=== PATIENT | female | born 1955 | race Caucasian/White ===

== ENCOUNTER → 2017-03-08 | Outpatient (CLI) | payer BC ==
[2017-03-08 12:06] LABS: CHOLESTEROL/HDL RATIO 5.3
== END | disposition home or self-care (01) ==
LOC: C.LAB1850 10:19
PROVIDERS: ATTEND Family Medicine
DX: Z00.00 Encounter for general adult medical examination without abnormal findings (principal)

== ENCOUNTER → 2017-06-28 | Outpatient (CLI) | payer BC, OTHER ==
[~2017-06-28] MED LIST: CIPR-255 PO; EFF75 PO; METR-163 PO; [UNRECOGNIZED DRUG - OTHER] PO
--- NOTE | 2017-06-28 14:58 | MAMMOGRAPHY REPORT ---
BILATERAL DIGITAL SCREENING MAMMOGRAM TOMOSYNTHESIS WITH CAD: 06/28/2017 CLINICAL HISTORY: Routine screening. TECHNIQUE: Breast tomosynthesis in addition to standard 2D mammography was performed. Current study was also evaluated with a Computer Aided Detection (CAD) system. COMPARISON: Comparison is made to exams dated: 05/11/2016 mammogram, 04/17/2015 mammogram, 02/21/2014 mammogram, 04/21/2009 mammogram - [facility], 06/05/2007, and 03/23/2004 mammogram - [facility]. BREAST COMPOSITION: The tissue of both breasts is almost entirely fatty. FINDINGS: There are benign-appearing calcifications in both breasts. No suspicious mass, architectur al distortion or cluster of suspicious microcalcifications is seen. IMPRESSION: ACR BI-RADS CATEGORY 1: NEGATIVE There is no mammographic evidence of malignancy. A 1 year screening mammogram is recommended. The pa tient will receive written notification of the results. Approximately 10% of breast cancers are not detected with mammography. A negative mammographic report should not delay biopsy if a clinically suggestive mass is present. Doreen Rivera M.D. ay/:06/28/2017 12:40:52 Rail Filler: David LOMAS([place])(M), [facility] letter sent: Normal 1/2 BI-RADS Code: ACR BI-RADS Category 1: Negative
== END | disposition home or self-care (01) ==
LOC: C.MAMM 10:23
PROVIDERS: ATTEND Nurse Practitioner Adult Health
DX: Z12.31 Encounter for screening mammogram for malignant neoplasm of breast (principal)

== ENCOUNTER 2017-11-08 18:23 | Emergency (ER) | payer OTHER ==
[~2017-11-08] VITALS: Ht 167.6 cm; Wt 90.7 kg
[2017-11-08 18:28] VITALS: TEMP 37.1; Ht 167.6 cm; Wt 90.7 kg
--- NOTE | 2017-11-08 19:18 | EMERGENCY ROOM VISIT NOTE ---
History First contact with patient: 18:31 Chief Complaint: ABDOMINAL PAIN Stated Complaint: ABD PAIN Nursing Triage Summary: Ambulates to room. Pt reports constipation x 2 weeks with bilateral lower abd pain. Small hard, pellet like bm yesterday. Pt has been taking stool softener, probiotics. Pt states, " My lower belly feels like it could explode." History of Present Illness The patient is a 62 year old female who presents to the Emergency Room via private with complaints of "abdominal pain" the patient states that for the past 2 weeks she has had difficulty with moving her bowels. She states that this started shortly thereafter taking antibiotics and steroids for an ear infection. No diarrhea. She states that she has small bowel movements but nothing like she should be experiencing. She also notes abdominal bloating, and eructation. Pain is a 4/10. With walking it is a 9/10.. She describes a sensation as if her stomach is going to "fall off". She has tried stool softeners, probiotics and acidophilus without relief. She notes numerous abdominal surgeries in the past with her appendix being removed, gallbladder being removed and her uterus. No fevers, chills, chest pain, shortness of breath, vaginal discharge, urinary symptoms. Review of Systems A complete 10-point Review of Systems was discussed with the patient, with pertinent positives and negatives listed in the History of Present Illness. All remaining Review of Systems questions can be considered negative unless otherwise specified. Past Medical/Surgical History Surgeries as noted in HPI Family History Non contributory Social History Smoking Status: Former Smoker Social History: Pt. lives locally Current/Historical Medications Scheduled Ciprofloxacin Hcl (Cipro), 500 MG PO BID Metronidazole (Flagyl), 500 MG PO TID Venlafaxine Hcl (Effexor), 75 MG PO DAILY [Revatol], 1 DOSE PO DAILY Allergies Coded Allergies: Codeine (Verified Adverse Reaction, Severe, HALLUCINATIONS, 11/08/17) Morphine (Verified Adverse Reaction, Severe, HALLUCINATIONS, 11/08/17) Physical Exam Vital Signs Date Time Temp Pulse Resp B/P (MAP) Pulse Ox O2 Delivery O2 Flow Rate FiO2 11/08/17 23:11 99 18 125/86 96 11/08/17 22:13 91 18 109/75 95 Room Air 11/08/17 20:43 98 124/77 97 11/08/17 18:28 37.1 112 20 122/85 98 Room Air Physical Exam VITAL SIGNS - Vital signs and nursing notes were reviewed. Stable. Tachycardic GENERAL -62-year-old female appearing her stated age who is in no acute distress. Communicates well with provider and answers questions appropriately. SKIN - Without rashes. No meningeal or petechial rash. HEAD - NC/AT. EYES - PERRL with EOMI bilaterally. Sclera anicteric. EARS - No deformities of external structures noted on gross examination bilaterally. NOSE - Midline and without cyanosis. No epistaxis or purulent drainage noted. MOUTH/OROPHARYNX - Without perioral cyanosis LUNGS - Chest wall symmetric without accessory muscle use, intercostals retractions, or central cyanosis. Normal vesicular breath sounds CTA B/L. No wheezes, rales, or rhonchi appreciated. CARDIAC - RRR with S1/S2. No murmur, rubs, or gallops appreciated. ABDOMEN - Abdominal contour normal without pulsations or visible masses. BS normoactive all four quadrants. Generalized abdominal tenderness with evidence of bloating noted in the inferior quadrants But no palpable masses, hepatosplenomegaly, or ascites noted. EXTREMITIES - No clubbing or peripheral cyanosis. No pretibial edema present. +5 /5 strength noted in UE/LE bilaterally. NEUROLOGIC - Cranial nerves II through XII grossly intact. Sensory intact to light touch throughout. PSYCH - A&O, and cooperates fully with examiner. Pt is very pleasant and interacts well with examiner. Medical Decision & Procedures ER Provider Diagnostic Interpretation: KUB HISTORY: Acute generalized abdominal pain Abd pain, no bm COMPARISON: None. FINDINGS: The bowel gas pattern is non-obstructive. Mild gaseous distention of colon within the abdominal right lower quadrant. Cholecystectomy clips are noted. There is no organomegaly. Calcifications of the pelvis suggest phleboliths. No renal calculi. No ureteral calculi. No pneumoperitoneum or pneumatosis. No fracture. 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 IMPRESSION: Nonobstructive bowel gas pattern. Electronically signed by: Garrett Vargas M.D. 11/08/2017 7:35 PM Dictated Date/Time: 11/08/2017 7:34 PM ABDOMEN AND PELVIS CT WITH IV AND ORAL CONTRAST CT DOSE: 1161.78 mGy.cm HISTORY: Generalized abdominal pain. No bowel movements. TECHNIQUE: Multiaxial CT images of the abdomen and pelvis were performed following the use of intravenous and oral contrast. A dose lowering technique was utilized adhering to the principles of ALARA. COMPARISON STUDY: KUB 11/08/2017. FINDINGS: The lung bases are clear. No pneumoperitoneum. No pneumatosis. No fractures within the visualized osseous structures. Hepatic steatosis. Cholecystectomy. A 4 mm hypodense lesion within the left hepatic lobe. This is too small to characterize. The pancreas, spleen, and right adrenal gland are unremarkable. There is a 7 mm indeterminate nodule within the left adrenal gland. 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 A few scattered bilateral renal hypodense lesions within the largest in the left kidney measuring 9 mm. These are technically too small to characterize but statistically represent cysts. No hydronephrosis. Hysterectomy. The bladder is unremarkable. There is an inflamed diverticulum within the distal sigmoid colon with surrounding fat stranding. This is consistent with acute diverticulitis. No perforation or abscess at this time. No evidence for bowel obstruction. IMPRESSION: 1. Acute sigmoid diverticulitis. No perforation or abscess at this time. Follow-up nonemergent colonoscopy can be performed once the patient's diverticulitis has resolved to exclude the less likely possibility of an underlying lesion. 2. Additional findings as described above. Electronically signed by: Darell [place] M.D. 11/08/2017 9:48 PM Dictated Date/Time: 11/08/2017 9:41 PM Laboratory Results 11/08/17 19:00 Red Blood Count 5.09, Mean Corpuscular Volume 88.4, Mean Corpuscular Hemoglobin 30.1, Mean Corpuscular Hemoglobin Concent 34.0, Mean Platelet Volume 9.1, Neutrophils (%) (Auto) 66.7, Lymphocytes (%) (Auto) 23.6, Monocytes (%) (Auto) 7.1, Eosinophils (%) (Auto) 0.9, Basophils (%) (Auto) 0.2, Neutrophils # (Auto) 8.60, Lymphocytes # (Auto) 3.05, Monocytes # (Auto) 0.92, Eosinophils # (Auto) 0.12, Basophils # (Auto) 0.03 11/08/17 19:00 Test 11/08/17 18:45 11/08/17 19:00 Urine Color YELLOW Urine Appearance CLEAR (CLEAR) Urine pH 7.5 (4.5-7.5) Urine Specific [place] 1.011 (1.000-1.030) Urine Protein NEG (NEG) Urine Glucose (UA) NEG (NEG) Urine Ketones NEG (NEG) Urine Occult Blood NEG (NEG) Urine Nitrite NEG (NEG) Urine Bilirubin NEG (NEG) Urine Urobilinogen NEG (NEG) Urine Leukocyte Esterase SMALL (NEG) Urine WBC (Auto) 1-5 /hpf (0-5) Urine RBC (Auto) 0-4 /hpf (0-4) Urine Hyaline Casts (Auto) 0 /lpf (0-5) Urine Epithelial Cells (Auto) 20-30 /lpf (0-5) Urine Bacteria (Auto) NEG (NEG) White Blood Count 12.91 K/uL (4.8-10.8) Red Blood Count 5.09 M/uL (4.2-5.4) Hemoglobin 15.3 g/dL (12.0-16.0) Hematocrit 45.0 % (37-47) Mean Corpuscular Volume 88.4 fL (80-100) Mean Corpuscular Hemoglobin 30.1 pg (25-34) Mean Corpuscular Hemoglobin Concent 34.0 g/dl (32-36) Platelet Count 231 K/uL (130-400) Mean Platelet Volume 9.1 fL (7.4-10.4) Neutrophils (%) (Auto) 66.7 % Lymphocytes (%) (Auto) 23.6 % Monocytes (%) (Auto) 7.1 % Eosinophils (%) (Auto) 0.9 % Basophils (%) (Auto) 0.2 % Neutrophils # (Auto) 8.60 K/uL (1.4-6.5) Lymphocytes # (Auto) 3.05 K/uL (1.2-3.4) Monocytes # (Auto) 0.92 K/uL (0.11-0.59) Eosinophils # (Auto) 0.12 K/uL (0-0.5) Basophils # (Auto) 0.03 K/uL (0-0.2) RDW Standard Deviation 42.0 fL (36.4-46.3) RDW Coefficient of Variation 13.0 % (11.5-14.5) Immature Granulocyte % (Auto) 1.5 % Immature Granulocyte # (Auto) 0.19 K/uL (0.00-0.02) Anion Gap 6.0 mmol/L (3-11) Est Creatinine Clear Calc Drug Dose 76.2 ml/min Estimated GFR () 81.6 Estimated GFR (Non- 70.4 BUN/Creatinine Ratio 12.5 (10-20) Calcium Level 8.5 mg/dl (8.5-10.1) Magnesium Level 2.5 mg/dl (1.8-2.4) Total Bilirubin 0.4 mg/dl (0.2-1) Aspartate Amino Transf (AST/SGOT) 19 U/L (15-37) Alanine Aminotransferase (ALT/SGPT) 38 U/L (12-78) Alkaline Phosphatase 145 U/L (45-117) Total Protein 7.4 gm/dl (6.4-8.2) Albumin 3.8 gm/dl (3.4-5.0) Globulin 3.6 gm/dl (2.5-4.0) Albumin/Globulin Ratio 1.1 (0.9-2) Lipase 217 U/L (73-393) Thyroid Stimulating Hormone (TSH) 0.875 uIu/ml (0.300-4.500) Medications Administered Medications (Trade) Dose Ordered Sig/Nader Route Start Time Stop Time Status Last Admin Dose Admin Ciprofloxacin (Cipro 500MG Home Pack) 1 homepack UD STAT PO 11/08/17 22:49 11/08/17 22:50 DC 11/08/17 23:03 1 HOMEPACK Metronidazole (Flagyl Tab) 500 mg NOW STAT PO 11/08/17 22:49 11/08/17 22:50 DC 11/08/17 23:04 500 MG Metronidazole (Flagyl Tab) 500 mg NOW STAT PO 11/08/17 22:49 11/08/17 22:50 DC 11/08/17 23:04 500 MG Medical Decision Patient was seen and evaluated as above in room before. Review was performed of nursing notes and vital signs. After obtaining a thorough history and physical examination the above work up was performed. She presents to us today with 2 weeks of constipation/abdominal pain. KUB was obtained. Nonobstructive bowel gas pattern. Baseline labs were obtained. There is leukocytosis but no concerning anemia. Metabolic panel does reveal hypomagnesemia slightly as well as some alk phos elevation. CT scan was obtained with the use of IV and oral contrast of the abdomen and pelvis. Results as above. Acute diverticulitis noted. She appears stable for outpatient management. She is hemodynamically stable and is afebrile. Minimal white count. No perforation. Benefit versus risk of Augmentin versus Cipro/Flagyl discussed. Decision was made to pursue outpatient Cipro Flagyl. She is to follow with the family doctor or return with worsening. She was educated upon incidentals today. The patient was educated upon management, had questions answered prior to discharge, and was discharged home in good condition. Because her pharmacy was closed she was given a home pack of Cipro here, with 1 tablet being for now as well as 1 tablet of Flagyl with one being for home. Case was discussed with the attending physician. In the evaluation and treatment of this patient the following differential diagnoses were entertained: Diverticulitis, appendicitis, pelvic etiology, constipation, among others. Impression Primary Impression: Diverticulitis Departure Information Dispostion Home / Self-Care Condition GOOD Prescriptions Metronidazole (Flagyl) 500 Mg Tab 500 MG PO TID, #28 TAB Prov: Keshawn Cavazos PA-C 11/08/17 Ciprofloxacin Hcl (CIPRO) 500 Mg Tab 500 MG PO BID for 9 Days, #18 TAB Prov: Keshawn Cavazos PA-C 11/08/17 Referrals Magui Raygoza D.O. (PCP) Patient Instructions Diverticulitis Dc, ED Diet Chambers, ED Diet Clear Liquid, [facility] Additional Instructions You have been treated in the Emergency Department your Abdominal Pain. You have diverticulitis. I recommend a clear liquid diet for 24 hours. Please refer to the attached handout. Then progressed to a bland diet for 1 day as well. If you have worsening of symptoms please go back to a clear diet for 1 day. Please watch for signs of a fever if this would develop we have worsening symptoms please return. Ciprofloxacin 500 mg every 12 hours. Please do not do any heavy lifting with this medication. Flagyl (metronidazole) 500 mg every 8 hours. Please do not drink alcohol with this. For pain control, you can use the following [id number] medicines (if >12 yo): - Regular strength (325mg/tab) Tylenol (acetaminophen) 2 tabs every 4-6 hours as needed. Do not exceed 12 tablets in a 24 hour period. Avoid taking more than 3 grams (3000 mg) of Tylenol per day. This includes any other sources of acetaminophen you may take on a regular basis. - Regular strength (200 mg/tab) Advil (ibuprofen) 1-2 tabs every 4-6 hours as needed. Do not exceed a dose of 3200 mg per day. Drink plenty of water and stay well hydrated. As with any trip to the Emergency Department, you should follow-up with your Primary Care Provider from today's visit. Please follow-up regarding her CAT scan and your symptoms today. Return to the emergency department if your symptoms persist despite treatment plan outlined above or if the following symptoms occur: increased fevers, chills , worsening nausea/vomiting, blood in your stool or urine.
[2017-11-08 19:22] LABS: BASO % 0.2 %; BASO ABS # 0.03 K/uL (0-0.2); EOS % 0.9 %; EOS ABS # 0.12 K/uL (0-0.5); HEMOGLOBIN 15.3 g/dL (12.0-16.0); IG# 0.19 K/uL (0.00-0.02); LYMPH % 23.6 %; LYMPH ABS # 3.05 K/uL (1.2-3.4); MEAN CELL VOLUME 88.4 fL (80-100); MEAN CORPUSCULAR HEMOGLOBIN 30.1 pg (25-34); MEAN PLATELET VOLUME 9.1 fL (7.4-10.4); MONO % 7.1 %; MONO ABS # 0.92 K/uL (0.11-0.59); NEUT % 66.7 %; PLATELET COUNT 231 K/uL (130-400); WHITE BLOOD COUNT 12.91 K/uL (4.8-10.8)
[2017-11-08] MEDS ORDERED: OPTIRAY 320 IV PRN (19:30)
--- NOTE | 2017-11-08 19:37 | DIAGNOSTIC IMAGING REPORT ---
KUB HISTORY: Acute generalized abdominal pain Abd pain, no bm COMPARISON: None. FINDINGS: The bowel gas pattern is non-obstructive. Mild gaseous distention of colon within the abdominal right lower quadrant. Cholecystectomy clips are noted. There is no organomegaly. Calcifications of the pelvis suggest phleboliths. No renal calculi. No ureteral calculi. No pneumoperitoneum or pneumatosis. No fracture. 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 IMPRESSION: Nonobstructive bowel gas pattern. Electronically signed by: Garrett Vargas M.D. 11/08/2017 7:35 PM Dictated Date/Time: 11/08/2017 7:34 PM
[2017-11-08] MEDS ORDERED: EFF75 PO (19:46)
[2017-11-08] MEDS ORDERED: [UNRECOGNIZED DRUG - OTHER] PO (19:46)
[2017-11-08 19:50] LABS: ALBUMIN 3.8 gm/dl (3.4-5.0); CALCIUM 8.5 mg/dl (8.5-10.1); CREATININE 0.89 mg/dl (0.60-1.20); POTASSIUM 3.8 mmol/L (3.5-5.1); TOTAL PROTEIN 7.4 gm/dl (6.4-8.2)
--- NOTE | 2017-11-08 21:49 | DIAGNOSTIC IMAGING REPORT ---
ABDOMEN AND PELVIS CT WITH IV AND ORAL CONTRAST CT DOSE: 1161.78 mGy.cm HISTORY: Generalized abdominal pain. No bowel movements. TECHNIQUE: Multiaxial CT images of the abdomen and pelvis were performed following the use of intravenous and oral contrast. A dose lowering technique was utilized adhering to the principles of ALARA. COMPARISON STUDY: KUB 11/08/2017. FINDINGS: The lung bases are clear. No pneumoperitoneum. No pneumatosis. No fractures within the visualized osseous structures. Hepatic steatosis. Cholecystectomy. A 4 mm hypodense lesion within the left hepatic lobe. This is too small to characterize. The pancreas, spleen, and right adrenal gland are unremarkable. There is a 7 mm indeterminate nodule within the left adrenal gland. 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 A few scattered bilateral renal hypodense lesions within the largest in the left kidney measuring 9 mm. These are technically too small to characterize but statistically represent cysts. No hydronephrosis. Hysterectomy. The bladder is unremarkable. There is an inflamed diverticulum within the distal sigmoid colon with surrounding fat stranding. This is consistent with acute diverticulitis. No perforation or abscess at this time. No evidence for bowel obstruction. IMPRESSION: 1. Acute sigmoid diverticulitis. No perforation or abscess at this time. Follow-up nonemergent colonoscopy can be performed once the patient's diverticulitis has resolved to exclude the less likely possibility of an underlying lesion. 2. Additional findings as described above. Electronically signed by: Darell [place] M.D. 11/08/2017 9:48 PM Dictated Date/Time: 11/08/2017 9:41 PM
[2017-11-08] MEDS ORDERED: METRONIDAZOLE 250 MG TAB PO STA ×2 (22:49)
[2017-11-08] MEDS ORDERED: CIPROFLOXACIN 500MG HOME PACK PO STA (22:49)
[2017-11-08] MEDS ORDERED: METR-163 PO (22:52)
[2017-11-08] MEDS ORDERED: CIPR-255 PO (22:52)
[2017-11-08] MEDS ORDERED: EMPTY 8 DRAM VIAL ONE (23:01)
[2017-11-08 23:11] VITALS: BP 125/86; PULSE 99; O2SAT 96
== END 2017-11-08 23:08 | disposition home or self-care (01) ==
LOC: C.EDB 18:25
DX: K57.92 Diverticulitis of intestine, part unspecified, without perforation or abscess without bleeding (principal); K59.00 Constipation, unspecified; Z87.891 Personal history of nicotine dependence; Z79.899 Other long term (current) drug therapy; Z88.5 Allergy status to narcotic agent

== ENCOUNTER 2022-01-30 06:28 | Inpatient (IN) ==
[2022-01-30] MEDS ORDERED: ASPIRIN CHEW 324 MG ONE (06:44)
[2022-01-30] MEDS ORDERED: NITROGLYCERIN SL 0.4 MG/TAB TAB ONE (06:45)
[2022-01-30] MEDS ORDERED: ASPIRIN CHEW 324 MG PO STA (06:50)
[2022-01-30] MEDS: NITROGLYCERIN SL 0.4 MG/TAB TAB SL PRN ×2 (06:53→10:50)
[2022-01-30] MEDS ORDERED: NITROGLYCERIN/D5W 100MCG/ML 20ML SYR ONE (07:02)
[2022-01-30] MEDS ORDERED: HEPARIN (PORCINE) 1000 UNIT/ML 10 ML (CATH LAB USE ONLY) ONE ×2 (07:02→07:46)
[2022-01-30] MEDS ORDERED: fentaNYL citrate 100 MCG/2 ML VIAL ONE (07:02)
[2022-01-30] MEDS ORDERED: niCARdipine HCL INJ 2.5 MG/ML 10 ML AMP ONE (07:02)
[2022-01-30] MEDS ORDERED: MIDAZOLAM HCL 1 MG/ML 2ML VIAL ONE (07:02)
[2022-01-30] MEDS ORDERED: ONDANSETRON INJ 2 MG/ML 2 ML VIAL IV STA (07:03)
[2022-01-30] MEDS ORDERED: FAMOTIDINE 20MG/5ML IV PUSH IV ONE (07:03)
[2022-01-30] MEDS ORDERED: FAMOTIDINE 20MG IV PUSH 20 MG/5 ML SYR IV STA (07:03)
[2022-01-30] MEDS ORDERED: ONDANSETRON INJ 2 MG/ML 2 ML VIAL ONE (07:03)
[2022-01-30 07:08] LABS: Basophils # (auto) 0.08 K/uL (0-0.2); Basophils % (auto) 0.7 %; Eosinophils # (auto) 0.25 K/uL (0-0.50); Eosinophils % (auto) 2.2 %; Hematocrit (blood only) 50.5 % (34.1-44.9); Hemoglobin 16.4 g/dl (12.0-16.0); Immature Granulocytes # (auto) 0.25 K/uL (0.00-0.02); Immature Granulocytes % (auto) 2.2 %; Lymphocytes # (auto) 3.43 K/uL (1.2-3.4); Lymphocytes % (auto) 29.6 %; Mean Corpuscular Hemoglobin 30.1 pg (25.0-34.0); Mean Corpuscular Hgb Conc 32.5 g/dL (32.0-36.0); Mean Corpuscular Volume 92.7 fL (80.0-100.0); Mean Platelet Volume 9.3 fL (9.4-12.3); Neutrophils # (auto) 6.88 K/uL (1.4-6.5); Neutrophils % (auto) 59.3 %; Platelet Count 295 K/uL (130-400); RDW Standard Deviation 43.8 fL (36.4-46.3); Red Blood Count 5.45 M/uL (3.93-5.22); White Blood Count 11.59 K/ul (4.8-10.8)
[2022-01-30 07:16] LABS: Partial Thromboplastin Ratio 0.9; Partial Thromboplastin Time 23.4 Seconds (21.0-31.0); Prothrombin Time 10.2 Seconds (9.0-12.0)
--- NOTE | 2022-01-30 07:18 | Emergency Department Note ---
Impression & Plan STEMI (ST elevation myocardial infarction) ED Provider Note CHIEF COMPLAINT: Chest pain, vomiting HISTORY OF PRESENT ILLNESS: This 66-year-old female patient presents to the emergency department with complaints of substernal chest pain, nausea and recurrent vomiting. The pain has been present off and on for the last 2 weeks. She states she has "an esophageal issue" that she believes is causing the problem. This morning she rates the pain at 20 out of 10 and has not been able to get control. She denies any cardiac issues and denies taking any pain medication prior to arrival. Patient denies ever having a cardiac patient in the past she does admit to a history of an acoustic neuroma that he has had radiation treatments to within the last year. She states that after she had some bleeding that caused "chronic vertigo that was not vertigo." Patient denies eating anything unusual, denies any abdominal pain, fevers, diarrhea or blood in the stools. She did not take any prior to arrival. Of note the patient has tested positive for COVID approximately 2 weeks ago. REVIEW OF SYSTEMS: A review of systems was performed with positives and pertinent negatives listed in the history of present illness. 10 systems were reviewed and are otherwise negative. ALLERGIES: see below MEDICATIONS: see below PMH: see below SOCIAL HISTORY: see below DDx: Cardiac ischemia, aortic dissection, pulmonary embolism, pneumothorax, pneumonia, pericarditis, myocarditis, esophageal rupture, GERD, cholecystitis, pancreatitis, musculoskeletal, as well as other pathologies. PHYSICAL EXAM: Vital signs reviewed. General: Well-appearing 66 yo female, in no significant distress. Slightly diaphoretic HEENT: No scleral icterus, PERRLA, neck supple. Atraumatic. Cardiovascular: Regular rate and rhythm, no extra sounds. Pulmonary: Clear to auscultation bilaterally, normal work of breathing. Abdomen: Soft, obese, nontender, nondistended, positive bowel sounds. Musculoskeletal: Atraumatic, no peripheral edema. Neurologic: Patient awake alert and oriented x 3, speech is clear Skin: Warm, dry, no rash EMERGENCY DEPARTMENT COURSE/MDM: This patient was evaluated and appeared to be in no significant distress. IV access was obtained and laboratory work was drawn. EKG was performed and reveals ST elevation in the anterior leads consistent with ST elevation LA. A heart alert was called and I did speak with Dr. Paez by phone. Patient was medicated with 324 mg of aspirin to chew and had been given 2 sublingual nitroglycerin tablets. Chest x-ray reveals no evidence of focal infiltrate or CHF. Preparations were made for the catheterization lab. Patient and daughter at the bedside were made aware of the plans and agreed. Patient did receive IV Zofran and IV Pepcid for nausea and vomiting in the room. IV fluids were initiated due to some hypotension, likely secondary to the nitroglycerin. Patient's continue low she did have improvement to a 3/10. Care was then handed off to Dr. Paez as the patient was taken to the cardiac catheterization lab. MONITORING: An order for cardiac monitoring was placed and the patient is noted to be in a NSR at 83 beats per minute. RADIOLOGY: see below EKG: #1 Normal sinus rhythm at [address] elevations, left anterior fascicular block, acute ST elevation in the anterior leads consistent with STEMI, QTC is 433. No PVC, no PAC. When compared to previous dated December 05, 2019, ST elevation is now present in the anterior leads. 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 This was a life/limb threatening event. This 45 minutes is in excess of all separately billable procedures. 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 Schwannoma Sensorineural hearing loss (SNHL) of right ear with restricted hearing of left ear Social History Smoking Status: Current every day smoker Tobacco Type: Cigarettes Second Hand Exposure: Yes; Do You Dip or Chew Tobacco: No; Tobacco Cessation Education Requested by Patient: Yes Hx Alcohol Use: Yes Alcohol type: wine Hx Substance Use: No Preferred Language: Turkish Communication Ability: Effective Customer Care Specialist Required: No Beliefs That Will Affect Care: None Current Living Situation: Spouse and Family Other Information That Helps Us Care for You: No Feels Safe at Home: Yes Safety Concerns: Feels Safe At This Time Assistive Devices: None Allergies Allergies Allergy/AdvReac Type Severity Reaction Status Date / Time codeine AdvReac Severe HALLUCINATI Verified 12/05/19 17:38 ONS morphine AdvReac Severe HALLUCINATI Verified 12/05/19 17:38 ONS Home Meds Home Medications Medication Instructions Recorded Confirmed calcium carbonate 600 mg calcium 600 mg PO DAILY 12/05/19 12/05/19 (1,500 mg) tablet (Calcium) cholecalciferol (vitamin D3) 125 125 mcg PO DAILY 12/05/19 12/05/19 mcg (5,000 unit) tablet (Vitamin D3) cyanocobalamin (vitamin B-12) 1,000 mcg PO DAILY 12/05/19 12/05/19 1,000 mcg tablet (Vitamin B-12) famotidine 20 mg tablet (Pepcid) 20 mg PO DAILY 12/05/19 12/05/19 fluticasone propionate 50 2 spray intranasal DAILY PRN Nasal 12/05/19 12/05/19 mcg/actuation nasal Congestion spray,suspension (Flonase Allergy Relief) bupropion HCl 150 mg 24 hr tablet, 150 mg PO 01/30/22 extended release Previous Rx's Medication Instructions Recorded meclizine 25 mg tablet 25 mg PO QID PRN dizziness #20 tabs 12/05/19 promethazine 25 mg tablet 25 mg PO Q6H PRN nausea and 12/05/19 vomiting #14 tabs Results & Data (ED) Vital Signs Vital Signs - 24 hr 01/30/22 06:35 01/30/22 06:43 01/30/22 06:52 Temperature 36.9 C Temperature Source Oral Pulse Rate 87 95 H Pulse Rate [Finger] 89 Pulse Rate from SpO2 Sensor Respiratory Rate 24 24 18 Respiratory Effort / Characteristics Non-Labored Spontaneous Respiratory Depth Normal Blood Pressure 162/113 H 156/119 H Blood Pressure [Right Arm] 170/110 H Blood Pressure Mean 129 131 Blood Pressure Mean [Right Arm] 130 Blood Pressure Position [Right Arm] Sitting Pulse Oximetry 98 97 Oxygen Delivery Method Room Air Room Air Oxygen Flow Rate Sepsis Recent Fever Within 48 Hours No Sepsis New/Unexplained Change in Mental Status No Sepsis Action Taken by Nursing No Action Required 01/30/22 06:58 01/30/22 06:58 01/30/22 07:01 Temperature Temperature Source Pulse Rate Pulse Rate [Finger] 91 H Pulse Rate from SpO2 Sensor Respiratory Rate 24 Respiratory Effort / Characteristics Respiratory Depth Blood Pressure Blood Pressure [Right Arm] 100/67 Blood Pressure Mean Blood Pressure Mean [Right Arm] 78 Blood Pressure Position [Right Arm] Pulse Oximetry 97 96 Oxygen Delivery Method Room Air Nasal Cannula Nasal Cannula Oxygen Flow Rate 2 2 Sepsis Recent Fever Within 48 Hours Sepsis New/Unexplained Change in Mental Status Sepsis Action Taken by Nursing 01/30/22 07:09 01/30/22 07:16 01/30/22 06:46 Temperature Temperature Source Pulse Rate 92 H Pulse Rate [Finger] 80 85 Pulse Rate from SpO2 Sensor Respiratory Rate 16 13 20 Respiratory Effort / Characteristics Respiratory Depth Blood Pressure Blood Pressure [Right Arm] 118/81 133/88 Blood Pressure Mean Blood Pressure Mean [Right Arm] 93 103 Blood Pressure Position [Right Arm] Pulse Oximetry 95 98 Oxygen Delivery Method Nasal Cannula Nasal Cannula Oxygen Flow Rate 2 2 Sepsis Recent Fever Within 48 Hours Sepsis New/Unexplained Change in Mental Status Sepsis Action Taken by Nursing 01/30/22 06:46 01/30/22 06:48 01/30/22 06:48 Temperature Temperature Source Pulse Rate 90 Pulse Rate [Finger] Pulse Rate from SpO2 Sensor 90 Respiratory Rate 20 Respiratory Effort / Characteristics Respiratory Depth Blood Pressure 146/110 H 170/110 H Blood Pressure [Right Arm] Blood Pressure Mean 122 130 Blood Pressure Mean [Right Arm] Blood Pressure Position [Right Arm] Pulse Oximetry 100 Oxygen Delivery Method Oxygen Flow Rate Sepsis Recent Fever Within 48 Hours Sepsis New/Unexplained Change in Mental Status Sepsis Action Taken by Nursing 01/30/22 06:50 01/30/22 06:53 01/30/22 06:53 Temperature Temperature Source Pulse Rate 96 H 94 H Pulse Rate [Finger] Pulse Rate from SpO2 Sensor 96 H 92 H Respiratory Rate 19 30 H Respiratory Effort / Characteristics Respiratory Depth Blood Pressure 129/85 Blood Pressure [Right Arm] Blood Pressure Mean 99 Blood Pressure Mean [Right Arm] Blood Pressure Position [Right Arm] Pulse Oximetry 97 97 Oxygen Delivery Method Oxygen Flow Rate Sepsis Recent Fever Within 48 Hours Sepsis New/Unexplained Change in Mental Status Sepsis Action Taken by Nursing 01/30/22 07:00 01/30/22 07:00 01/30/22 07:09 Temperature Temperature Source Pulse Rate 100 H Pulse Rate [Finger] Pulse Rate from SpO2 Sensor 99 H Respiratory Rate 13 Respiratory Effort / Characteristics Respiratory Depth Blood Pressure 100/67 118/81 Blood Pressure [Right Arm] Blood Pressure Mean 78 93 Blood Pressure Mean [Right Arm] Blood Pressure Position [Right Arm] Pulse Oximetry 95 Oxygen Delivery Method Oxygen Flow Rate Sepsis Recent Fever Within 48 Hours Sepsis New/Unexplained Change in Mental Status Sepsis Action Taken by Nursing 01/30/22 07:09 01/30/22 07:10 01/30/22 07:10 Temperature Temperature Source Pulse Rate 80 82 Pulse Rate [Finger] Pulse Rate from SpO2 Sensor 80 81 Respiratory Rate 23 26 H Respiratory Effort / Characteristics Respiratory Depth Blood Pressure 114/80 Blood Pressure [Right Arm] Blood Pressure Mean 91 Blood Pressure Mean [Right Arm] Blood Pressure Position [Right Arm] Pulse Oximetry 95 95 Oxygen Delivery Method Oxygen Flow Rate Sepsis Recent Fever Within 48 Hours Sepsis New/Unexplained Change in Mental Status Sepsis Action Taken by Nursing 01/30/22 07:15 01/30/22 07:15 01/30/22 08:28 Temperature Temperature Source Pulse Rate 74 Pulse Rate [Finger] Pulse Rate from SpO2 Sensor 75 82 Respiratory Rate 11 L Respiratory Effort / Characteristics Respiratory Depth Blood Pressure 133/88 Blood Pressure [Right Arm] Blood Pressure Mean 103 Blood Pressure Mean [Right Arm] Blood Pressure Position [Right Arm] Pulse Oximetry 97 97 Oxygen Delivery Method Oxygen Flow Rate Sepsis Recent Fever Within 48 Hours Sepsis New/Unexplained Change in Mental Status Sepsis Action Taken by Nursing 01/30/22 08:30 Temperature Temperature Source Pulse Rate 86 Pulse Rate [Finger] Pulse Rate from SpO2 Sensor 86 Respiratory Rate 19 Respiratory Effort / Characteristics Respiratory Depth Blood Pressure Blood Pressure [Right Arm] Blood Pressure Mean Blood Pressure Mean [Right Arm] Blood Pressure Position [Right Arm] Pulse Oximetry 98 Oxygen Delivery Method Oxygen Flow Rate Sepsis Recent Fever Within 48 Hours Sepsis New/Unexplained Change in Mental Status Sepsis Action Taken by Snf Medications Current Medication List: was personally reviewed by me Laboratory Data Attestation: I reviewed the patient's lab results. Result diagrams: 01/30/22 06:38 01/30/22 06:38 Lab Results 01/30/22 01/30/22 01/30/22 Range/Units 06:38 06:38 06:38 WBC 11.59 H (4.8-10.8) K/ul RBC 5.45 H (3.93-5.22) M/uL Hgb 16.4 H (12.0-16.0) g/dl Hct 50.5 H (34.1-44.9) % MCV 92.7 (80.0-100.0) fL MCH 30.1 (25.0-34.0) pg MCHC 32.5 (32.0-36.0) g/dL RDW Std Deviation 43.8 (36.4-46.3) fL RDW Coeff of Isha 13.0 (11.5-14.5) % Plt Count 295 (130-400) K/uL MPV 9.3 L (9.4-12.3) fL Immature Gran % (Auto) 2.2 % Neut % (Auto) 59.3 % Lymph % (Auto) 29.6 % [place]eton % (Auto) 6.0 % Eos % (Auto) 2.2 % Baso % (Auto) 0.7 % Neut # (Auto) 6.88 H (1.4-6.5) K/uL Lymph # (Auto) 3.43 H (1.2-3.4) K/uL Teton # (Auto) 0.70 (0.24-0.82) K/uL Eos # (Auto) 0.25 (0-0.50) K/uL Baso # (Auto) 0.08 (0-0.2) K/uL Immature Gran # (Auto) 0.25 H (0.00-0.02) K/uL PT 10.2 (9.0-12.0) Seconds INR 1.0 (0.9-1.1) APTT 23.4 (21.0-31.0) Seconds PTT Ratio 0.9 Sodium 139 (136-145) mmol/L Potassium 4.2 (3.5-5.1) mmol/L Chloride 104 (98-107) mmol/L Carbon Dioxide 26 (21-32) mmol/L Anion Gap 9 (3-11) BUN 15 (6-23) mg/dl Creatinine 1.10 (0.6-1.2) mg/dl Est Cr Clr Drug Dosing 62.0 ml/min Est GFR ( Amer) 61.4 ml/min Est GFR (Non-Af Amer) 53.0 ml/min BUN/Creatinine Ratio 13.6 (10-20) Glucose 189 H (70-99(Fasting)) mg/dl Calcium 10.0 (8.5-10.1) mg/dl Magnesium 2.0 (1.7-2.4) mg/dl Total Bilirubin 0.4 (0.2-1.0) mg/dl AST 54 H (13-39) U/L ALT 106 H (7-52) U/L Alkaline Phosphatase 128 H (34-104) U/L Total Creatine Kinase 107 (26-192) U/L Troponin I High Sens 74.3 H* (0-14) pg/ml Total Protein 7.9 (6.0-8.3) gm/dl Albumin 4.6 (3.4-5.0) gm/dl Globulin 3.3 (2.5-4.0) gm/dl Albumin/Globulin Ratio 1.4 (0.9-2) Lipase 53 (11-82) U/L TSH (0.300-4.500) uIu/ml SARS-CoV-2, RNA, NAAT (NEGATIVE) 01/30/22 01/30/22 Range/Units 06:38 07:15 WBC (4.8-10.8) K/ul RBC (3.93-5.22) M/uL Hgb (12.0-16.0) g/dl Hct (34.1-44.9) % MCV (80.0-100.0) fL MCH (25.0-34.0) pg MCHC (32.0-36.0) g/dL RDW Std Deviation (36.4-46.3) fL RDW Coeff of Isha (11.5-14.5) % Plt Count (130-400) K/uL MPV (9.4-12.3) fL Immature Gran % (Auto) % Neut % (Auto) % Lymph % (Auto) % Teton % (Auto) % Eos % (Auto) % Baso % (Auto) % Neut # (Auto) (1.4-6.5) K/uL Lymph # (Auto) (1.2-3.4) K/uL [place] # (Auto) (0.24-0.82) K/uL Eos # (Auto) (0-0.50) K/uL Baso # (Auto) (0-0.2) K/uL Immature Gran # (Auto) (0.00-0.02) K/uL PT (9.0-12.0) Seconds INR (0.9-1.1) APTT (21.0-31.0) Seconds PTT Ratio Sodium (136-145) mmol/L Potassium (3.5-5.1) mmol/L Chloride (98-107) mmol/L Carbon Dioxide (21-32) mmol/L Anion Gap (3-11) BUN (6-23) mg/dl Creatinine (0.6-1.2) mg/dl Est Cr Clr Drug Dosing ml/min Est GFR ( Amer) ml/min Est GFR (Non-Af Amer) ml/min BUN/Creatinine Ratio (10-20) Glucose (70-99(Fasting)) mg/dl Calcium (8.5-10.1) mg/dl Magnesium (1.7-2.4) mg/dl Total Bilirubin (0.2-1.0) mg/dl AST (13-39) U/L ALT (7-52) U/L Alkaline Phosphatase (34-104) U/L Total Creatine Kinase (26-192) U/L Troponin I High Sens (0-14) pg/ml Total Protein (6.0-8.3) gm/dl Albumin (3.4-5.0) gm/dl Globulin (2.5-4.0) gm/dl Albumin/Globulin Ratio (0.9-2) Lipase (11-82) U/L TSH 0.920 (0.300-4.500) uIu/ml SARS-CoV-2, RNA, NAAT NEGATIVE (NEGATIVE) Administered Medications Aspirin (Aspirin 81 Mg Ectab) [facility] [place] 03/01/22 08:59 Last Admin: 01/30/22 09:54 Dose: 81 mg Documented By: ANKUR Atorvastatin Calcium (Atorvastatin 40 Mg Tab) [facility] [place]: 03/01/22 08:59 Last Admin: 01/30/22 09:53 Dose: 80 mg Documented By: ANKUR Clopidogrel Bisulfate (Clopidogrel Bisulfate 75 Mg Tab) [facility] [place]: 03/01/22 08:59 Last Admin: 01/30/22 09:53 Dose: 75 mg Documented By: ANKUR Metoprolol Tartrate (Metoprolol Tartrate 25 Mg Tab) 25 mg PO BID [facility] Stop: 03/01/22 08:59 Last Admin: 01/30/22 09:54 Dose: 25 mg Documented By: ANKUR Nitroglycerin (Nitroglycerin Sl 0.4 Mg/Tab Tab) 0.4 mg SL Q5M PRN PRN Reason: Chest Pain Last Admin: 01/30/22 10:50 Dose: 0.4 mg Documented By: Admin: 01/30/22 06:53 Dose: 0.4 mg Documented By: HARSHA Pantoprazole Sodium (Pantoprazole 40 Mg Tab) 40 mg PO QAM [facility] Stop: 03/01/22 08:59 Last Admin: 01/30/22 09:53 Dose: 40 mg Documented By: ANKUR Discontinued Medications Aspirin (Aspirin Chew 324 Mg) Confirm Administered Dose 324 mg .ROUTE .STK-MED ONE Stop: 01/30/22 06:45 Last Admin: 01/30/22 06:48 Dose: 324 mg Documented By: HARSHA Aspirin (Aspirin Chew 324 Mg) 324 mg PO NOW STA Stop: 01/30/22 06:51 Last Admin: 01/30/22 06:53 Dose: Not Given Documented By: HARSHA Clopidogrel Bisulfate (Clopidogrel Bisulfate 300 Mg Tab) Confirm Administered Dose 600 mg .ROUTE .STK-MED ONE Stop: 01/30/22 08:16 Last Admin: 01/30/22 08:16 Dose: 600 mg Documented By: SUDHIR Famotidine (Famotidine 20mg/5ml Iv Push) Confirm Administered Dose 20 mg IV .STK-MED ONE Stop: 01/30/22 07:04 Last Admin: 01/30/22 07:05 Dose: 20 mg Documented By: KATRINA Fentanyl Citrate (Fentanyl Citrate 100 Mcg/2 Ml Vial) Confirm Administered Dose 100 mcg .ROUTE .STK-MED ONE Stop: 01/30/22 07:03 Last Increment: 01/30/22 08:14 Dose: 75 mcg Documented By: SUDHIR Heparin Sodium (Beef Lung) (Heparin 10 Unit/Ml 5 Ml Flush) Confirm Administered Dose 5 ml FLUSH .STK-MED ONE Stop: 01/30/22 07:47 Last Admin: 01/30/22 10:15 Dose: Not Given Documented By: ANKUR Heparin Sodium (Porcine) (Heparin (Porcine) 1000 Unit/Ml 10 Ml (Liquid Sugar Fortifier Use Only)) Confirm Administered Dose 10,000 units .ROUTE .STK-MED ONE Stop: 01/30/22 07:03 Last Admin: 01/30/22 08:14 Dose: 10,000 units Documented By: SUDHIR Heparin Sodium (Porcine) (Heparin (Porcine) 1000 Unit/Ml 10 Ml (Liquid Sugar Fortifier Use Only)) Confirm Administered Dose 10,000 units .ROUTE .STK-MED ONE Stop: 01/30/22 07:47 Last Admin: 01/30/22 08:16 Dose: 3,000 units Documented By: TLF Heparin Sodium/Sodium Chloride (Heparin In Nss Infusion 1000 Unit/500 Ml (2 U/Ml) Bag) Confirm Administered Dose 3,000 units IV .STK-MED ONE Stop: 01/30/22 07:03 Last Admin: 01/30/22 08:14 Dose: 3,000 units Documented By: TLF Famotidine (Pepcid 20mg Iv Push) 20 mg in 5 mls @ 2.5 mls/min IV NOW STA Stop: 01/30/22 07:04 Last Admin: 01/30/22 10:15 Dose: Not Given Documented By: ANKUR Midazolam HCl (Midazolam Hcl 1 Mg/Ml 2ml Vial) Confirm Administered Dose 2 mg .ROUTE .STK-MED ONE Stop: 01/30/22 07:03 Last Admin: 01/30/22 08:15 Dose: 2 mg Documented By: BRYCEF Morphine Sulfate (Morphine Sulfate 2 Mg/Ml Carp) 2 mg IV ONCE ONE Stop: 01/30/22 11:22 Last Admin: 01/30/22 11:25 Dose: 2 mg Documented By: ANKUR Nicardipine HCl (Nicardipine Hcl Inj 2.5 Mg/Ml 10 Ml Amp) Confirm Administered Dose 25 mg .ROUTE .STK-MED ONE Stop: 01/30/22 07:03 Last Admin: 01/30/22 08:15 Dose: 25 mg Documented By: TLF Nitroglycerin (Nitroglycerin Sl 0.4 Mg/Tab Tab) Confirm Administered Dose 0.4 mg .ROUTE .STK-MED ONE Stop: 01/30/22 06:46 Last Admin: 01/30/22 06:48 Dose: 0.4 mg Documented By: CC Nitroglycerin/Dextrose (Nitroglycerin/D5w 100mcg/Ml 20ml Syr) Confirm Admin istered Dose 2,000 mcg .ROUTE .STK-MED ONE Stop: 01/30/22 07:03 Last Admin: 01/30/22 08:15 Dose: 2,000 mcg Documented By: TLF Ondansetron HCl (Ondansetron Inj 2 Mg/Ml 2 Ml Vial) Confirm Administered Dose 4 mg .ROUTE .STK-MED ONE Stop: 01/30/22 07:04 Last Admin: 01/30/22 07:03 Dose: 4 mg Documented By: KATRINA Ondansetron HCl (Ondansetron Inj 2 Mg/Ml 2 Ml Vial) 4 mg IV NOW STA Stop: 01/30/22 07:04 Last Admin: 01/30/22 10:15 Dose: Not Given Documented By: MINES Imaging Data Radiologist's Impression: Chest X-Ray 01/30/22 06:50 XR chest 1V portable HISTORY: 66 years-old Female Chest pain acute atypical chest pain COMPARISON: None TECHNIQUE: Portable AP view of the chest FINDINGS: Cardiomediastinal and hilar silhouettes are within normal limits. No pneumothorax, pleural effusion, airspace consolidation or overt pulmonary edema. Degenerative changes of the shoulders and spine. IMPRESSION: No acute process. ACT 112: Negative or not required by law. The above report was generated using voice recognition software. It may contain grammatical, syntax or spelling errors. Electronically signed by: Jerome Vargas M.D. 01/30/2022 8:44 AM Blood Pressure Blood Pressure Findings: Normal blood pressure Discharge Plan Visit Data Chief Complaint: Chest Pain Stated Complaint: +COVID, CHEST PAIN,VOMITING ED Provider: Loretta Dan Discharge Problem: STEMI (ST elevation myocardial infarction) Discharge Instructions Interventions: ED Discharge Assessment Last Done: 01/30/22 07:17 : STEMI (ST elevation myocardial infarction) Qualifiers: Involved coronary artery: other anterior wall coronary artery Qualified Code(s): I21.09 - ST elevation (STEMI) myocardial infarction involving other coronary artery of anterior wall
[2022-01-30 07:21] LABS: Albumin Globulin Ratio 1.4 (0.9-2); Albumin Level 4.6 gm/dl (3.4-5.0); BUN Creatinine Ratio 13.6 (10-20); Bilirubin,Total 0.4 mg/dl (0.2-1.0); Est GFR (African American) 61.4 ml/min; Globulin 3.3 gm/dl (2.5-4.0); Potassium 4.2 mmol/L (3.5-5.1); Total Protein 7.9 gm/dl (6.0-8.3)
--- NOTE | 2022-01-30 07:26 | Cardiology Consultation ---
Date of Consultation January 30, 2022 Assessment & Plan (1) STEMI (ST elevation myocardial infarction): Plan Presentation consistent with anterior STEMI and recommend proceeding with emergent cardiac catheterization and likely primary PCI. No apparent contraindications to procedure. Discussed risks, benefits, alternatives of procedure with patient and they are willing to proceed. Further recommendations pending findings of coronary angiography. History of Present Illness History of Present Illness 66-year-old woman here with acute chest pain and ECG concerning for acute VA. Patient seen emergently in the ED after heart alert activated on arrival. No prior cardiac history. Cardiac risk factors include ongoing tobacco use, and family history of coronary artery disease. 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 Also with question esophageal spasm in the past Has been having stuttering intermittent chest pain chest pain for approximately 1 week. Symptoms associated with nausea and reminiscent of what she previously felt to be her esophageal disease. This morning around 3 AM was awoken from sleep with persistent chest pain, diaphoresis and nausea. Ongoing chest pain 7 out of 10. Hemodynamically stable. EKG showed sinus rhythm with ST elevation in V1 through V3 and ST depression in leads II and III. Allergies Allergy/AdvReac Type Severity Reaction Status Date / Time codeine AdvReac Severe HALLUCINATI Verified 12/05/19 17:38 ONS morphine AdvReac Severe HALLUCINATI Verified 12/05/19 17:38 ONS Home Medications Medication Instructions Recorded Confirmed Type calcium carbonate 600 mg calcium 600 mg PO DAILY 12/05/19 12/05/19 History (1,500 mg) tablet (Calcium) cholecalciferol (vitamin D3) 125 125 mcg PO DAILY 12/05/19 12/05/19 History mcg (5,000 unit) tablet (Vitamin D3) cyanocobalamin (vitamin B-12) 1,000 mcg PO DAILY 12/05/19 12/05/19 History 1,000 mcg tablet (Vitamin B-12) escitalopram oxalate 10 mg tablet 10 mg PO DAILY 12/05/19 12/05/19 History (Lexapro) famotidine 20 mg tablet (Pepcid) 20 mg PO DAILY 12/05/19 12/05/19 History fluticasone propionate 50 2 spray intranasal DAILY PRN Nasal 12/05/19 12/05/19 History mcg/actuation nasal Congestion spray,suspension (Flonase Allergy Relief) meclizine 25 mg tablet 25 mg PO QID PRN dizziness #20 tabs 12/05/19 Rx promethazine 25 mg tablet 25 mg PO Q6H PRN nausea and 12/05/19 Rx vomiting #14 tabs Patient History Medical History (Updated 01/30/22 @ 08:21 by Sarbjit Paez MD) Imbalance 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 Vascular: 2+ radial Abdomen: Soft, nontender Extremities: Well perfused, no peripheral edema Neuro: Nonfocal Psych: Alert orient x3, normal affect and mood Results & Data ([facility]) Vital Signs (Past 12 Hours) Vital Signs Temp Pulse Pulse Resp BP BP Pulse Ox 01/30/22 07:16 85 13 133/88 98 01/30/22 07:09 80 16 118/81 95 01/30/22 07:01 91 H 24 100/67 96 01/30/22 06:58 97 01/30/22 06:58 01/30/22 06:52 89 18 170/110 H 97 01/30/22 06:43 95 H 24 156/119 H 01/30/22 06:35 98.4 F 87 24 162/113 H 98 O2 Del Method O2 Flow Rate 01/30/22 07:16 Nasal Cannula 2 01/30/22 07:09 Nasal Cannula 2 01/30/22 07:01 Nasal Cannula 2 01/30/22 06:58 Nasal Cannula 2 01/30/22 06:58 Room Air 01/30/22 06:52 Room Air 01/30/22 06:43 01/30/22 06:35 Room Air PG Care Time/CCT Total # of Minutes Spent Total Time Spent with Patient: Total time spent is greater than 50% in coordination of care (as documented) at patient's floor/unit and/or counseling patient: Coding Level of Care Code 17126 Inpt Consult Level 4 Diagnoses STEMI (ST elevation myocardial infarction) I21.3
[2022-01-30 07:34] LABS: Troponin I High Sensitivity 74.3 pg/ml (0-14)
[2022-01-30] MEDS ORDERED: CLOPIDOGREL BISULFATE 300 MG TAB ONE (08:15)
[2022-01-30] MEDS ORDERED: ACETAMINOPHEN 325 MG TAB PO PRN (08:23)
[2022-01-30] MEDS ORDERED: ICU PROTOCOL FOR HYPERGLYCEMIA PRN ×2 (08:28→08:37)
--- NOTE | 2022-01-30 08:41 | Post Anesthesia Assessment ---
Date of Service January 30, 2022 Post Sedation Assessment Vital Signs Temp Pulse Pulse Resp BP BP Pulse Ox 01/30/22 07:16 85 13 133/88 98 01/30/22 07:09 80 16 118/81 95 01/30/22 07:01 91 H 24 100/67 96 01/30/22 06:58 97 01/30/22 06:58 01/30/22 06:52 89 18 170/110 H 97 01/30/22 06:43 95 H 24 156/119 H 01/30/22 06:35 98.4 F 87 24 162/113 H 98 O2 Del Method O2 Flow Rate 01/30/22 07:16 Nasal Cannula 2 01/30/22 07:09 Nasal Cannula 2 01/30/22 07:01 Nasal Cannula 2 01/30/22 06:58 Nasal Cannula 2 01/30/22 06:58 Room Air 01/30/22 06:52 Room Air 01/30/22 06:43 01/30/22 06:35 Room Air Recovery Score Activity: Moves 4 extremities Respiration: Deep Breath/Cough Circulation: +/-20% PreAnes Value Consciousness: Fully Awake Oxygen Saturation: O2 needed for >90% Discharge Sedation Level of Care: Fast Track Phase II Post Sedation Plan On clinical assessment, the patient appears to have tolerated the sedation without complications. Patient is recovering as anticipated. Patient will continue to be monitored by nursing and may be discharged when sedation discharge criteria are met per below protocol. Upon Completions of procedure up to 15 minutes continue every 5 minute vital signs and the P.A.R. score; then discharge to a Phase I or Fast Track to Phase II per the following guidelines: * Discharge Patient to appropriate Phase II area if PAR is 8 or greater or return to pre- procedure baseline. The post - procedure orders will be as directed. * If PAR score is less than 8 or not return to pre-procedure baseline then patient will follow Phase I monitoring till PAR is reached for Phase II. The Phase I may be done in procedure room or may call to secure a Phase I area. * If naloxone or flumazenil are used for reversal, hold in Phase I for continued monitoring from when last reversal dose was given for a minimum of 60 minutes or longer pending the nurse and/or physician discretion of patient condition before discharge to Phase II. Please call the Sedation Physician to re-evaluate and complete post-note for discharge to Phase II area. Do NOT discharge from procedure sedation or Phase 1 until post- sedation evaluation note is complete by procedure /sedation MD Sedation Discharge Instructions to be given to the patient at discharge to home.
--- NOTE | 2022-01-30 08:45 | Cardiac Catheterization ---
[facility] Data: Linseed Oil Order Filler Cardiac Status Clinical evaluation leading to the procedure CAD Presenation: STEMI Anginal Classification: CCS IV Diagnostic Physicians Name: Eder Paez MD Closure Device Recommendations: PCI without planned CABG Cardiac Cath Procedure Full Procedure Date January 30, 2022 Pre-Procedure Diagnosis Pre-Procedure Diagnosis: STEMI AUC Score AUC Score: 9 Post-Procedure Diagnosis Post-Procedure Diagnosis: Severe CAD, Successful PCI and Elevated Intracardiac Pressures Procedure(s) Performed Procedure(s) Performed: Coronary Angiography, Left Heart Cath, Drug Eluting Stent and IVUS Guidance Services Coordinator Eder Paez MD Tomographic Tech(s) Pool Estimated Blood Loss Estimated Blood Loss: 15 Medication(s) Medication(s): Clopidogrel, Fentanyl, Heparin, Lidocaine 1%, Nicardipine, Nitroglycerin and Versed Summary of Findings Indication: STEMI/Heart Alert Access: 6 Fr right radial artery Catheters: EBU 3.5 guide, diagnostic JR4 Findings: LM -normal caliber, angiographically normal LAD -medium caliber, calcified, 100% acute occlusion at takeoff of high D1 Circumflex -medium caliber, 40 to 50% distal stenosis. OM1, left PLB without significant disease RCA -dominant, medium caliber, no significant disease LVEDP -32 -- PCI -- Antithrombotic therapy: Heparin, clopidogrel Procedure: Left main cannulated with EBU 3.5 guide Industrial Sweeper Cleaner 50 wire passed across lesion into distal vessel Proximal to mid LAD lesion predilated with 2.5 compliant balloon Second wire (whisper) placed into second diagonal with moderate ostial disease [place] IVUS catheter placed into mid LAD Pullback revealed diffuse, calcified disease extending back to the takeoff of D1. No significant left main disease. Dilated lesion stented with 3.0 x 34 mm [place] drug-eluting stent Stent post-dilated with 3.5 noncompliant balloon IC vasodilators administered for spasm Post procedure BORIS 3 flow, stent well expanded with minimal residual stenosis. Mild to moderate residual ostial stenosis of jailed D2 but BORIS-3 flow. Arterial Closure: TR band Summary: 1. Anterior STEMI/100% occluded proximal LAD 2. Mild to moderate residual non-culprit coronary artery disease -40 to 50% distal circumflex 40 to 50% ostial jailed second diagonal after PCI 3. Elevated intracardiac filling pressure (LVEDP 32) 4. Successful PCI of proximal to mid LAD with single drug-eluting stent (3.0 x 34 mm [place]; postdilated with 3.5 NC). Recommendations: Admit to ICU for continued monitoring Loaded with clopidogrel 600 mg in Linseed Oil Order Filler Continue dual-antiplatelet therapy for at least 1 year. Trend troponins until peak, Check Echo Uptitrate beta-nida/YARITZA/MRA as BP allows High-dose statin Consult cardiac Rehab Stop smoking Diuresis as needed Hemodynamics Rest Ao:: 133/86/110 Final Ao: 129/84/104 LV: 126/32 Recommendations Recommendations: PCI without planned CABG Specimens Specimens: None Radiation Exposure (mGy) 1954 Contrast (mls) 110 Anesthesia Moderate [id number] Procedural Complication(s) None Disposition ICU I attest to the content of the Intraoperative Record and any orders documented therein. Any exceptions are noted below. [facility] Card Cath Procedure Codes Cardiac Catheterization Procedure 1: Cardiovascular Cath Procedures: 33011 Coronaries and LHC (+/-LV) Therapeutic Services & Ancillary Proc Procedure 1: Cardiovascular Tx and Anc Procedures: 46733 IV Ultrasound (Coronary or Graft) Moderate Sedation Procedure 1: Sedation/Anesthesia: 83131 Mod Sedation by the same physician;Init15 Min Child Age 5 & Up Procedure 2: Sedation/Anesthesia: 21657 Mod Sedation by the same physician; Ea [id number] Minutes Stenting Procedure 1: Cardiovascular Stent Procedures: 51973 Perc transluminal revascularization of acute sub/total occl, aMI PG Care Time/CCT Total # of Minutes Spent Total Time Spent with Patient: Total time spent is greater than 50% in coordination of care (as documented) at patient's floor/unit and/or counseling patient:
--- NOTE | 2022-01-30 08:46 | XRay Report ---
XR chest 1V portable HISTORY: 66 years-old Female Chest pain acute atypical chest pain COMPARISON: None TECHNIQUE: Portable AP view of the chest FINDINGS: Cardiomediastinal and hilar silhouettes are within normal limits. No pneumothorax, pleural effusion, airspace consolidation or overt pulmonary edema. Degenerative changes of the shoulders and spine. IMPRESSION: No acute process. ACT 112: Negative or not required by law. The above report was generated using voice recognition software. It may contain grammatical, syntax o r spelling errors. Electronically signed by: Jerome Vargas M.D. 01/30/2022 8:44 AM
--- NOTE | 2022-01-30 09:24 | Electrocardiogram Report ---
Test Reason : Blood Pressure : / mmHG Vent. Rate : 086 BPM Atrial Rate : 086 BPM P-R Int : 156 ms QRS Dur : 088 ms QT Int : 362 ms P-R-T Axes : 023 -64 070 degrees QTc Int : 433 ms Normal sinus rhythm Left anterior fascicular block Low voltage QRS Acute Anterior infarct Abnormal ECG When compared with ECG of 05-DEC-2019 17:32, Anterior infarct is now Present ST elevation now present in Anterior leads Confirmed by Kendall Nelson ([id number]) on 01/30/2022 9:24:08 AM Referred By: Confirmed By:Kendall Nelson
--- NOTE | 2022-01-30 09:37 | History & Physical Report ---
Date of Service January 30, 2022 Assessment & Plan (1) STEMI (ST elevation myocardial infarction): (2) Elevated LFTs: (3) Leucocytosis: (4) Impaired fasting glucose: Plan 66 year old female who presented with chest pain and found to have anterior STEMI and s/p emergent cardiac cath and stenting today Cardiac cath findings: LM -normal caliber, angiographically normal LAD -medium caliber, calcified, 100% acute occlusion at takeoff of high D1 Circumflex -medium caliber, 40 to 50% distal stenosis. OM1, left PLB without significant disease RCA -dominant, medium caliber, no significant disease Summary: 1. Anterior STEMI/100% occluded proximal LAD 2. Mild to moderate residual non-culprit coronary artery disease -40 to 50% distal circumflex 40 to 50% ostial jailed second diagonal after PCI 3. Elevated intracardiac filling pressure (LVEDP 32) 4. Successful PCI of proximal to mid LAD with single drug-eluting stent (3.0 x 34 mm [place]; postdilated with 3.5 NC). Anterior STEMI- s/p BLANQUITA x1 today by Dr Paez - Admitted to ICU for continued monitoring per cardiology recommendation. Consult cardio and nurse researcher - Continue DAPT (aspirin/plavix) for at least one year - started on lipitor 80 mg daily - Started on metoprolol, lisinopril- uptitrated as BP allows - Trend troponins until peak - Check echo - Cardiac rehab - Recommended quitting smoking Elevated LFTs- likely in setting of above. Recheck in am Leucocytosis- likely reactive. Recheck in am Impaired fasting glucose- possibly in setting of stress. check A1c. Monitor BG GERD- continue PPI, also in setting of DAPT. 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 Has upcoming appointment with repeat MRI. Currently asymptomatic Anxiety- lexapro was discontinued and switched to wellbutrin 3 days back. Tobacco abuse- declined nicotine patch. Recommended quitting. DVT ppx- SCDs Dispo- ICU Admission and Anticipated Discharge Date Admission Date: January 30, 2022 History of Present Illness Chief Complaint: chest pain Primary Care Provider: Magui Raygoza DO 66 year old female who presented to the ED today with complaint of 'crushing' chest pain. She was having stuttering intermittent chest pain for 1 week, associated with nausea. This morning, she woke up at 3 am with severe chest pain and was associated with nausea and diaphoresis. She came to the ED. She was hemodynamically stable. her EKG showed ST elevation in V1 thorough V3 and St depression in leads II and III. Her troponin was elevated. She was diagnosed with anterior STEMI and underwent emergent cardiac cath and found to have 100% occluded proximal LAD which was stented. Hospitalist service was consulted for admission. Patient was seen and examined at bedside. Denies any more chest pain. Had some nausea but relieved with meds. Eating breakfast. Denies any other issues. Smokes a pack in 3-4 days but denies need for nicoderm patch. Drinks occasionally. Allergies Allergy/AdvReac Type Severity Reaction Status Date / Time codeine AdvReac Severe HALLUCINATI Verified 12/05/19 17:38 ONS morphine AdvReac Severe HALLUCINATI Verified 12/05/19 17:38 ONS Home Medications Medication Instructions Recorded Confirmed Type calcium carbonate 600 mg calcium 600 mg PO DAILY 12/05/19 12/05/19 History (1,500 mg) tablet (Calcium) cholecalciferol (vitamin D3) 125 125 mcg PO DAILY 12/05/19 12/05/19 History mcg (5,000 unit) tablet (Vitamin D3) cyanocobalamin (vitamin B-12) 1,000 mcg PO DAILY 12/05/19 12/05/19 History 1,000 mcg tablet (Vitamin B-12) escitalopram oxalate 10 mg tablet 10 mg PO DAILY 12/05/19 12/05/19 History (Lexapro) famotidine 20 mg tablet (Pepcid) 20 mg PO DAILY 12/05/19 12/05/19 History fluticasone propionate 50 2 spray intranasal DAILY PRN Nasal 12/05/19 12/05/19 History mcg/actuation nasal Congestion spray,suspension (Flonase Allergy Relief) meclizine 25 mg tablet 25 mg PO QID PRN dizziness #20 tabs 12/05/19 Rx promethazine 25 mg tablet 25 mg PO Q6H PRN nausea and 12/05/19 Rx vomiting #14 tabs 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 Schwannoma Sensorineural hearing loss (SNHL) of right ear with restricted hearing of left ear Social History Smoking Status: Current every day smoker Tobacco Type: Cigarettes Second Hand Exposure: Yes; Do You Dip or Chew Tobacco: No; Tobacco Cessation Education Requested by Patient: Yes Hx Alcohol Use: Yes Alcohol type: wine Hx Substance Use: No Preferred Language: Bengali Communication Ability: Effective Mechanical Unit Repairer Required: No Beliefs That Will Affect Care: None Current Living Situation: Spouse and Family Other Information That Helps Us Care for You: No Feels Safe at Home: Yes Safety Concerns: Feels Safe At This Time Assistive Devices: None Review of Systems Review of Systems: All systems reviewed & are unremarkable except as noted in Subjective Physical Exam Physical Exam: General: Sitting comfortably in bed, not in distress, on room air HEENT: EOMI, BASSEM, MMM Chest: Clear breath sounds bilaterally, no wheezes or crackles CVS: Regular rate and rhythm, normal heart sounds, no murmur Abdomen: Soft, non tender, not distended, normal bowel sounds Neuro: Awake, alert, oriented, conversing well, non focal Extremities: No cyanosis, clubbing or edema Results & Data Results & Data ([facility]) Vital Signs (Past 12 Hours) Vital Signs Temp Pulse Pulse Resp BP BP Pulse Ox 01/30/22 09:01 79 19 98 01/30/22 09:01 124/79 01/30/22 09:00 81 20 94 01/30/22 08:52 70 21 100 01/30/22 08:52 111/82 01/30/22 08:50 75 19 100 01/30/22 08:40 76 21 100 01/30/22 08:32 83 22 97 01/30/22 08:32 127/87 01/30/22 08:30 86 19 98 01/30/22 08:28 97 01/30/22 07:15 74 11 L 97 01/30/22 07:15 133/88 01/30/22 07:10 82 26 H 95 01/30/22 07:10 114/80 01/30/22 07:09 80 23 95 01/30/22 07:09 118/81 01/30/22 07:00 100 H 13 95 01/30/22 07:00 100/67 01/30/22 06:53 129/85 01/30/22 06:53 94 H 30 H 97 01/30/22 06:50 96 H 19 97 01/30/22 06:48 170/110 H 01/30/22 06:48 90 20 100 01/30/22 06:46 146/110 H 01/30/22 06:46 92 H 20 01/30/22 07:16 85 13 133/88 98 01/30/22 07:09 80 16 118/81 95 01/30/22 07:01 91 H 24 100/67 96 01/30/22 06:58 97 01/30/22 06:58 01/30/22 06:52 89 18 170/110 H 97 01/30/22 06:43 95 H 24 156/119 H 01/30/22 06:35 36.9 C 87 24 162/113 H 98 O2 Del Method O2 Flow Rate 01/30/22 09:01 01/30/22 09:01 01/30/22 09:00 01/30/22 08:52 01/30/22 08:52 01/30/22 08:50 01/30/22 08:40 01/30/22 08:32 01/30/22 08:32 01/30/22 08:30 01/30/22 08:28 01/30/22 07:15 01/30/22 07:15 01/30/22 07:10 01/30/22 07:10 01/30/22 07:09 01/30/22 07:09 01/30/22 07:00 01/30/22 07:00 01/30/22 06:53 01/30/22 06:53 01/30/22 06:50 01/30/22 06:48 01/30/22 06:48 01/30/22 06:46 01/30/22 06:46 01/30/22 07:16 Nasal Cannula 2 01/30/22 07:09 Nasal Cannula 2 01/30/22 07:01 Nasal Cannula 2 01/30/22 06:58 Nasal Cannula 2 01/30/22 06:58 Room Air 01/30/22 06:52 Room Air 01/30/22 06:43 01/30/22 06:35 Room Air Laboratory Results Short CBC 01/30/22 Range/Units 06:38 WBC 11.59 H (4.8-10.8) K/ul Hgb 16.4 H (12.0-16.0) g/dl Hct 50.5 H (34.1-44.9) % Plt Count 295 (130-400) K/uL BMP 01/30/22 06:38 Sodium 139 Potassium 4.2 Chloride 104 Carbon Dioxide 26 BUN 15 Creatinine 1.10 Glucose 189 H Calcium 10.0 Cardiac Enzymes 01/30/22 Range/Units 06:38 Total Creatine Kinase 107 (26-192) U/L Liver Function 01/30/22 Range/Units 06:38 Total Bilirubin 0.4 (0.2-1.0) mg/dl AST 54 H (13-39) U/L ALT 106 H (7-52) U/L Alkaline Phosphatase 128 H (34-104) U/L Albumin 4.6 (3.4-5.0) gm/dl Diagnostic Findings Chest X-Ray 01/30/22 06:50 XR chest 1V portable HISTORY: 66 years-old Female Chest pain acute atypical chest pain COMPARISON: None TECHNIQUE: Portable AP view of the chest FINDINGS: Cardiomediastinal and hilar silhouettes are within normal limits. No pneumothorax, pleural effusion, airspace consolidation or overt pulmonary edema. Degenerative changes of the shoulders and spine. IMPRESSION: No acute process. ACT 112: Negative or not required by law. The above report was generated using voice recognition software. It may contain grammatical, syntax or spelling errors. Electronically signed by: Jerome Vargas M.D. 01/30/2022 8:44 AM Code Status & VTE Plan VTE Prophylaxis Plan VTE Prophylaxis will be ordered: Yes
[2022-01-30] MEDS: ATORVASTATIN 40 MG TAB PO SCH (09:53)
[2022-01-30] MEDS: CLOPIDOGREL BISULFATE 75 MG TAB PO SCH (09:53)
[2022-01-30] MEDS: PANTOprazole 40 MG TAB PO SCH (09:53)
[2022-01-30] MEDS: ASPIRIN 81 MG ECTAB PO SCH (09:54)
[2022-01-30] MEDS: METOPROLOL TARTRATE 25 MG TAB PO SCH ×2 (09:54→20:59)
[2022-01-30] MEDS ORDERED: MoRPHine SULFATE 2 MG/ML CARP IV ONE (11:21)
[2022-01-30] MEDS ORDERED: MoRPHine SULFATE 2 MG/ML CARP ONE (11:21)
--- NOTE | 2022-01-30 11:51 | Critical Care Consultation ---
Date of Consultation January 30, 2022 Assessment & Plan (1) STEMI (ST elevation myocardial infarction): Reason Critically Ill: 66-year-old female with ST elevation AL PLAN: Neuro: Acoustic neuroma -Follows with [facility] Resp: Nicotine dependence -Smoking cessation counseling CV: ST elevation AL Coronary artery disease LAD -high intensity statin, YARITZA, aspirin, Plavix, GI/Nutrition: Transaminitis -acute hepatitis panel in a.m. labs -Suspect nonalcoholic steatohepatitis Obesity: BMI 33 Heme: Leukocytosis -Likely reactionary DVT prophylaxis: Patient ambulatory Endocrine: ICU hyperglycemia protocol Vascular access: Peripheral IVs Code Status: Full code Disposition: ICU (2) Left acoustic neuroma: (3) Elevated LFTs: (4) Impaired fasting glucose: (5) Tobacco dependence: History of Present Illness Reason for Consultation: ST elevation AL Attending Physician: Yordy Maldonado MD History of Present Illness Patient is a 66-year-old female with a past medical history of left acoustic neuroma and tobacco dependence who presented with severe chest pain that woke her up at approximately 3 AM that was 20 out of 10. She was diagnosed with an acute ST elevation AL in the emergency department taken emergently to the [facility] and found to have 100% occluded LAD. After the procedure her chest pain subsided to 5 out of 10. While eating she has had some occasional worsening of the chest pain, she was initially given nitroglycerin while in the ICU with mild improvement and with 2 of morphine her pain went to 2 out of 10. Of note she is listed morphine and allergy which previously when given morphine she had some altered mental status not a true allergy in the sense of itching hives or pruritus. Patient requested to be given the morphine. Allergies Allergy/AdvReac Type Severity Reaction Status Date / Time codeine AdvReac Severe HALLUCINATI Verified 12/05/19 17:38 ONS morphine AdvReac Severe HALLUCINATI Verified 12/05/19 17:38 ONS Home Medications Medication Instructions Recorded Confirmed Type calcium carbonate 600 mg calcium 600 mg PO DAILY 12/05/19 12/05/19 History (1,500 mg) tablet (Calcium) cholecalciferol (vitamin D3) 125 125 mcg PO DAILY 12/05/19 12/05/19 History mcg (5,000 unit) tablet (Vitamin D3) cyanocobalamin (vitamin B-12) 1,000 mcg PO DAILY 12/05/19 12/05/19 History 1,000 mcg tablet (Vitamin B-12) famotidine 20 mg tablet (Pepcid) 20 mg PO DAILY 12/05/19 12/05/19 History fluticasone propionate 50 2 spray intranasal DAILY PRN Nasal 12/05/19 12/05/19 History mcg/actuation nasal Congestion spray,suspension (Flonase Allergy Relief) meclizine 25 mg tablet 25 mg PO QID PRN dizziness #20 tabs 12/05/19 Rx promethazine 25 mg tablet 25 mg PO Q6H PRN nausea and 12/05/19 Rx vomiting #14 tabs bupropion HCl 150 mg 24 hr tablet, 150 mg PO 01/30/22 History extended release Patient History Medical History Imbalance 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 Schwannoma Sensorineural hearing loss (SNHL) of right ear with restricted hearing of left ear Social History Smoking Status: Current every day smoker Tobacco Type: Cigarettes Second Hand Exposure: Yes; Do You Dip or Chew Tobacco: No; Tobacco Cessation Education Requested by Patient: Yes Hx Alcohol Use: Yes Alcohol type: wine Hx Substance Use: No Preferred Language: Citizen Of [place] Communication Ability: Effective Chemistry Teacher Required: No Beliefs That Will Affect Care: None Current Living Situation: Spouse and Family Other Information That Helps Us Care for You: No Feels Safe at Home: Yes Safety Concerns: Feels Safe At This Time Assistive Devices: None Review of Systems Review of Systems: As described in the HPI Physical Exam Physical Exam: General: Alert. nontoxic. Skin: Warm, dry, Head: Atraumatic Ears, nose, mouth and throat: airway patent Cardiovascular: Normal peripheral perfusion Respiratory: no respiratory distress Gastrointestinal: Non distended Musculoskeletal: No deformity Results & Data Results & Data ([facility]) Vital Signs (Past 12 Hours) Vital Signs Temp Pulse Pulse Pulse Resp BP BP 01/30/22 11:20 75 20 01/30/22 11:16 78 20 01/30/22 11:16 115/78 01/30/22 11:10 81 24 01/30/22 11:00 90 13 01/30/22 10:52 109/85 01/30/22 10:52 77 22 01/30/22 10:50 79 26 H 01/30/22 10:40 76 14 01/30/22 10:31 122/89 01/30/22 10:31 78 16 01/30/22 10:30 83 23 01/30/22 10:20 79 16 01/30/22 10:10 86 17 01/30/22 10:00 81 23 01/30/22 09:50 84 22 01/30/22 09:40 87 22 01/30/22 09:30 83 23 01/30/22 09:20 81 22 01/30/22 09:10 81 26 H 01/30/22 08:31 85 01/30/22 09:01 79 19 01/30/22 09:01 124/79 01/30/22 09:00 81 20 01/30/22 08:52 70 21 01/30/22 08:52 111/82 01/30/22 08:50 75 19 01/30/22 08:40 76 21 01/30/22 08:32 83 22 01/30/22 08:32 127/87 01/30/22 08:30 86 19 01/30/22 08:28 01/30/22 07:15 74 11 L 01/30/22 07:15 133/88 01/30/22 07:10 82 26 H 01/30/22 07:10 114/80 01/30/22 07:09 80 23 01/30/22 07:09 118/81 01/30/22 07:00 100 H 13 01/30/22 07:00 100/67 01/30/22 06:53 129/85 01/30/22 06:53 94 H 30 H 01/30/22 06:50 96 H 19 01/30/22 06:48 170/110 H 01/30/22 06:48 90 20 01/30/22 06:46 146/110 H 01/30/22 06:46 92 H 20 01/30/22 09:13 36.5 C 83 16 127/87 01/30/22 07:16 85 13 01/30/22 07:09 80 16 01/30/22 07:01 91 H 24 01/30/22 06:58 01/30/22 06:58 01/30/22 06:52 89 18 01/30/22 06:43 95 H 24 156/119 H 01/30/22 06:35 36.9 C 87 24 162/113 H BP Pulse Ox O2 Del Method O2 Flow Rate 01/30/22 11:20 96 01/30/22 11:16 96 01/30/22 11:16 01/30/22 11:10 97 01/30/22 11:00 93 01/30/22 10:52 01/30/22 10:52 96 01/30/22 10:50 97 01/30/22 10:40 98 01/30/22 10:31 01/30/22 10:31 97 01/30/22 10:30 97 01/30/22 10:20 97 01/30/22 10:10 93 01/30/22 10:00 96 01/30/22 09:50 95 01/30/22 09:40 94 01/30/22 09:30 96 01/30/22 09:20 95 01/30/22 09:10 96 01/30/22 08:31 01/30/22 09:01 98 01/30/22 09:01 01/30/22 09:00 94 01/30/22 08:52 100 01/30/22 08:52 01/30/22 08:50 100 01/30/22 08:40 100 01/30/22 08:32 97 01/30/22 08:32 01/30/22 08:30 98 01/30/22 08:28 97 01/30/22 07:15 97 01/30/22 07:15 01/30/22 07:10 95 01/30/22 07:10 01/30/22 07:09 95 01/30/22 07:09 01/30/22 07:00 95 01/30/22 07:00 01/30/22 06:53 01/30/22 06:53 97 01/30/22 06:50 97 01/30/22 06:48 01/30/22 06:48 100 01/30/22 06:46 01/30/22 06:46 01/30/22 09:13 97 Room Air 01/30/22 07:16 133/88 98 Nasal Cannula 2 01/30/22 07:09 118/81 95 Nasal Cannula 2 01/30/22 07:01 100/67 96 Nasal Cannula 2 01/30/22 06:58 97 Nasal Cannula 2 01/30/22 06:58 Room Air 01/30/22 06:52 170/110 H 97 Room Air 01/30/22 06:43 01/30/22 06:35 98 Room Air Critical Care Results & Data Vital Signs (Past 12 Hours) Vital Signs Temp Pulse Pulse Pulse Resp BP BP 01/30/22 11:20 75 20 01/30/22 11:16 78 20 01/30/22 11:16 115/78 01/30/22 11:10 81 24 01/30/22 11:00 90 13 01/30/22 10:52 109/85 01/30/22 10:52 77 22 01/30/22 10:50 79 26 H 01/30/22 10:40 76 14 01/30/22 10:31 122/89 01/30/22 10:31 78 16 01/30/22 10:30 83 23 01/30/22 10:20 79 16 01/30/22 10:10 86 17 01/30/22 10:00 81 23 01/30/22 09:50 84 22 01/30/22 09:40 87 22 01/30/22 09:30 83 23 01/30/22 09:20 81 22 01/30/22 09:10 81 26 H 01/30/22 11:44 01/30/22 08:31 85 01/30/22 09:01 79 19 01/30/22 09:01 124/79 01/30/22 09:00 81 20 01/30/22 08:52 70 21 01/30/22 08:52 111/82 01/30/22 08:50 75 19 01/30/22 08:40 76 21 01/30/22 08:32 83 22 01/30/22 08:32 127/87 01/30/22 08:30 86 19 01/30/22 08:28 01/30/22 07:15 74 11 L 01/30/22 07:15 133/88 01/30/22 07:10 82 26 H 01/30/22 07:10 114/80 01/30/22 07:09 80 23 01/30/22 07:09 118/81 01/30/22 07:00 100 H 13 01/30/22 07:00 100/67 08/07/22 06:53 129/85 01/30/22 06:53 94 H 30 H 01/30/22 06:50 96 H 19 01/30/22 06:48 170/110 H 01/30/22 06:48 90 20 01/30/22 06:46 146/110 H 01/30/22 06:46 92 H 20 01/30/22 09:13 36.5 C 83 16 127/87 01/30/22 07:16 85 13 01/30/22 07:09 80 16 01/30/22 07:01 91 H 24 01/30/22 06:58 01/30/22 06:58 01/30/22 06:52 89 18 01/30/22 06:43 95 H 24 156/119 H 01/30/22 06:35 36.9 C 87 24 162/113 H BP Pulse Ox O2 Del Method O2 Flow Rate 01/30/22 11:20 96 01/30/22 11:16 96 01/30/22 11:16 01/30/22 11:10 97 01/30/22 11:00 93 01/30/22 10:52 01/30/22 10:52 96 01/30/22 10:50 97 01/30/22 10:40 98 01/30/22 10:31 01/30/22 10:31 97 01/30/22 10:30 97 01/30/22 10:20 97 01/30/22 10:10 93 01/30/22 10:00 96 01/30/22 09:50 95 01/30/22 09:40 94 01/30/22 09:30 96 01/30/22 09:20 95 01/30/22 09:10 96 01/30/22 11:44 Room Air 01/30/22 08:31 01/30/22 09:01 98 01/30/22 09:01 01/30/22 09:00 94 01/30/22 08:52 100 01/30/22 08:52 01/30/22 08:50 100 01/30/22 08:40 100 01/30/22 08:32 97 01/30/22 08:32 01/30/22 08:30 98 01/30/22 08:28 97 01/30/22 07:15 97 01/30/22 07:15 01/30/22 07:10 95 01/30/22 07:10 01/30/22 07:09 95 01/30/22 07:09 01/30/22 07:00 95 01/30/22 07:00 01/30/22 06:53 01/30/22 06:53 97 01/30/22 06:50 97 01/30/22 06:48 01/30/22 06:48 100 01/30/22 06:46 01/30/22 06:46 01/30/22 09:13 97 Room Air 01/30/22 07:16 133/88 98 Nasal Cannula 2 01/30/22 07:09 118/81 95 Nasal Cannula 2 01/30/22 07:01 100/67 96 Nasal Cannula 2 01/30/22 06:58 97 Nasal Cannula 2 01/30/22 06:58 Room Air 01/30/22 06:52 170/110 H 97 Room Air 01/30/22 06:43 01/30/22 06:35 98 Room Air Lab & Micro Results (Past 24 Hours) RBC 5.45 M/uL (3.93-5.22) H 01/30/22 WBC 11.59 K/ul (4.8-10.8) H 01/30/22 Hgb 16.4 g/dl (12.0-16.0) H 01/30/22 Hct 50.5 % (34.1-44.9) H 01/30/22 MCV 92.7 fL (80.0-100.0) 01/30/22 MCH 30.1 pg (25.0-34.0) 01/30/22 MCHC 32.5 g/dL (32.0-36.0) 01/30/22 RDW Standard Deviation 43.8 fL (36.4-46.3) 01/30/22 RDW Coefficient of Variation 13.0 % (11.5-14.5) 01/30/22 Plt Count 295 K/uL (130-400) 01/30/22 MPV 9.3 fL (9.4-12.3) L 01/30/22 Neutrophils (%) (Auto) 59.3 % 01/30/22 Lymphocytes (%) (Auto) 29.6 % 01/30/22 Monocytes # (Auto) 0.70 K/uL (0.24-0.82) 01/30/22 Eosinophils # (Auto) 0.25 K/uL (0-0.50) 01/30/22 Immature Granulocyte % (Auto) 2.2 % 01/30/22 Neutrophils # (Auto) 6.88 K/uL (1.4-6.5) H 01/30/22 Lymphocytes # (Auto) 3.43 K/uL (1.2-3.4) H 01/30/22 Monocytes # (Auto) 0.70 K/uL (0.24-0.82) 01/30/22 Eosinophils # (Auto) 0.25 K/uL (0-0.50) 01/30/22 Basophils # (Auto) 0.08 K/uL (0-0.2) 01/30/22 Immature Granulocyte # (Auto) 0.25 K/uL (0.00-0.02) H 01/30 Na 139 mmol/L (136-145) 01/30/22 K 4.2 mmol/L (3.5-5.1) 01/30/22 Cl 104 mmol/L (98-107) 01/30/22 CO2 26 mmol/L (21-32) 01/30/22 Anion Gap 9 (3-11) 01/30/22 BUN 15 mg/dl (6-23) 01/30/22 Creatinine 1.10 mg/dl (0.6-1.2) 01/30/22 Estimated GFR ( Amer) 61.4 ml/min 01/30/22 Estimated GFR (Non-Af Amer) 53.0 ml/min 01/30/22 BUN/Creatinine Ratio 13.6 (10-20) 01/30/22 Glu 189 mg/dl (70-99(Fasting)) H 01/30/22 Ca 10.0 mg/dl (8.5-10.1) 01/30/22 Total Bilirubin 0.4 mg/dl (0.2-1.0) 01/30/22 AST 54 U/L (13-39) H 01/30/22 ALT 106 U/L (7-52) H 01/30/22 Alkaline Phosphatase 128 U/L (34-104) H 01/30/22 TP 7.9 gm/dl (6.0-8.3) 01/30/22 Albumin 4.6 gm/dl (3.4-5.0) 01/30/22 Globulin 3.3 gm/dl (2.5-4.0) 01/30/22 Albumin/Globulin Ratio 1.4 (0.9-2) 01/30/22 Mg 2.0 mg/dl (1.7-2.4) 01/30/22 06:38 Calcium Level 10.0 mg/dl (8.5-10.1) 01/30/22 06:38 Prothromb Time International Ratio 1.0 (0.9-1.1) 01/30/22 06:3 8 Diagnostic Findings (Past 24 Hours) Chest X-Ray 01/30/22 06:50 XR chest 1V portable HISTORY: 66 years-old Female Chest pain acute atypical chest pain COMPARISON: None TECHNIQUE: Portable AP view of the chest FINDINGS: Cardiomediastinal and hilar silhouettes are within normal limits. No pne umothorax, pleural effusion, airspace consolidation or overt pulmonary edema. Degenerative changes of the shoulders and spine. IMPRESSION: No acute process. ACT 112: Negative or not required by law. The above report was generated using voice recognition software. It may contain grammatical, syntax or spelling errors. Electronically signed by: Jerome Vargas M.D. 01/30/2022 8:44 AM I & O Totals 24 Hours 01/29/22 01/30/22 01/31/22 06:59 06:59 06:59 Intake Total 600 / 600 Output Total 450 / 450 Balance 150 / 150 Cumulative 01/30/22 06:28 thru 01/30/22 10:00 Intake Total 600 Output Total 450 Balance 150 RT Ventilator Mngmt (Last Documented) Ventilator Ordered Settings Respiratory Rate 20 01/30/22 11:20 Ventilator - PT Measurements Respiratory Rate 20 Coding Level of Care Code 23892 Inpt Consult Level 4 Diagnoses STEMI (ST elevation myocardial infarction) I21.09 Involved coronary artery: other anterior wall coronary artery Left acoustic neuroma D33.3 Elevated LFTs R79.89 Impaired fasting glucose R73.01 Tobacco dependence F17.200 (1) STEMI (ST elevation myocardial infarction) Involved coronary artery: other anterior wall coronary artery Qualified Code(s): I21.09 - ST elevation (STEMI) myocardial infarction involving other coronary artery of anterior wall
--- NOTE | 2022-01-30 12:46 | Electrocardiogram Report ---
Test Reason : Blood Pressure : / mmHG Vent. Rate : 076 BPM Atrial Rate : 076 BPM P-R Int : 160 ms QRS Dur : 084 ms QT Int : 396 ms P-R-T Axes : 044 -50 082 degrees QTc Int : 445 ms Normal sinus rhythm Left axis deviation Low voltage QRS Recent Anterior infarct (cited on or before 30-JAN-2022) Abnormal ECG When compared with ECG of 30-JAN-2022 07:08, T wave inversion now evident in Anterior leads ST elevation in Anterior leads no longer present Confirmed by Kendall Nelson ([id number]) on 01/30/2022 12:58:08 PM Referred By: REFERRED SELF Confirmed By:Kendall Nelson
[2022-01-30] MEDS ORDERED: PERFLUTREN LIPID MICROSPHERE (DEFINITY) IV ONE (14:16)
[2022-01-30] MEDS ORDERED: ALUMINUM/MAGNESIUM/SIMETH (MAALOX MAX) 30 ML UDC PO STA (17:31)
[2022-01-30] MEDS: FAMOTIDINE 20 MG in SYRINGE 3 ML IV SCH (18:24)
[2022-01-30] MEDS ORDERED: POLYETHYLENE (MIRALAX) 17 GM PACK ONE (21:34)
[2022-01-31] MEDS ORDERED: LORazepam 0.5 MG TAB PO STA (03:14)
[2022-01-31 04:41] LABS: Basophils # (auto) 0.04 K/uL (0-0.2); Basophils % (auto) 0.3 %; Eosinophils # (auto) 0.15 K/uL (0-0.50); Eosinophils % (auto) 1.3 %; Hematocrit (blood only) 41.9 % (34.1-44.9); Immature Granulocytes % (auto) 1.7 %; Lymphocytes # (auto) 2.98 K/uL (1.2-3.4); Lymphocytes % (auto) 25.1 %; Mean Corpuscular Hemoglobin 30.6 pg (25.0-34.0); Mean Corpuscular Hgb Conc 33.4 g/dL (32.0-36.0); Mean Corpuscular Volume 91.7 fL (80.0-100.0); Mean Platelet Volume 9.4 fL (9.4-12.3); Monocytes # (auto) 0.76 K/uL (0.24-0.82); Monocytes % (auto) 6.4 %; Neutrophils # (auto) 7.72 K/uL (1.4-6.5); Neutrophils % (auto) 65.2 %; Platelet Count 217 K/uL (130-400); RDW Standard Deviation 43.7 fL (36.4-46.3); Red Blood Count 4.57 M/uL (3.93-5.22); White Blood Count 11.85 K/ul (4.8-10.8)
[2022-01-31 05:07] LABS: BUN Creatinine Ratio 15.4 (10-20); Calcium 8.9 mg/dl (8.5-10.1); Chol HDL Ratio 6.2 (0-5); Creatinine Clr Calc Pharmacy 83.7 ml/min; Est GFR (African American) 93.1 ml/min; Est GFR (Non-African American) 80.3 ml/min; Magnesium 2.2 mg/dl (1.7-2.4); Phosphorus 2.6 mg/dl (2.5-4.9); Potassium 4.3 mmol/L (3.5-5.1)
[2022-01-31] MEDS ORDERED: PHARMACY GLYCEMIC MGMT CONSULT PRN (05:18)
[2022-01-31 05:31] LABS: Troponin I High Sensitivity 29971.6 pg/ml (0-14)
[2022-01-31] MEDS ORDERED: GLUCAGON FOR INJ 1 MG VIAL SQ PRN (05:45)
[2022-01-31] MEDS ORDERED: CARBOHYDRATES FOR HYPOGLYCEMIA PO PRN (05:45)
[2022-01-31] MEDS ORDERED: GLUCOSE 10 TAB/TUBE PO PRN (05:45)
[2022-01-31] MEDS ORDERED: GLUCOSE 40% GEL 15 GM TUBE PO PRN (05:45)
[2022-01-31] MEDS ORDERED: DEXTROSE 50% 50 ML SYRINGE IV PRN (05:45)
[2022-01-31] MEDS: INSULIN ASPART PER UNIT SC SCH ×4 (07:57→20:14)
[2022-01-31] MEDS: ASPIRIN 81 MG ECTAB PO SCH (07:58)
[2022-01-31] MEDS: ATORVASTATIN 40 MG TAB PO SCH (07:58)
[2022-01-31] MEDS: lisinopril 5 MG TAB PO SCH (07:59)
[2022-01-31] MEDS: METOPROLOL TARTRATE 25 MG TAB PO SCH ×2 (07:59→20:10)
[2022-01-31] MEDS: buPROPion XL 150 MG TABCR PO SCH (07:59)
[2022-01-31] MEDS: PANTOprazole 40 MG TAB PO SCH (07:59)
[2022-01-31] MEDS: CLOPIDOGREL BISULFATE 75 MG TAB PO SCH (07:59)
[2022-01-31] MEDS: POLYETHYLENE (MIRALAX) 17 GM PACK PO SCH (07:59)
--- NOTE | 2022-01-31 07:59 | Critical Care Progress Note ---
Date of Service January 31, 2022 Assessment & Plan (1) STEMI (ST elevation myocardial infarction): (2) Left acoustic neuroma: (3) Tobacco dependence: Plan Impression: 66-year-old female status postacute anterior ST elevation myocardial infarction status post drug-eluting stent. Recommendations: 1. Acute coronary syndrome: Continue aspirin Plavix. Troponin is peaked and is downtrending. Will need cardiac rehab as an outpatient. 2. Hyperlipidemia: Continue Lipitor 3. Hypertension: Continue metoprolol and lisinopril. 4. Acoustic neuroma: Continue clinical observation. 5. Leukocytosis: Suspect reactive. No indication for antimicrobial agents currently. 6. Glucose intolerance: Hemoglobin A1c pending. Continue sliding scale insulin. Patient appears to be doing well clinically. She stable to transfer out of the intensive care unit to telemetry status. Critical care services will sign off. Feel free to contact us if we can be of additional assistance Admission and Anticipated Discharge Date Admission Date: January 30, 2022 Subjective Patient seen and examined. EMR reviewed. 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 Patient is doing well this morning. She did receive a dose of Ativan last night for anxiety. She has had some intermittent chest tightness but has had no acute EKG changes overnight. She is tolerating a diet this morning. Review of Systems Review of Systems: All systems reviewed & are unremarkable except as noted in Subjective Physical Exam Constitutional: WD/WN, vitals as above Neck: trachea midline, no thyromegaly Respiratory: normal respiratory effort, lungs clear to auscultation Cardiovascular: RRR, no murmur, no edema Gastrointestinal (Abdomen): normal bowel sounds, soft, nontender, no hepatosplenomegaly Musculoskeletal: Extremities: extremities normal to inspection Skin: no rashes, warm and dry Neurologic: Nonfocal exam Lymphatic: no cervical lymphadenopathy Results & Data Results & Data ([facility]) Vital Signs (Past 12 Hours) Vital Signs Temp Pulse Resp BP Pulse Ox O2 Del Method 01/31/22 06:30 70 20 94 01/31/22 06:01 65 14 96 01/31/22 06:01 83/65 L 01/31/22 06:00 63 14 92 01/31/22 05:30 66 15 96 01/31/22 05:00 68 19 93 01/31/22 05:00 115/80 01/31/22 04:00 68 18 96 08/08/22 04:00 104/63 01/31/22 03:40 75 23 97 01/31/22 03:30 74 17 97 01/31/22 03:20 36.9 C 72 14 98 01/31/22 03:10 74 22 98 01/31/22 03:01 78 17 98 01/31/22 03:01 96/83 L 01/31/22 03:00 73 23 97 01/31/22 02:56 102/63 01/31/22 02:56 78 22 99 01/31/22 02:50 75 21 97 01/31/22 02:40 86 25 H 85 L 01/31/22 02:10 77 17 97 01/31/22 02:00 66 24 95 01/31/22 02:00 107/71 01/31/22 01:00 75 26 H 01/31/22 01:00 104/73 01/31/22 00:00 66 20 94 01/31/22 00:00 95/63 L 01/30/22 23:00 82 20 95 Room Air 01/30/22 23:00 105/72 01/31/22 00:00 68 01/30/22 22:01 113/90 01/30/22 22:01 83 23 95 01/30/22 22:00 83 21 96 01/30/22 21:00 86 24 96 01/30/22 21:00 37.1 C 119/88 01/30/22 20:00 80 20 94 01/30/22 20:00 106/70 Critical Care Results & Data Vital Signs (Past 12 Hours) Vital Signs Temp Pulse Resp BP Pulse Ox O2 Del Method 01/31/22 06:30 70 20 94 01/31/22 06:01 65 14 96 01/31/22 06:01 83/65 L 01/31/22 06:00 63 14 92 01/31/22 05:30 66 15 96 01/31/22 05:00 68 19 93 01/31/22 05:00 115/80 01/31/22 04:00 68 18 96 01/31/22 04:00 104/63 01/31/22 03:40 75 23 97 01/31/22 03:30 74 17 97 01/31/22 03:20 36.9 C 72 14 98 01/31/22 03:10 74 22 98 01/31/22 03:01 78 17 98 01/31/22 03:01 96/83 L 01/31/22 03:00 73 23 97 01/31/22 02:56 102/63 01/31/22 02:56 78 22 99 01/31/22 02:50 75 21 97 01/31/22 02:40 86 25 H 85 L 01/31/22 02:10 77 17 97 01/31/22 02:00 66 24 95 01/31/22 02:00 107/71 01/31/22 01:00 75 26 H 01/31/22 01:00 104/73 01/31/22 00:00 66 20 94 01/31/22 00:00 95/63 L 01/30/22 23:00 82 20 95 Room Air 01/30/22 23:00 105/72 01/31/22 00:00 68 01/30/22 22:01 113/90 01/30/22 22:01 83 23 95 01/30/22 22:00 83 21 96 01/30/22 21:00 86 24 96 01/30/22 21:00 37.1 C 119/88 01/30/22 20:00 80 20 94 01/30/22 20:00 106/70 Lab & Micro Results (Past 24 Hours) RBC 4.57 M/uL (3.93-5.22) 01/31/22 WBC 11.85 K/ul (4.8-10.8) H 01/31/22 Hgb 14.0 g/dl (12.0-16.0) 01/31/22 Hct 41.9 % (34.1-44.9) 01/31/22 MCV 91.7 fL (80.0-100.0) 01/31/22 MCH 30.6 pg (25.0-34.0) 01/31/22 MCHC 33.4 g/dL (32.0-36.0) 01/31/22 RDW Standard Deviation 43.7 fL (36.4-46.3) 01/31/22 RDW Coefficient of Variation 13.0 % (11.5-14.5) 01/31/22 Plt Count 217 K/uL (130-400) 01/31/22 MPV 9.4 fL (9.4-12.3) 01/31/22 Neutrophils (%) (Auto) 65.2 % 01/31/22 Lymphocytes (%) (Auto) 25.1 % 01/31/22 Monocytes # (Auto) 0.76 K/uL (0.24-0.82) 01/31/22 Eosinophils # (Auto) 0.15 K/uL (0-0.50) 01/31/22 Immature Granulocyte % (Auto) 1.7 % 01/31/22 Neutrophils # (Auto) 7.72 K/uL (1.4-6.5) H 01/31/22 Lymphocytes # (Auto) 2.98 K/uL (1.2-3.4) 01/31/22 Monocytes # (Auto) 0.76 K/uL (0.24-0.82) 01/31/22 Eosinophils # (Auto) 0.15 K/uL (0-0.50) 01/31/22 Basophils # (Auto) 0.04 K/uL (0-0.2) 01/31/22 Immature Granulocyte # (Auto) 0.20 K/uL (0.00-0.02) H 01/31 Na 137 mmol/L (136-145) 01/31/22 K 4.3 mmol/L (3.5-5.1) 01/31/22 Cl 105 mmol/L (98-107) 01/31/22 CO2 25 mmol/L (21-32) 01/31/22 Anion Gap 7 (3-11) 01/31/22 BUN 12 mg/dl (6-23) 01/31/22 Creatinine 0.78 mg/dl (0.6-1.2) 01/31/22 Estimated GFR ( Amer) 93.1 ml/min 01/31/22 Estimated GFR (Non-Af Amer) 80.3 ml/min 01/31/22 BUN/Creatinine Ratio 15.4 (10-20) 01/31/22 Glu 173 mg/dl (70-99(Fasting)) H 01/31/22 Ca 8.9 mg/dl (8.5-10.1) 01/31/22 Phosphorus Level 2.6 mg/dl (2.5-4.9) 01/31/22 Mg 2.2 mg/dl (1.7-2.4) 01/31/22 04:28 Calcium Level 8.9 mg/dl (8.5-10.1) 01/31/22 04:28 Diagnostic Findings (Past 24 Hours) Chest X-Ray 01/30/22 06:50 XR chest 1V portable HISTORY: 66 years-old Female Chest pain acute atypical chest pain COMPARISON: None TECHNIQUE: Portable AP view of the chest FINDINGS: Cardiomediastinal and hilar silhouettes are within normal limits. No pneumothorax, pleural effusion, airspace consolidation or overt pulmonary edema. Degenerative changes of the shoulders and spine. IMPRESSION: No acute process. ACT 112: Negative or not required by law. The above report was generated using voice recognition software. It may contain grammatical, syntax or spelling errors. Electronically signed by: Jerome Vargas M.D. 01/30/2022 8:44 AM I & O Totals 24 Hours 01/30/22 01/31/22 02/01/22 06:59 06:59 06:59 Intake Total 1840 / 1840 Output Total 2100 / 2100 Balance -260 / -260 Cumulative 01/30/22 06:28 thru 01/31/22 05:55 Intake Total 1840 Output Total 2100 Balance -260 RT Ventilator Mngmt (Last Documented) Ventilator Ordered Settings Respiratory Rate 20 01/31/22 06:30 Ventilator - PT Measurements Respiratory Rate 20 Coding Level of Care Code 75900 Subseq Hosp Care Lvl 2 Diagnoses STEMI (ST elevation myocardial infarction) I21.09 Involved coronary artery: other anterior wall coronary artery Left acoustic neuroma D33.3 Tobacco dependence F17.200 (1) STEMI (ST elevation myocardial infarction) Involved coronary artery: other anterior wall coronary artery Qualified Code(s): I21.09 - ST elevation (STEMI) myocardial infarction involving other coronary artery of anterior wall
[2022-01-31] MEDS: FAMOTIDINE 20 MG in SYRINGE 3 ML IV SCH (08:00)
--- NOTE | 2022-01-31 08:37 | XCELERA ---
[id number]
[2022-01-31 08:43] LABS: Estimated Average Glucose 146 mg/dl; Hemoglobin A1C 6.7 % (4.5-5.6)
--- NOTE | 2022-01-31 08:43 | Cardiology Progress Note ---
Date of Service January 31, 2022 Assessment & Plan (1) CAD (coronary artery disease): Plan: Anterior STEMIstatus post PCI with BLANQUITA to proximal to mid LAD Mild to moderate nonculprit CAD40% distal circumflex, 40% ostial jailed D2 2. Ischemic cardiomyopathyEF 35 to 40%, apical akinesis 3. Dyslipidemia 4. Vestibular schwannomahistory of prior ICH 5. Tobacco abuse 6. Borderline DM2 - A1c 6.7 Chest pain-free this morning. Troponin downtrending. Electrically stable on telemetry No signs of heart failure on exam No access site complications continue DAPT with aspirin, clopidogrel Continue current metoprolol, lisinopril as BP allows. Transition to Toprol-XL at discharge Repeat limited echo tomorrow to rule out LV thrombus. At this time no indication for LifeVest Continue current statin. From a cardiac standpoint okay with transition to telemetry today. Likely discharge tomorrow morning -- Follow-up with me in 1 to 2 weeks. Discuss cardiac rehab, starting SGLT2 Admission and Anticipated Discharge Date Admission Date: January 30, 2022 Subjective Reports intermittent chest discomfort overnight. ECG without acute changes. This morning largely chest pain-free. Mild discomfort if takes deep breath pain. She did receive a dose of Ativan last night for anxiety. Tele reviewed--sinus rhythm, no events Review of Systems Review of Systems: All systems reviewed & are unremarkable except as noted in HPI & below Physical Exam Physical Exam: General: comfortable HEENT: Sclerae anicteric Lungs: Clear to auscultation bilaterally Cardiac: Regular rate and rhythm, no murmurs. Vascular: Right radial artery access site with no ecchymosis, hematoma. Distal pulse and sensation intact. Abdomen: Soft, nontender Extremities: Well perfused, no peripheral edema Neuro: Nonfocal Psych: Alert orient x3, normal affect and mood Results & Data ([facility]) Vital Signs (Past 12 Hours) Vital Signs Temp Pulse Resp BP Pulse Ox O2 Del Method 01/31/22 06:30 70 20 94 01/31/22 06:01 65 14 96 01/31/22 06:01 83/65 L 01/31/22 06:00 63 14 92 01/31/22 05:30 66 15 96 01/31/22 05:00 68 19 93 01/31/22 05:00 115/80 01/31/22 04:00 68 18 96 01/31/22 04:00 104/63 01/31/22 03:40 75 23 97 01/31/22 03:30 74 17 97 01/31/22 03:20 98.4 F 72 14 98 01/31/22 03:10 74 22 98 01/31/22 03:01 78 17 98 01/31/22 03:01 96/83 L 01/31/22 03:00 73 23 97 01/31/22 02:56 102/63 01/31/22 02:56 78 22 99 01/31/22 02:50 75 21 97 01/31/22 02:40 86 25 H 85 L 01/31/22 02:10 77 17 97 01/31/22 02:00 66 24 95 01/31/22 02:00 107/71 01/31/22 01:00 75 26 H 01/31/22 01:00 104/73 01/31/22 00:00 66 20 94 01/31/22 00:00 95/63 L 01/30/22 23:00 82 20 95 Room Air 01/30/22 23:00 105/72 01/31/22 00:00 68 01/30/22 22:01 113/90 01/30/22 22:01 83 23 95 01/30/22 22:00 83 21 96 01/30/22 21:00 86 24 96 01/30/22 21:00 98.8 F 119/88 PG Care Time/CCT Total # of Minutes Spent Total Time Spent with Patient: Total time spent is greater than 50% in coordination of care (as documented) at patient's floor/unit and/or counseling patient: Coding Level of Care Code 13057 Subseq Hosp Care Lvl 3 Diagnoses CAD (coronary artery disease) I25.10
--- NOTE | 2022-01-31 09:37 | Hospitalist Progress Note ---
Date of Service January 31, 2022 Assessment & Plan (1) STEMI (ST elevation myocardial infarction): Plan: Ischemic CEMENTER HAND EF 35-40%, apical akinesis Dyslipidemia (2) Elevated LFTs: (3) Leucocytosis: (4) Impaired fasting glucose: Plan 66 year old female who presented with chest pain and found to have anterior STEMI and s/p emergent cardiac cath and stenting today Cardiac cath findings: LM -normal caliber, angiographically normal LAD -medium caliber, calcified, 100% acute occlusion at takeoff of high D1 Circumflex -medium caliber, 40 to 50% distal stenosis. OM1, left PLB without significant disease RCA -dominant, medium caliber, no significant disease Summary: 1. Anterior STEMI/100% occluded proximal LAD 2. Mild to moderate residual non-culprit coronary artery disease -40 to 50% distal circumflex 40 to 50% ostial jailed second diagonal after PCI 3. Elevated intracardiac filling pressure (LVEDP 32) 4. Successful PCI of proximal to mid LAD with single drug-eluting stent (3.0 x 34 mm Jose Luis; postdilated with 3.5 NC). Anterior STEMI- s/p BLANQUITA x1 by Dr Paez (01/30/2022) - Admitted to ICU initially after cath, now pt in PCU - Continue DAPT (aspirin/plavix) for at least one year - started on lipitor 80 mg daily - Started on metoprolol, lisinopril- uptitrated as BP allows, switch to toprol XL on DC - Troponin trended down - Echo this AM (01/31/2022) Normal LV size, borderline concentric LVH. LVEF 35 to 40%, apical akinesis. Mid anterior/anteroseptal, inferoseptum, inferior hypokinesis. Normal RV size and function. No significant valvular pathology. Normal est RA and PA pressures. No prior studies for comparison. - plan to repeat echo tmrw to r/o LV thrombus - Cardiac rehab - Recommended quitting smoking -Counseling provided. Patient determined to quit smoking Mildly elevated LFTs- likely in setting of above. Recheck as outpt Mild Leucocytosis- likely reactive. Impaired fasting glucose- possibly in setting of stress. check A1c. Monitor BG GERD- continue PPI, also in setting of DAPT. 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 Has upcoming appointment with repeat MRI. Currently asymptomatic Anxiety- lexapro was discontinued and switched to wellbutrin few days back. Tobacco abuse- declined nicotine patch. Recommended quitting. -Counseling provided. Patient determined to quit smoking DVT ppx- SCDs Dispo- PCU Admission and Anticipated Discharge Date Admission Date: January 30, 2022 Subjective Patient seen in follow-up status post STEMI, stent placement to LAD Currently patient is sitting up in bed, in no acute distress Reports overall feeling well Denies any more chest pain, shortness of breath, palpitations She is breathing comfortably on room air Initially presented with severe nausea, that has also resolved Review of Systems Review of Systems: All systems reviewed & are unremarkable except as noted in Subjective Physical Exam Physical Exam: General: WD/WN F Sitting comfortably in bed, not in distress, on room air HEENT: NC/AT. EOMI, PERRL, MMM Chest: Clear breath sounds bilaterally, no wheezes or crackles CVS: Regular rate and rhythm, normal heart sounds, no murmur Abdomen: Soft, non tender, not distended, normal bowel sounds Neuro: Awake, alert, oriented, no facial asymmetry, moves extremities Extremities: moves extremities, no LE edema Results & Data Results & Data ([facility]) Vital Signs (Past 12 Hours) Vital Signs Temp Pulse Resp BP Pulse Ox O2 Del Method 01/31/22 06:30 70 20 94 01/31/22 06:01 65 14 96 01/31/22 06:01 83/65 L 01/31/22 06:00 63 14 92 01/31/22 05:30 66 15 96 01/31/22 05:00 68 19 93 01/31/22 05:00 115/80 01/31/22 04:00 68 18 96 01/31/22 04:00 104/63 01/31/22 03:40 75 23 97 01/31/22 03:30 74 17 97 01/31/22 03:20 36.9 C 72 14 98 01/31/22 03:10 74 22 98 01/31/22 03:01 78 17 98 01/31/22 03:01 96/83 L 01/31/22 03:00 73 23 97 01/31/22 02:56 102/63 01/31/22 02:56 78 22 99 01/31/22 02:50 75 21 97 01/31/22 02:40 86 25 H 85 L 01/31/22 02:10 77 17 97 01/31/22 02:00 66 24 95 01/31/22 02:00 107/71 01/31/22 01:00 75 26 H 01/31/22 01:00 104/73 01/31/22 00:00 66 20 94 01/31/22 00:00 95/63 L 01/30/22 23:00 82 20 95 Room Air 01/30/22 23:00 105/72 01/31/22 00:00 68 01/30/22 22:01 113/90 01/30/22 22:01 83 23 95 01/30/22 22:00 83 21 96 Laboratory Results 01/31/22 01/31/22 01/31/22 Range/Units 07:30 04:28 04:28 WBC (4.8-10.8) K/ul RBC (3.93-5.22) M/uL Hgb (12.0-16.0) g/dl Hct (34.1-44.9) % MCV (80.0-100.0) fL MCH (25.0-34.0) pg MCHC (32.0-36.0) g/dL RDW Std Deviation (36.4-46.3) fL RDW Coeff of Isha (11.5-14.5) % Plt Count (130-400) K/uL MPV (9.4-12.3) fL Immature Gran % (Auto) % Neut % (Auto) % Lymph % (Auto) % [place] % (Auto) % Eos % (Auto) % Baso % (Auto) % Neut # (Auto) (1.4-6.5) K/uL Lymph # (Auto) (1.2-3.4) K/uL [place] # (Auto) (0.24-0.82) K/uL Eos # (Auto) (0-0.50) K/uL Baso # (Auto) (0-0.2) K/uL Immature Gran # (Auto) (0.00-0.02) K/uL Sodium (136-145) mmol/L Potassium (3.5-5.1) mmol/L Chloride (98-107) mmol/L Carbon Dioxide (21-32) mmol/L Anion Gap (3-11) BUN (6-23) mg/dl Creatinine (0.6-1.2) mg/dl Est Cr Clr Drug Dosing ml/min Est GFR ( Amer) ml/min Est GFR (Non-Af Amer) ml/min BUN/Creatinine Ratio (10-20) Glucose (70-99(Fasting)) mg/dl POC Glucose 122 H (70-99) mg/dl Estimat Average Glucose 146 mg/dl Hemoglobin A1c 6.7 H (4.5-5.6) % Calcium (8.5-10.1) mg/dl Phosphorus (2.5-4.9) mg/dl Magnesium (1.7-2.4) mg/dl Troponin I High Sens (0-14) pg/ml B-Natriuretic Peptide (0-100) pg/ml Triglycerides (0-150) mg/dl Cholesterol (0-200) mg/dl LDL Cholesterol Direct mg/dl LDL Cholesterol, Calc mg/dl VLDL Cholesterol, Calc (0-30) mg/dl HDL Cholesterol mg/dl Cholesterol/HDL Ratio (0-5) Nasal Screen MRSA (PCR) (Negative) Hepatitis A IgM Ab Pending Hep Bs Antigen Pending Hep Bs Ag Confirmation Pending Hep B Core IgM Ab Pending Hepatitis C Ab (EIA) Pending Hep C Ab Signal/Cutoff Pending 01/31/22 01/31/22 01/30/22 Range/Units 04:28 04:28 22:45 WBC 11.85 H (4.8-10.8) K/ul RBC 4.57 (3.93-5.22) M/uL Hgb 14.0 (12.0-16.0) g/dl Hct 41.9 (34.1-44.9) % MCV 91.7 (80.0-100.0) fL MCH 30.6 (25.0-34.0) pg MCHC 33.4 (32.0-36.0) g/dL RDW Std Deviation 43.7 (36.4-46.3) fL RDW Coeff of Isha 13.0 (11.5-14.5) % Plt Count 217 (130-400) K/uL MPV 9.4 (9.4-12.3) fL Immature Gran % (Auto) 1.7 % Neut % (Auto) 65.2 % Lymph % (Auto) 25.1 % [place] % (Auto) 6.4 % Eos % (Auto) 1.3 % Baso % (Auto) 0.3 % Neut # (Auto) 7.72 H (1.4-6.5) K/uL Lymph # (Auto) 2.98 (1.2-3.4) K/uL [place] # (Auto) 0.76 (0.24-0.82) K/uL Eos # (Auto) 0.15 (0-0.50) K/uL Baso # (Auto) 0.04 (0-0.2) K/uL Immature Gran # (Auto) 0.20 H (0.00-0.02) K/uL Sodium 137 (136-145) mmol/L Potassium 4.3 (3.5-5.1) mmol/L Chloride 105 (98-107) mmol/L Carbon Dioxide 25 (21-32) mmol/L Anion Gap 7 (3-11) BUN 12 (6-23) mg/dl Creatinine 0.78 D (0.6-1.2) mg/dl Est Cr Clr Drug Dosing 83.7 ml/min Est GFR ( Amer) 93.1 ml/min Est GFR (Non-Af Amer) 80.3 ml/min BUN/Creatinine Ratio 15.4 (10-20) Glucose 173 H (70-99(Fasting)) mg/dl POC Glucose (70-99) mg/dl Estimat Average Glucose mg/dl Hemoglobin A1c (4.5-5.6) % Calcium 8.9 (8.5-10.1) mg/dl Phosphorus 2.6 (2.5-4.9) mg/dl Magnesium 2.2 (1.7-2.4) mg/dl Troponin I High Sens 18441.6 H* D 17400.1 H* D (0-14) pg/ml B-Natriuretic Peptide (0-100) pg/ml Triglycerides 143 (0-150) mg/dl Cholesterol 192 (0-200) mg/dl LDL Cholesterol Direct 159 mg/dl LDL Cholesterol, Calc 132 mg/dl VLDL Cholesterol, Calc 29 (0-30) mg/dl HDL Cholesterol 31 mg/dl Cholesterol/HDL Ratio 6.2 H (0-5) Nasal Screen MRSA (PCR) (Negative) Hepatitis A IgM Ab Hep Bs Antigen Hep Bs Ag Confirmation Hep B Core IgM Ab Hepatitis C Ab (EIA) Hep C Ab Signal/Cutoff 01/30/22 01/30/22 01/30/22 Range/Units 21:04 17:04 15:10 WBC (4.8-10.8) K/ul RBC (3.93-5.22) M/uL Hgb (12.0-16.0) g/dl Hct (34.1-44.9) % MCV (80.0-100.0) fL MCH (25.0-34.0) pg MCHC (32.0-36.0) g/dL RDW Std Deviation (36.4-46.3) fL RDW Coeff of Isha (11.5-14.5) % Plt Count (130-400) K/uL MPV (9.4-12.3) fL Immature Gran % (Auto) % Neut % (Auto) % Lymph % (Auto) % [place] % (Auto) % Eos % (Auto) % Baso % (Auto) % Neut # (Auto) (1.4-6.5) K/uL Lymph # (Auto) (1.2-3.4) K/uL [place] # (Auto) (0.24-0.82) K/uL Eos # (Auto) (0-0.50) K/uL Baso # (Auto) (0-0.2) K/uL Immature Gran # (Auto) (0.00-0.02) K/uL Sodium (136-145) mmol/L Potassium (3.5-5.1) mmol/L Chloride (98-107) mmol/L Carbon Dioxide (21-32) mmol/L Anion Gap (3-11) BUN (6-23) mg/dl Creatinine (0.6-1.2) mg/dl Est Cr Clr Drug Dosing ml/min Est GFR ( Amer) ml/min Est GFR (Non-Af Amer) ml/min BUN/Creatinine Ratio (10-20) Glucose (70-99(Fasting)) mg/dl POC Glucose 155 H 133 H (70-99) mg/dl Estimat Average Glucose mg/dl Hemoglobin A1c (4.5-5.6) % Calcium (8.5-10.1) mg/dl Phosphorus (2.5-4.9) mg/dl Magnesium (1.7-2.4) mg/dl Troponin I High Sens 17900.8 H* D (0-14) pg/ml B-Natriuretic Peptide (0-100) pg/ml Triglycerides (0-150) mg/dl Cholesterol (0-200) mg/dl LDL Cholesterol Direct mg/dl LDL Cholesterol, Calc mg/dl VLDL Cholesterol, Calc (0-30) mg/dl HDL Cholesterol mg/dl Cholesterol/HDL Ratio (0-5) Nasal Screen MRSA (PCR) (Negative) Hepatitis A IgM Ab Hep Bs Antigen Hep Bs Ag Confirmation Hep B Core IgM Ab Hepatitis C Ab (EIA) Hep C Ab Signal/Cutoff 01/30/22 01/30/22 Range/Units 10:40 09:56 WBC (4.8-10.8) K/ul RBC (3.93-5.22) M/uL Hgb (12.0-16.0) g/dl Hct (34.1-44.9) % MCV (80.0-100.0) fL MCH (25.0-34.0) pg MCHC (32.0-36.0) g/dL RDW Std Deviation (36.4-46.3) fL RDW Coeff of Isha (11.5-14.5) % Plt Count (130-400) K/uL MPV (9.4-12.3) fL Immature Gran % (Auto) % Neut % (Auto) % Lymph % (Auto) % [place] % (Auto) % Eos % (Auto) % Baso % (Auto) % Neut # (Auto) (1.4-6.5) K/uL Lymph # (Auto) (1.2-3.4) K/uL [place] # (Auto) (0.24-0.82) K/uL Eos # (Auto) (0-0.50) K/uL Baso # (Auto) (0-0.2) K/uL Immature Gran # (Auto) (0.00-0.02) K/uL Sodium (136-145) mmol/L Potassium (3.5-5.1) mmol/L Chloride (98-107) mmol/L Carbon Dioxide (21-32) mmol/L Anion Gap (3-11) BUN (6-23) mg/dl Creatinine (0.6-1.2) mg/dl Est Cr Clr Drug Dosing ml/min Est GFR ( Amer) ml/min Est GFR (Non-Af Amer) ml/min BUN/Creatinine Ratio (10-20) Glucose (70-99(Fasting)) mg/dl POC Glucose (70-99) mg/dl Estimat Average Glucose mg/dl Hemoglobin A1c (4.5-5.6) % Calcium (8.5-10.1) mg/dl Phosphorus (2.5-4.9) mg/dl Magnesium (1.7-2.4) mg/dl Troponin I High Sens (0-14) pg/ml B-Natriuretic Peptide 44 (0-100) pg/ml Triglycerides (0-150) mg/dl Cholesterol (0-200) mg/dl LDL Cholesterol Direct mg/dl LDL Cholesterol, Calc mg/dl VLDL Cholesterol, Calc (0-30) mg/dl HDL Cholesterol mg/dl Cholesterol/HDL Ratio (0-5) Nasal Screen MRSA (PCR) Negative (Negative) Hepatitis A IgM Ab Hep Bs Antigen Hep Bs Ag Confirmation Hep B Core IgM Ab Hepatitis C Ab (EIA) Hep C Ab Signal/Cutoff Medications Administered Current Inpatient Medications Acetaminophen (Acetaminophen 325 Mg Tab) 650 mg PO Q4H PRN PRN Reason: MILD Pain (Scale 1,2,3) Stop: 03/01/22 08:22 Aspirin (Aspirin 81 Mg Ectab) 81 mg PO [facility] Stop: 03/01/22 08:59 Last Admin: 01/31/22 07:58 Dose: 81 mg Atorvastatin Calcium (Atorvastatin 40 Mg Tab) 80 mg PO [facility] Stop: 03/01/22 08:59 Last Admin: 01/31/22 07:58 Dose: 80 mg Bupropion HCl (Bupropion Xl 150 Mg Tabcr) 150 mg PO [facility] Stop: 03/02/22 08:59 Last Admin: 01/31/22 07:59 Dose: 150 mg Clopidogrel Bisulfate (Clopidogrel Bisulfate 75 Mg Tab) 75 mg PO [facility] Stop: 03/01/22 08:59 Last Admin: 01/31/22 07:59 Dose: 75 mg Dextrose (Dextrose 50% 50 Ml Syringe) 25 - 50 ml IV UD PRN; Protocol PRN Reason: Hypoglycemia Protocol Stop: 03/02/22 05:44 Glucagon (Glucagon For Inj 1 Mg Vial) 1 mg SQ UD PRN; Protocol PRN Reason: Hypoglycemia Protocol Stop: 03/02/22 05:44 Glucose (Glucose 40% Gel 15 Gm Tube) 15 - 30 gm PO UD PRN; Protocol PRN Reason: Hypoglycemia Protocol Stop: 03/02/22 05:44 Glucose (Glucose 10 Tab/Tube) 4 - 8 tab PO UD PRN; Protocol PRN Reason: Hypoglycemia Protocol Stop: 03/02/22 05:44 Famotidine 20 mg/ Syringe 5 mls @ 2.5 mls/min IV DAILY [facility] Stop: 03/01/22 17:44 Last Admin: 01/31/22 08:00 Dose: 2.5 mls/min Insulin Aspart (Insulin Aspart Per Unit) 0 units SC ACHS [facility] Stop: 03/02/22 07:29 Last Admin: 01/31/22 07:57 Dose: Not Given Lisinopril (Lisinopril 5 Mg Tab) 5 mg PO QAM [facility] Stop: 03/02/22 08:59 Last Admin: 01/31/22 07:59 Dose: 5 mg Metoprolol Tartrate (Metoprolol Tartrate 25 Mg Tab) 25 mg PO BID [facility] Stop: 03/01/22 08:59 Last Admin: 01/31/22 07:59 Dose: 25 mg Miscellaneous (Icu Protocol For Hyperglycemia) 1 each N/A PRN PRN; Protocol PRN Reason: Hyperglycemia Protocol Stop: 02/01/22 08:27 Miscellaneous (Carbohydrates For Hypoglycemia ) 15 - 30 gm PO UD PRN PRN Reason: Hypoglycemia Treatment Stop: 03/02/22 05:44 Miscellaneous Information (Pharmacy Glycemic Mgmt Consult) 1 each N/A UD PRN PRN Reason: Consult Stop: 03/02/22 05:17 Nitroglycerin (Nitroglycerin Sl 0.4 Mg/Tab Tab) 0.4 mg SL Q5M PRN PRN Reason: Chest Pain Last Admin: 01/30/22 10:50 Dose: 0.4 mg Pantoprazole Sodium (Pantoprazole 40 Mg Tab) 40 mg PO QAM [facility] Stop: 03/01/22 08:59 Last Admin: 01/31/22 07:59 Dose: 40 mg Polyethylene Glycol (Polyethylene (Miralax) 17 Gm Pack) 17 gm PO DAILY [facility] Stop: 03/02/22 08:59 Last Admin: 01/31/22 07:59 Dose: 17 gm (1) STEMI (ST elevation myocardial infarction) Involved coronary artery: other anterior wall coronary artery Qualified Code(s): I21.09 - ST elevation (STEMI) myocardial infarction involving other coronary artery of anterior wall
[2022-01-31] MEDS: FAMOTIDINE 20 MG TAB PO SCH (12:34)
--- NOTE | 2022-02-01 05:42 | Electrocardiogram Report ---
Test Reason : Blood Pressure : / mmHG Vent. Rate : 071 BPM Atrial Rate : 071 BPM P-R Int : 170 ms QRS Dur : 086 ms QT Int : 460 ms P-R-T Axes : 051 -63 208 degrees QTc Int : 499 ms Normal sinus rhythm Left axis deviation Low voltage QRS Anterior infarct T wave abnormality, consider inferior ischemia T wave abnormality, consider anterior ischemia Prolonged QT Abnormal ECG When compared with ECG of 30-JAN-2022 10:26, Serial changes of Anterior infarct Present Confirmed by Marcello Roberts ([id number]) on 02/01/2022 5:42:17 AM Referred By: REFERRED SELF Confirmed By:Marcello Roberts
--- NOTE | 2022-02-01 05:43 | Electrocardiogram Report ---
Test Reason : Blood Pressure : / mmHG Vent. Rate : 073 BPM Atrial Rate : 073 BPM P-R Int : 178 ms QRS Dur : 088 ms QT Int : 492 ms P-R-T Axes : 057 -61 207 degrees QTc Int : 542 ms Normal sinus rhythm Left axis deviation Low voltage QRS Anterior infarct T wave abnormality, consider inferior ischemia T wave abnormality, consider anterior ischemia Prolonged QT Abnormal ECG When compared with ECG of 31-JAN-2022 02:47, No significant change was found Confirmed by Marcello Roberts ([id number]) on 02/01/2022 5:43:18 AM Referred By: REFERRED SELF Confirmed By:Marcello Roberts
[2022-02-01] MEDS: INSULIN ASPART PER UNIT SC SCH (07:57)
[2022-02-01] MEDS: ATORVASTATIN 40 MG TAB PO SCH (07:58)
[2022-02-01] MEDS: PANTOprazole 40 MG TAB PO SCH (07:58)
[2022-02-01] MEDS: METOPROLOL TARTRATE 25 MG TAB PO SCH (07:58)
[2022-02-01] MEDS: CLOPIDOGREL BISULFATE 75 MG TAB PO SCH (07:58)
[2022-02-01] MEDS: lisinopril 5 MG TAB PO SCH (07:58)
[2022-02-01] MEDS: FAMOTIDINE 20 MG TAB PO SCH (07:58)
[2022-02-01] MEDS: buPROPion XL 150 MG TABCR PO SCH (07:58)
[2022-02-01] MEDS: ASPIRIN 81 MG ECTAB PO SCH (07:59)
[2022-02-01] MEDS: POLYETHYLENE (MIRALAX) 17 GM PACK PO SCH (07:59)
--- NOTE | 2022-02-01 09:06 | XCELERA ---
[id number] [id number]
[2022-02-01 09:14] LABS: Basophils # (auto) 0.07 K/uL (0-0.2); Basophils % (auto) 0.7 %; Eosinophils # (auto) 0.19 K/uL (0-0.50); Eosinophils % (auto) 1.8 %; Hematocrit (blood only) 42.7 % (34.1-44.9); Hemoglobin 14.5 g/dl (12.0-16.0); Immature Granulocytes # (auto) 0.21 K/uL (0.00-0.02); Lymphocytes # (auto) 2.84 K/uL (1.2-3.4); Lymphocytes % (auto) 26.9 %; Mean Corpuscular Hemoglobin 30.6 pg (25.0-34.0); Mean Corpuscular Volume 90.1 fL (80.0-100.0); Mean Platelet Volume 9.9 fL (9.4-12.3); Monocytes # (auto) 0.63 K/uL (0.24-0.82); Neutrophils # (auto) 6.62 K/uL (1.4-6.5); Neutrophils % (auto) 62.6 %; Platelet Count 242 K/uL (130-400); RDW Coefficient of Variation 12.8 % (11.5-14.5); RDW Standard Deviation 42.2 fL (36.4-46.3); Red Blood Count 4.74 M/uL (3.93-5.22); White Blood Count 10.56 K/ul (4.8-10.8)
--- NOTE | 2022-02-01 09:18 | Cardiology Progress Note ---
Date of Service February 01, 2022 Assessment & Plan (1) CAD (coronary artery disease): Plan: Anterior STEMIstatus post PCI with BLANQUITA to proximal to mid LAD Mild to moderate nonculprit CAD40% distal circumflex, 40% ostial jailed D2 2. Ischemic cardiomyopathyEF 40-45%, apical hypokinesis. 3. Dyslipidemia 4. Vestibular schwannomahistory of prior ICH 5. Tobacco abuse 6. Borderline DM2 - A1c 6.7 Chest pain-free Electrically stable on telemetry No access site complications LV function improved on echo. Dilated IVC on echo and some congestion on exam. -- Give 20 of IV lasix today. Home on lasix 20mg daily. -- Add spironolactone 12.5 mg daily continue DAPT with aspirin, clopidogrel Continue current metoprolol, lisinopril. Transition to Toprol-XL at discharge Continue current statin. Up walking this morning. If feeling OK, can be discharged to home later today. -- Follow-up with me in 1 to 2 weeks. Discuss cardiac rehab, starting SGLT2 Admission and Anticipated Discharge Date Admission Date: January 30, 2022 Subjective No additional chest pain. Some shortness of breath while taking a deep breath. Denies symptoms when walking to bathroom. Tele reviewed--sinus rhythm, no events Review of Systems Review of Systems: All systems reviewed & are unremarkable except as noted in HPI & below Physical Exam Physical Exam: General: comfortable HEENT: Sclerae anicteric Lungs: Clear to auscultation, decreased breath sounds at bases. Cardiac: Regular rate and rhythm, no murmurs. Vascular: Right radial artery access site with no ecchymosis, hematoma. Distal pulse and sensation intact. Abdomen: Soft, nontender Extremities: Well perfused, no peripheral edema Neuro: Nonfocal Psych: Alert orient x3, normal affect and mood Results & Data ([facility]) Vital Signs (Past 12 Hours) Vital Signs Temp Pulse Pulse Pulse Resp BP Pulse Ox 02/01/22 07:37 98.1 F 77 16 107/70 97 02/01/22 07:17 58 L 02/01/22 02:50 97.9 F 69 15 108/65 93 01/31/22 23:21 78 01/31/22 22:55 98.1 F 75 18 94/67 L 97 O2 Del Method 02/01/22 07:37 Room Air 02/01/22 07:17 02/01/22 02:50 Room Air 01/31/22 23:21 01/31/22 22:55 Room Air PG Care Time/CCT Total # of Minutes Spent Total Time Spent with Patient: Total time spent is greater than 50% in coordination of care (as documented) at patient's floor/unit and/or counseling patient: Coding Level of Care Code 43504 Subseq Hosp Care Lvl 3 Diagnoses CAD (coronary artery disease) I25.10
[2022-02-01] MEDS ORDERED: FUROSEMIDE INJ 20 MG/2 ML VIAL IV ONE (09:19)
[2022-02-01] MEDS ORDERED: SPIRONOLACTONE 12.5 MG TAB PO SCH (09:30)
[2022-02-01 09:48] LABS: BUN Creatinine Ratio 18.6 (10-20); Calcium 9.3 mg/dl (8.5-10.1); Creatinine Clr Calc Pharmacy 76.1 ml/min; Est GFR (African American) 82.7 ml/min; Est GFR (Non-African American) 71.4 ml/min; Magnesium 2.2 mg/dl (1.7-2.4); Phosphorus 3.2 mg/dl (2.5-4.9); Potassium 4.4 mmol/L (3.5-5.1)
--- NOTE | 2022-02-01 11:16 | Pharmacy Report ---
Pharmacy Glycemic Sign Off Nt - Date of Service February 01, 2022 - Assessment & Plan ASSESSMENT: * Pharmacy auto-consulted per ICU protocol yesterday. * No insulin has been administered. * BSG's have ranged 122-164 mg/dL over the last 24 hours. * Pharmacy stopping insulin and signing off. OK per Dr. Thomson PLAN FOR INPATIENT GLYCEMIC CONTROL: No changes needed to current regimen. * No insulin needed * Pharmacy is signing off of glycemic consult and will no longer be making adjustments to inpatient regimen. Please feel free to re-consult if needed. Thank you.
--- NOTE | 2022-02-01 13:50 | Hospitalist Progress Note ---
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 OM1, left PLB without significant disease RCA -dominant, medium caliber, no significant disease Summary: 1. Anterior STEMI/100% occluded proximal LAD 2. Mild to moderate residual non-culprit coronary artery disease -40 to 50% distal circumflex 40 to 50% ostial jailed second diagonal after PCI 3. Elevated intracardiac filling pressure (LVEDP 32) 4. Successful PCI of proximal to mid LAD with single drug-eluting stent (3.0 x 34 mm [place]; postdilated with 3.5 NC). Anterior STEMI- s/p BLANQUITA x1 by Dr Paez (01/30/2022) - Admitted to ICU initially after cath, now pt in PCU - Continue DAPT (aspirin/plavix) for at least one year - started on lipitor 80 mg daily - Started on metoprolol, lisinopril- uptitrated as BP allows, switch to toprol XL on DC - Troponin trended down - Echo this AM (01/31/2022) Normal LV size, borderline concentric LVH. LVEF 35 to 40%, apical akinesis. Mid anterior/anteroseptal, inferoseptum, inferior hypokinesis. Normal RV size and function. No significant valvular pathology. Normal est RA and PA pressures. No prior studies for comparison. - repeat echo today w/ improved EF DC on asa/plavix toprol XL, statin, lisinopril, spironolactone - received one dose IV lasix this AM, plan to DC on lasix 20 mg daily - follow up w/ PCP and cardiology - Cardiac rehab - Recommended quitting smoking -Counseling provided. Patient determined to quit smoking Mildly elevated LFTs- likely in setting of above. Recheck as outpt Mild Leucocytosis- likely reactive. Normalized today. Impaired fasting glucose- possibly in setting of stress. current A1c 6.7%. Monitor BG GERD- continue PPI, also in setting of DAPT. 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 Has upcoming appointment with repeat MRI. Currently asymptomatic Anxiety- lexapro was discontinued and switched to wellbutrin few days back. Tobacco abuse- declined nicotine patch. Recommended quitting - Counseling provided. Patient determined to quit smoking DVT ppx- SCDs Dispo- PCU, plan to DC home Admission and Anticipated Discharge Date Admission Date: January 30, 2022 Subjective Patient seen in follow-up status post STEMI, stent placement to LAD Currently patient is sitting up in bed, in no acute distress Reports overall feeling well Denies any more chest pain, shortness of breath, palpitations She is breathing comfortably on room air Initially presented with severe nausea, that has also resolved Review of Systems Review of Systems: All systems reviewed & are unremarkable except as noted in Subjective Physical Exam Physical Exam: General: WD/WN F Sitting comfortably in bed, not in distress, on room air HEENT: NC/AT. EOMI, PERRL, MMM Chest: Clear breath sounds bilaterally, no wheezes or crackles CVS: Regular rate and rhythm, normal heart sounds, no murmur Abdomen: Soft, non tender, not distended, normal bowel sounds Neuro: Awake, alert, oriented, no facial asymmetry, moves extremities Extremities: moves extremities, no LE edema Results & Data Results & Data ([facility]) Vital Signs (Past 12 Hours) Vital Signs Temp Pulse Pulse Pulse Resp BP Pulse Ox 02/01/22 11:33 36.6 C 71 16 94/66 L 96 02/01/22 07:37 36.7 C 77 16 107/70 97 02/01/22 07:17 58 L 02/01/22 02:50 36.6 C 69 15 108/65 93 O2 Del Method 02/01/22 11:33 Room Air 02/01/22 07:37 Room Air 02/01/22 07:17 02/01/22 02:50 Room Air Laboratory Results 02/01/22 02/01/22 02/01/22 Range/Units 11:14 08:17 08:17 WBC 10.56 (4.8-10.8) K/ul RBC 4.74 (3.93-5.22) M/uL Hgb 14.5 (12.0-16.0) g/dl Hct 42.7 (34.1-44.9) % MCV 90.1 (80.0-100.0) fL MCH 30.6 (25.0-34.0) pg MCHC 34.0 (32.0-36.0) g/dL RDW Std Deviation 42.2 (36.4-46.3) fL RDW Coeff of Isha 12.8 (11.5-14.5) % Plt Count 242 (130-400) K/uL MPV 9.9 (9.4-12.3) fL Immature Gran % (Auto) 2.0 % Neut % (Auto) 62.6 % Lymph % (Auto) 26.9 % [place] % (Auto) 6.0 % Eos % (Auto) 1.8 % Baso % (Auto) 0.7 % Neut # (Auto) 6.62 H (1.4-6.5) K/uL Lymph # (Auto) 2.84 (1.2-3.4) K/uL [place] # (Auto) 0.63 (0.24-0.82) K/uL Eos # (Auto) 0.19 (0-0.50) K/uL Baso # (Auto) 0.07 (0-0.2) K/uL Immature Gran # (Auto) 0.21 H (0.00-0.02) K/uL Sodium 135 L (136-145) mmol/L Potassium 4.4 (3.5-5.1) mmol/L Chloride 104 (98-107) mmol/L Carbon Dioxide 24 (21-32) mmol/L Anion Gap 7 (3-11) BUN 16 (6-23) mg/dl Creatinine 0.86 (0.6-1.2) mg/dl Est Cr Clr Drug Dosing 76.1 ml/min Est GFR ( Amer) 82.7 ml/min Est GFR (Non-Af Amer) 71.4 ml/min BUN/Creatinine Ratio 18.6 (10-20) Glucose 171 H (70-99(Fasting)) mg/dl POC Glucose 136 H (70-99) mg/dl Calcium 9.3 (8.5-10.1) mg/dl Phosphorus 3.2 (2.5-4.9) mg/dl Magnesium 2.2 (1.7-2.4) mg/dl 02/01/22 01/31/22 01/31/22 Range/Units 07:14 20:13 16:11 WBC (4.8-10.8) K/ul RBC (3.93-5.22) M/uL Hgb (12.0-16.0) g/dl Hct (34.1-44.9) % MCV (80.0-100.0) fL MCH (25.0-34.0) pg MCHC (32.0-36.0) g/dL RDW Std Deviation (36.4-46.3) fL RDW Coeff of Isha (11.5-14.5) % Plt Count (130-400) K/uL MPV (9.4-12.3) fL Immature Gran % (Auto) % Neut % (Auto) % Lymph % (Auto) % [place] % (Auto) % Eos % (Auto) % Baso % (Auto) % Neut # (Auto) (1.4-6.5) K/uL Lymph # (Auto) (1.2-3.4) K/uL [place] # (Auto) (0.24-0.82) K/uL Eos # (Auto) (0-0.50) K/uL Baso # (Auto) (0-0.2) K/uL Immature Gran # (Auto) (0.00-0.02) K/uL Sodium (136-145) mmol/L Potassium (3.5-5.1) mmol/L Chloride (98-107) mmol/L Carbon Dioxide (21-32) mmol/L Anion Gap (3-11) BUN (6-23) mg/dl Creatinine (0.6-1.2) mg/dl Est Cr Clr Drug Dosing ml/min Est GFR ( Amer) ml/min Est GFR (Non-Af Amer) ml/min BUN/Creatinine Ratio (10-20) Glucose (70-99(Fasting)) mg/dl POC Glucose 147 H 123 H 164 H (70-99) mg/dl Calcium (8.5-10.1) mg/dl Phosphorus (2.5-4.9) mg/dl Magnesium (1.7-2.4) mg/dl Medications Administered Current Inpatient Medications Acetaminophen (Acetaminophen 325 Mg Tab) 650 mg PO Q4H PRN PRN Reason: MILD Pain (Scale 1,2,3) Stop: 03/01/22 08:22 Aspirin (Aspirin 81 Mg Ectab) 81 mg PO [facility] Stop: 03/01/22 08:59 Last Admin: 02/01/22 07:59 Dose: 81 mg Atorvastatin Calcium (Atorvastatin 40 Mg Tab) 80 mg PO [facility] Stop: 03/01/22 08:59 Last Admin: 02/01/22 07:58 Dose: 80 mg Bupropion HCl (Bupropion Xl 150 Mg Tabcr) 150 mg PO [facility] Stop: 03/02/22 08:59 Last Admin: 02/01/22 07:58 Dose: 150 mg Clopidogrel Bisulfate (Clopidogrel Bisulfate 75 Mg Tab) 75 mg PO [facility] Stop: 03/01/22 08:59 Last Admin: 02/01/22 07:58 Dose: 75 mg Dextrose (Dextrose 50% 50 Ml Syringe) 25 - 50 ml IV UD PRN; Protocol PRN Reason: Hypoglycemia Protocol Stop: 03/02/22 05:44 Famotidine (Famotidine 20 Mg Tab) 20 mg PO DAILY [facility] Stop: 03/02/22 12:28 Last Admin: 02/01/22 07:58 Dose: 20 mg Furosemide (Furosemide 20 Mg Tab) 20 mg PO [facility] Stop: 03/04/22 08:59 Glucagon (Glucagon For Inj 1 Mg Vial) 1 mg SQ UD PRN; Protocol PRN Reason: Hypoglycemia Protocol Stop: 03/02/22 05:44 Glucose (Glucose 40% Gel 15 Gm Tube) 15 - 30 gm PO UD PRN; Protocol PRN Reason: Hypoglycemia Protocol Stop: 03/02/22 05:44 Glucose (Glucose 10 Tab/Tube) 4 - 8 tab PO UD PRN; Protocol PRN Reason: Hypoglycemia Protocol Stop: 03/02/22 05:44 Lisinopril (Lisinopril 5 Mg Tab) 5 mg PO [facility] Stop: 03/02/22 08:59 Last Admin: 02/01/22 07:58 Dose: 5 mg Metoprolol Succinate (Metoprolol Succ 50mg Ext Rel Tab) 50 mg PO [facility] Stop: 03/04/22 08:59 Miscellaneous (Carbohydrates For Hypoglycemia ) 15 - 30 gm PO UD PRN PRN Reason: Hypoglycemia Treatment Stop: 03/02/22 05:44 Nitroglycerin (Nitroglycerin Sl 0.4 Mg/Tab Tab) 0.4 mg SL Q5M PRN PRN Reason: Chest Pain Last Admin: 01/30/22 10:50 Dose: 0.4 mg Pantoprazole Sodium (Pantoprazole 40 Mg Tab) 40 mg PO QAM [facility] Stop: 03/01/22 08:59 Last Admin: 02/01/22 07:58 Dose: 40 mg Polyethylene Glycol (Polyethylene (Miralax) 17 Gm Pack) 17 gm PO DAILY [facility] Stop: 03/02/22 08:59 Last Admin: 02/01/22 07:59 Dose: Not Given Spironolactone (Spironolactone 12.5 Mg Tab) 12.5 mg PO DAILY [facility] Stop: 03/03/22 09:29 Last Admin: 02/01/22 10:00 Dose: 12.5 mg (1) STEMI (ST elevation myocardial infarction) Involved coronary artery: other anterior wall coronary artery Qualified Code(s): I21.09 - ST elevation (STEMI) myocardial infarction involving other coronary artery of anterior wall
[2022-02-01 14:36] LABS: HBSAG NON-REACTIVE (NON-REACTIVE); Hepatitis A Antibody IgM NON-REACTIVE (NON-REACTIVE); Hepatitis B Core Antibody IgM NON-REACTIVE (NON-REACTIVE)
--- NOTE | 2022-02-01 14:47 | Discharge Summary ---
Date of Service February 01, 2022 Admission HPI Per Admitting Provider 66 year old female who presented to the ED today with complaint of 'crushing' chest pain. She was having stuttering intermittent chest pain for 1 week, associated with nausea. This morning, she woke up at 3 am with severe chest pain and was associated with nausea and diaphoresis. She came to the ED. She was hemodynamically stable. her EKG showed ST elevation in V1 thorough V3 and St depression in leads II and III. Her troponin was elevated. She was diagnosed with anterior STEMI and underwent emergent cardiac cath and found to have 100% occluded proximal LAD which was stented. Hospitalist service was consulted for admission. Patient was seen and examined at bedside. Denies any more chest pain. Had some nausea but relieved with meds. Eating breakfast. Denies any other issues. Smokes a pack in 3-4 days but denies need for nicoderm patch. Drinks occasionally. Admission Exam Per Admitting Provider General: Sitting comfortably in bed, not in distress, on room air HEENT: EOMI, BASSEM, MMM Chest: Clear breath sounds bilaterally, no wheezes or crackles CVS: Regular rate and rhythm, normal heart sounds, no murmur Abdomen: Soft, non tender, not distended, normal bowel sounds Neuro: Awake, alert, oriented, conversing well, non focal Extremities: No cyanosis, clubbing or edema Principal Diagnosis STEMI Discharge Exam General: WD/WN F Sitting comfortably in bed, not in distress, on room air HEENT: NC/AT. EOMI, PERRL, MMM Chest: Clear breath sounds bilaterally, no wheezes or crackles CVS: Regular rate and rhythm, normal heart sounds, no murmur Abdomen: Soft, non tender, not distended, normal bowel sounds Neuro: Awake, alert, oriented, no facial asymmetry, moves extremities Extremities: moves extremities, no LE edema Discharge Data Allergies Allergy/AdvReac Type Severity Reaction Status Date / Time codeine AdvReac Severe HALLUCINATI Verified 12/05/19 17:38 ONS morphine AdvReac Severe HALLUCINATI Verified 12/05/19 17:38 ONS Consultations 01/30/22 08:30 Consult Cardiac Rehabilitation Routine 01/30/22 08:31 Consult Human Service Technician Routine 01/30/22 08:38 Consult Human Service Technician Routine 01/30/22 08:42 Consult Cardiology Routine Procedures Performed Operation Date: 01/30/22 07:00 Actual Procedures p Aspiration/PCI w/BLANQUITA for Stemi - Sarbjit Paez MD s Cath, Left with Cors and Vent - Sarbjit Paez MD s Cineradiography w/Routine Exam - MD jemal Wang IVUS Coronary Single Vessel - Sarbjit Paez MD Ordered Studies 01/30/22 07:04 CL Cath Imgs for PACS use only Stat 01/30/22 08:26 CL IVUS Coronary Single Vessel Routine Diabetes Follow up Diabetes Follow-up Needed for Newly Diagnosed Diabetes Hospital Course (1) STEMI (ST elevation myocardial infarction): 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 OM1, left PLB without significant disease RCA -dominant, medium caliber, no significant disease Summary: 1. Anterior STEMI/100% occluded proximal LAD 2. Mild to moderate residual non-culprit coronary artery disease -40 to 50% distal circumflex 40 to 50% ostial jailed second diagonal after PCI 3. Elevated intracardiac filling pressure (LVEDP 32) 4. Successful PCI of proximal to mid LAD with single drug-eluting stent (3.0 x 34 mm [place]; postdilated with 3.5 NC). Anterior STEMI- s/p BLANQUITA x1 by Dr Paez (01/30/2022) - Admitted to ICU initially after cath, now pt in PCU - Continue DAPT (aspirin/plavix) for at least one year - started on lipitor 80 mg daily - Started on metoprolol, lisinopril- uptitrated as BP allows, switch to toprol XL on DC - Troponin trended down - Echo this AM (01/31/2022) Normal LV size, borderline concentric LVH. LVEF 35 to 40%, apical akinesis. Mid anterior/anteroseptal, inferoseptum, inferior hypokinesis. Normal RV size and function. No significant valvular pathology. Normal est RA and PA pressures. No prior studies for comparison. - repeat echo today w/ improved EF DC on asa/plavix toprol XL, statin, lisinopril, spironolactone - received one dose IV lasix this AM, plan to DC on lasix 20 mg daily - follow up w/ PCP and cardiology - Cardiac rehab - Recommended quitting smoking -Counseling provided. Patient determined to quit smoking Mildly elevated LFTs- likely in setting of above. Recheck as outpt Mild Leucocytosis- likely reactive. Normalized today. Impaired fasting glucose- possibly in setting of stress. current A1c 6.7%. Monitor BG GERD- continue PPI, also in setting of DAPT. 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 Has upcoming appointment with repeat MRI. Currently asymptomatic Anxiety- lexapro was discontinued and switched to wellbutrin few days back. Tobacco abuse- declined nicotine patch. Recommended quitting - Counseling provided. Patient determined to quit smoking Total Time Total Time Spent Total Time Spent (In Minutes): 40 Discharge Plan Discharge Items Patient Disposition: Home - Self-Care Reason For Visit: STEMI Discharge Diagnosis: STEMI Activity: Per Instructions section Non-emergency contact: Primary Care Provider and Show Card Writer Call non-emergency contact if: you have any medication questions and your symptoms worsen Follow-up/Referrals: Magui Raygoza DO [Primary Care Provider] - (Date & Time 02/08/2022 11:00 AM Provider Kendall Perez MD Department Family [facility] ) Diet: Heart Healthy Addtl Attending Provider Instructions: Follow-up with your primary care doctor, the appointment was scheduled for you for February 08. You will also need to follow-up with your crystal mounter, you will be contacted by their office. You were started on several new medications, take them as prescribed. Make sure to take aspirin and Plavix every day. In addition, you were started on metoprolol, lisinopril, spironolactone, and atorvastatin. Also strongly recommend quitting smoking. Pending Studies at Discharge: No Stand-Alone Forms: My [facility], Smoking Cessation Medications and DC Order Prescriptions: New clopidogrel 75 mg Tablet 75 mg PO QAM Qty: 30 0RF atorvastatin 40 mg Tablet 80 mg PO QAM Qty: 30 0RF lisinopril [Zestril] 5 mg Tablet 5 mg PO QAM Qty: 30 0RF metoprolol succinate 50 mg Tablet Extended Release 24 Hr 50 mg PO QAM Qty: 30 0RF spironolactone 25 mg Tablet 12.5 mg PO DAILY Qty: 30 0RF aspirin 81 mg Tablet,Delayed Release (Dr/Ec) 81 mg PO QAM Qty: 30 0RF furosemide 20 mg Tablet 20 mg PO QAM Qty: 14 0RF Continued cyanocobalamin (vitamin B-12) [Vitamin B-12] 1,000 mcg Tablet 1,000 mcg PO DAILY calcium carbonate [Calcium 600] 600 mg calcium (1,500 mg) Tablet 600 mg PO DAILY famotidine [Pepcid] 20 mg tablet 20 mg PO DAILY fluticasone propionate [Flonase Allergy Relief] 50 mcg/actuation [place],Suspension 2 spray INTRANASAL DAILY PRN (Reason: Nasal Congestion) cholecalciferol (vitamin D3) [Vitamin D3] 125 mcg (5,000 unit) Tablet 125 mcg PO DAILY promethazine 25 mg tablet 25 mg PO Q6H PRN (Reason: nausea and vomiting) Qty: 14 0RF meclizine 25 mg tablet 25 mg PO QID PRN (Reason: dizziness) Qty: 20 0RF bupropion HCl 150 mg tablet extended release 24 hr 150 mg PO Discharge Orders: Discharge Order (Routine); Ordered 02/01/22 Ordered By: Kendall Thomson Admission Data Admit Date/Time: 01/30/22 08:31 Attending Provider: Kendall Thomson Admit Provider: Sarbjit Paez Primary Care Provider: Magui Raygoza Other Providers: Jah Buckley ; Kendall Thomson ; Yordy Maldonado ; Sarbjit Paez
[2022-02-02] MEDS ORDERED: METOPROLOL SUCC 50MG EXT REL TAB PO SCH (09:00)
[2022-02-02] MEDS ORDERED: FUROSEMIDE 20 MG TAB PO SCH (09:00)
== END 2022-02-01 14:51 | disposition home or self-care (01) | DRG 247 ==
LOC: ED 06:28 → CC 07:15 → SUATTDRO 08:31 → 1E 09:03 → 2S 01-31 14:22

== ENCOUNTER 2023-07-16 17:52 | Inpatient (IN) ==
[2023-07-16] MEDS ORDERED: SODIUM CHLORIDE 0.9% 1,000 ML IV ONE (18:10)
[2023-07-16] MEDS ORDERED: ONDANSETRON INJ 2 MG/ML 2 ML VIAL IV STA (18:10)
[2023-07-16] MEDS ORDERED: FAMOTIDINE 20MG IV PUSH 20 MG/5 ML SYR IV STA (18:20)
[2023-07-16] MEDS ORDERED: ALBUTEROL HFA 8 GM INHALER INH ONE (18:20)
--- NOTE | 2023-07-16 18:27 | Emergency Department Note ---
Impression & Plan Vomiting, RSV (respiratory syncytial virus infection), Pneumonia, Tachycardia, Wheezing, Failure of outpatient treatment ED Provider Note NAME: KENNA DAY AGE: 67 SEX: F : 1955 ARRIVES VIA: Walk-In INFORMANT: [Patient][nursing] ED PROVIDER(S): [Jose Tomlinson MD] CHIEF COMPLAINT: Vomiting HISTORY OF PRESENT ILLNESS: The patient is a 67-year-old female who was here earlier today and diagnosed with pneumonia and RSV. She was prescribed cefdinir and doxycycline. The patient states that she had been vomiting before arrival here earlier but that seemed to clear up. When she went home, she tried to have some food and again began vomiting, she can even keep liquids down. She has a lot of pain in the upper abdomen and chest when she vomits, she thinks she has some muscle soreness. The patient does have a cough. No diarrhea. She has not yet filled her prescriptions given earlier today. PMHx/PSHx/Social Hx: See Below PHYSICAL EXAM: GENERAL: Patient is in no acute distress. HEENT: No acute trauma, normocephalic atraumatic, mucous membranes moist, no nasal congestion. NECK: No stridor, no adenopathy, no meningismus, trachea is midline. LUNGS: Scattered wheezes bilaterally, dry cough noted. Occasional crackles in the left midlung. HEART: Mildly tachycardic, regular rhythm, no murmurs. ABDOMEN: Soft, nontender, no peritonitis. EXTREMITIES: No cyanosis, full range of motion of all the joints without pain or difficulty. NEUROLOGIC: Oriented x 3, no acute motor or sensory deficits, no focal weakness. SKIN: No jaundice, no diaphoresis. DIFFERENTIAL DIAGNOSIS: Dehydration, electrolyte imbalance, anemia, cardiac ischemia, viral illness, pneumonia, among others. EMERGENCY DEPARTMENT PROCEDURES: MEDICAL DECISION MAKING: There is a slight leukocytosis, this could be consistent with the RSV and of course her pneumonia. There is a normal hemoglobin and platelet count. Sodium was slightly low at 132, likely from some dehydration. There was no renal failure. Lactic acid level was not elevated making severe sepsis less likely. ECG showed a sinus tachycardia, no obvious ischemia. Cardiac enzyme testing x 1 was not consistent with acute cardiac injury. Chest x-ray did not show pneumonia, CHF or mediastinal widening. On exam, the patient did have some wheezing in both lungs and some crackles in the left midlung. The patient was given 1 L of IV saline. She received IV Zofran for nausea. She received IV Pepcid for stomach upset. She received albuterol via [facility]. The patient presents back to the ED today with vomiting. She had been seen earlier and diagnosed with RSV and pneumonia. The pneumonia was diagnosed by chest CT. She was discharged home but has not done well at home. She cannot tolerate oral intake. The patient will be hospitalized. She requires hydration, antibiotic therapy, monitoring. I spoke with the patient and case management, the on-call hospitalist was consulted. Prior/Outside records/notes reviewed: Cardiology note from 04/18/2023 discussing her coronary artery disease and the plan moving forward. ECG per my interpretation: Indication was tachycardia. The ECG shows a sinus tachycardia with a rate of 105. There is a potential old lateral infarct. There is no ST elevation. No PVCs. The QTc is 436. Continuous Cardiac Monitoring per my interpretation: An order was placed for continuous cardiac monitoring. The monitor shows a rate of 106 with sinus tachycardia. Imaging/x-ray results per my interpretation: Chest x-ray does not show mediastinal widening, pneumonia or pneumothorax. Chronic Medical/Social conditions affecting care: Coronary artery disease. Care/Management discussed with: Case management, the on-call hospitalist. 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 Sensorineural hearing loss (SNHL) of right ear with restricted hearing of left ear Schwannoma Social History Smoking Status: Former smoker Tobacco Type: Cigarettes Second Hand Exposure: No; Do You Dip or Chew Tobacco: No; Tobacco Cessation Education Requested by Patient: No Hx Alcohol Use: Yes Alcohol type: wine Hx Substance Use: No Preferred Language: Haitian Communication Ability: Effective Science Teacher Required: No Beliefs That Will Affect Care: None marital status: Current Living Situation: Spouse Other Information That Helps Us Care for You: No Feels Safe at Home: Yes Safety Concerns: Feels Safe At This Time Assistive Devices: Glasses and Hearing Aid - Bilateral Allergies Allergies Allergy/AdvReac Type Severity Reaction Status Date / Time codeine AdvReac Severe HALLUCINATI Verified 04/18/23 16:03 ONS morphine AdvReac Severe HALLUCINATI Verified 04/18/23 16:03 ONS Home Meds Home Medications Medication Instructions Recorded Confirmed calcium carbonate 600 mg calcium 600 mg PO DAILY 12/05/19 07/16/23 (1,500 mg) tablet (Calcium) cholecalciferol (vitamin D3) 125 125 mcg PO DAILY 12/05/19 07/16/23 mcg (5,000 unit) tablet (Vitamin D3) cyanocobalamin (vitamin B-12) 0 mcg PO DAILY 12/05/19 07/16/23 1,000 mcg tablet (Vitamin B-12) fluticasone propionate 50 2 spray intranasal DAILY PRN Nasal 12/05/19 07/16/23 mcg/actuation nasal Congestion spray,suspension (Flonase Allergy Relief) fluoxetine 20 mg capsule 20 mg PO DAILY 04/12/22 07/16/23 bupropion HCl 300 mg 24 hr tablet, 300 mg PO DAILY 07/16/23 07/16/23 extended release omeprazole 20 mg capsule,delayed 20 mg PO QAM 07/16/23 07/16/23 release Previous Rx's Medication Instructions Recorded metoprolol succinate 25 mg 25 mg PO QAM #90 tabs 12/06/22 tablet,extended release 24 hr atorvastatin 80 mg tablet 80 mg PO DAILY #90 tabs 01/18/23 clopidogrel 75 mg tablet 75 mg PO QAM #90 tabs 01/18/23 semaglutide 0.25 mg or 0.5 mg (2 2 mg (2.944 mL) subcut .weekly 12 04/12/23 mg/3 mL) subcutaneous pen injector weeks #36 mL (Ozempic) furosemide 20 mg tablet 20 mg PO QAM PRN edema #90 tabs 04/19/23 cefdinir 300 mg capsule 300 mg PO BID 7 days #14 caps 07/16/23 doxycycline hyclate 100 mg capsule 100 mg PO BID 7 days #14 caps 07/16/23 ondansetron 4 mg disintegrating 4 mg PO Q6H PRN nausea and 07/16/23 tablet vomiting #15 tabs Results & Data (ED) Vital Signs Vital Signs - 24 hr 07/16/23 17:54 07/16/23 18:26 07/16/23 18:37 Temperature 37 C Temperature Source Temporal Artery Scan Pulse Rate 115 H 109 H Pulse Rate [Apical] 106 H Respiratory Rate 18 24 Respiratory Effort / Characteristics Non-Labored Respiratory Depth Normal Normal Respiratory Pattern Regular Blood Pressure 142/68 H Blood Pressure [Right Arm] 97/64 L Blood Pressure Mean 92 Blood Pressure Mean [Right Arm] 75 Blood Pressure Position [Right Arm] Lying Pulse Oximetry 95 93 Oxygen Delivery Method Room Air Room Air Sepsis Recent Fever Within 48 Hours No Sepsis New/Unexplained Change in Mental Status N/A Sepsis Action Taken by Nursing No Action Required 07/16/23 18:42 07/16/23 18:45 07/16/23 19:57 Temperature Temperature Source Pulse Rate 109 H 106 H Pulse Rate [Apical] 107 H Respiratory Rate 28 H 26 H 24 Respiratory Effort / Characteristics Respiratory Depth Normal Respiratory Pattern Blood Pressure 107/66 98/66 L Blood Pressure [Right Arm] 103/64 Blood Pressure Mean 71 69 Blood Pressure Mean [Right Arm] 77 Blood Pressure Position [Right Arm] Pulse Oximetry 92 93 95 Oxygen Delivery Method Room Air Room Air Room Air Sepsis Recent Fever Within 48 Hours Sepsis New/Unexplained Change in Mental Status Sepsis Action Taken by Nursing 07/16/23 20:41 Temperature Temperature Source Pulse Rate Pulse Rate [Apical] 108 H Respiratory Rate 22 Respiratory Effort / Characteristics Respiratory Depth Normal Respiratory Pattern Blood Pressure Blood Pressure [Right Arm] 115/74 Blood Pressure Mean Blood Pressure Mean [Right Arm] 87 Blood Pressure Position [Right Arm] Pulse Oximetry 92 Oxygen Delivery Method Room Air Sepsis Recent Fever Within 48 Hours Sepsis New/Unexplained Change in Mental Status Sepsis Action Taken by Longterm Medications Current Medication List: was personally reviewed by me Laboratory Data Attestation: I reviewed the patient's lab results. 07/16/23 18:33 07/16/23 18:33 Lab Results 07/16/23 Range/Units 18:33 WBC 10.95 H (4.8-10.8) K/ul RBC 4.44 (4.20-5.40) M/uL Hgb 13.2 (12.0-16.0) g/dl Hct 39.9 (37.0-47.0) % MCV 89.9 (80.0-100.0) fL MCH 29.7 (25.0-34.0) pg MCHC 33.1 (32.0-36.0) g/dL RDW Std Deviation 41.4 (36.4-46.3) fL RDW Coeff of Isha 12.6 (11.5-14.5) % Plt Count 201 (130-400) K/uL MPV 9.4 (9.4-12.4) fL Immature Gran % (Auto) 0.6 % Neut % (Auto) 85.5 % Lymph % (Auto) 5.6 % [place] % (Auto) 7.6 % Eos % (Auto) 0.3 % Baso % (Auto) 0.4 % Neut # (Auto) 9.37 H (1.40-6.50) K/uL Lymph # (Auto) 0.61 L (1.20-3.40) K/uL [place] # (Auto) 0.83 H (0.11-0.59) K/uL Eos # (Auto) 0.03 (0.00-0.50) K/uL Baso # (Auto) 0.04 (0.00-0.20) K/uL Immature Gran # (Auto) 0.07 (0.01-0.20) K/uL Sodium 132 L (136-145) mmol/L Potassium 4.2 (3.5-5.1) mmol/L Chloride 102 (98-107) mmol/L Carbon Dioxide 21 (21-32) mmol/L Anion Gap 9 (3-11) BUN 20 (6-23) mg/dl Creatinine 1.04 (0.6-1.2) mg/dl Est Cr Clr Drug Dosing 59.9 ml/min Est GFR ( Amer) 65.3 ml/min Est GFR (Non-Af Amer) 56.3 ml/min BUN/Creatinine Ratio 19.2 (10-20) Glucose 135 H (70-99(Fasting)) mg/dl Lactate 1.4 (0.4-2.0) mmol/L Calcium 8.8 (8.6-10.3) mg/dl Magnesium 1.8 (1.7-2.4) mg/dl Troponin I High Sens 3.4 (0-14) pg/ml Administered Medications Enoxaparin Sodium (Enoxaparin Inj 40 Mg/0.4 Ml Syr) 40 mg SQ PM DANO Stop: 08/15/23 22:43 Last Admin: 07/17/23 00:03 Dose: 40 mg Documented By: CINDY Sodium Chloride (Nss) 1,000 mls @ 100 mls/hr IV .Q10H DANO Stop: 08/15/23 22:43 Last Admin: 07/16/23 22:50 Dose: 100 mls/hr Documented By: CINDY Doxycycline Hyclate 100 mg/ (Dextrose) 100 mls @ 50 mls/hr IV Q12H DANO Stop: 07/24/23 00:00 Last Admin: 07/17/23 00:02 Dose: 50 mls/hr Documented By: CINDY Discontinued Medications Albuterol (Albuterol Hfa 8 Gm Inhaler) 2 puffs INH NOW ONE Stop: 07/16/23 18:21 Last Admin: 07/16/23 18:32 Dose: 2 puffs Documented By: SHAW Sodium Chloride (Nss) 1,000 mls @ 999 mls/hr IV .Q1H1M ONE Stop: 07/16/23 19:10 Last Infusion: 07/16/23 19:33 Dose: Infused Documented By: Admin: 07/16/23 18:30 Dose: 999 mls/hr Documented By: SHAW Famotidine (Pepcid 20mg Iv Push) 20 mg in 5 mls @ 2.5 mls/min IV NOW STA Stop: 07/16/23 18:21 Last Admin: 07/16/23 18:32 Dose: 2.5 mls/min Documented By: SHAW Menthol (Cough Drop (Sugar Free) Wei 24 Wei/1 Box) Confirm Administered Dose 24 wei BUCCAL .STK-MED ONE Stop: 07/16/23 23:58 Last Admin: 07/17/23 00:04 Dose: 24 wei Documented By: CINDY Ondansetron HCl (Ondansetron Inj 2 Mg/Ml 2 Ml Vial) 4 mg IV NOW STA Stop: 07/16/23 18:11 Last Admin: 07/16/23 18:32 Dose: 4 mg Documented By: SHAW Discharge Plan Visit Data Chief Complaint: Vomiting Stated Complaint: VOMITING ED Provider: Jose Tomlinson Discharge Problem: Vomiting, RSV (respiratory syncytial virus infection), Pneumonia, Tachycardia, Wheezing, Failure of outpatient treatment Patient Disposition: Admitted As Inpatient Condition: Fair Discharge Instructions Interventions: ED Discharge Assessment Last Done: 07/16/23 22:24 Discharge Problem: Vomiting Qualifiers: Vomiting type: unspecified Nausea presence: with nausea Qualified Code(s): R 11.2 - Nausea with vomiting, unspecified Pneumonia Qualifiers: Pneumonia type: due to unspecified organism Laterality: left Lung location: u nspecified part of lung Qualified Code(s): J18.9 - Pneumonia, unspecified organism
[2023-07-16 18:55] LABS: Basophils # (auto) 0.04 K/uL (0.00-0.20); Basophils % (auto) 0.4 %; Eosinophils # (auto) 0.03 K/uL (0.00-0.50); Eosinophils % (auto) 0.3 %; Hematocrit (blood only) 39.9 % (37.0-47.0); Hemoglobin 13.2 g/dl (12.0-16.0); Immature Granulocytes # (auto) 0.07 K/uL (0.01-0.20); Immature Granulocytes % (auto) 0.6 %; Lymphocytes # (auto) 0.61 K/uL (1.20-3.40); Lymphocytes % (auto) 5.6 %; Mean Corpuscular Hemoglobin 29.7 pg (25.0-34.0); Mean Corpuscular Hgb Conc 33.1 g/dL (32.0-36.0); Mean Corpuscular Volume 89.9 fL (80.0-100.0); Mean Platelet Volume 9.4 fL (9.4-12.4); Monocytes # (auto) 0.83 K/uL (0.11-0.59); Monocytes % (auto) 7.6 %; Neutrophils # (auto) 9.37 K/uL (1.40-6.50); Neutrophils % (auto) 85.5 %; Platelet Count 201 K/uL (130-400); RDW Coefficient of Variation 12.6 % (11.5-14.5); RDW Standard Deviation 41.4 fL (36.4-46.3); Red Blood Count 4.44 M/uL (4.20-5.40); White Blood Count 10.95 K/ul (4.8-10.8)
[2023-07-16 19:15] LABS: BUN Creatinine Ratio 19.2 (10-20); Calcium 8.8 mg/dl (8.6-10.3); Creatinine Clr Calc Pharmacy 59.9 ml/min; Est GFR (African American) 65.3 ml/min; Est GFR (Non-African American) 56.3 ml/min; Magnesium 1.8 mg/dl (1.7-2.4); Potassium 4.2 mmol/L (3.5-5.1)
[2023-07-16 19:21] LABS: Troponin I High Sensitivity 3.4 pg/ml (0-14)
--- NOTE | 2023-07-16 21:04 | History & Physical Report ---
Date of Service July 16, 2023 Assessment & Plan (1) LLL pneumonia: Plan: 67-year-old female with past medical significant for hyperlipidemia, prediabetes, history of CAD, hypertension, GERD, overactive bladder, left-sided vestibular schwannoma s/p SRS, GERD anxiety disorder, obesity, depression, presents with headache, body aches, generalized weakness, sore throat, cough, chest pain from coughing, shortness of breath and was in the ER earlier in the day and found to be RSV positive and also pneumonia in the CAT scan and discharged on cefdinir and doxycycline but comes back because after going home had lot of nausea and vomiting could not take anything p.o. Currently resting comfortably. Denies abdominal pain. No diarrhea. Micturating okay. Hemodynamically stable. Left lower lobe pneumonia On the CAT scan done earlier in the day Failed outpatient treatment as patient cannot take p.o. from nausea/ vomiting Started IV Rocephin and doxycycline IV fluids Close monitor RSV Supportive care Nausea and vomiting Antiemetics and IV fluids Droplet precautions Prediabetes Will follow HbA1c levels History of CAD On Plavix, statin, beta-nida Hypertension On metoprolol GERD Omeprazole Depression/anxiety On bupropion DVT prophylaxis Lovenox Disposition Medical floor Full code History of Present Illness Chief Complaint: Nausea and vomiting and shortness of breath Primary Care Provider: Magui Raygoza, 67-year-old female with past medical history significant for hyperlipidemia, prediabetes, history of CAD, hypertension, GERD, overactive bladder, left-sided vestibular schwannoma s/p SRS, GERD anxiety disorder, obesity, depression, presents with headache, body aches, generalized weakness, sore throat, cough, chest pain from coughing, shortness of breath and was in the ER earlier in the day and found to be RSV positive and also pneumonia in the CAT scan and d ischarged on cefdinir and doxycycline but comes back because after going home had lot of nausea and vomiting could not take anything p.o. Currently resting comfortably. Denies abdominal pain. No diarrhea. Micturating okay. Hemodynamically stable. Past med history. As mentioned above Past surgical history. augmentation of facial bones. Right carpal tunnel surgery. Cholecystectomy. Colonoscopy. Foot surgeries. Ligation of oviducts. Reduction of breast bilateral. Appendectomy. Bilateral removal of eyelid lesions. Bilateral cataracts. Repair of bladder defect. Repair of brow ptosis. Bilateral blepharoplasty upper eyelid revised. Total hysterectomy Social history. . Quit smoking 2018. Smoked half pack a day for 20 years. Alcohol occasional. No drug use. Family history. Aunt has brain cancer. Mother had COPD, diabetes, heart disorder, thyroid disorder. Father had prostate cancer. Diabetes. Sister has thyroid disorder Allergies Allergy/AdvReac Type Severity Reaction Status Date / Time codeine AdvReac Severe HALLUCINATI Verified 04/18/23 16:03 ONS morphine AdvReac Severe HALLUCINATI Verified 04/18/23 16:03 ONS Home Medications Medication Instructions Recorded Confirmed Type calcium carbonate 600 mg calcium 600 mg PO DAILY 12/05/19 07/16/23 History (1,500 mg) tablet (Calcium) cholecalciferol (vitamin D3) 125 125 mcg PO DAILY 12/05/19 07/16/23 History mcg (5,000 unit) tablet (Vitamin D3) cyanocobalamin (vitamin B-12) 0 mcg PO DAILY 12/05/19 07/16/23 History 1,000 mcg tablet (Vitamin B-12) fluticasone propionate 50 2 spray intranasal DAILY PRN Nasal 12/05/19 07/16/23 History mcg/actuation nasal Congestion spray,suspension (Flonase Allergy Relief) fluoxetine 20 mg capsule 20 mg PO DAILY 04/12/22 07/16/23 History metoprolol succinate 25 mg 25 mg PO QAM #90 tabs 12/06/22 07/16/23 Rx tablet,extended release 24 hr atorvastatin 80 mg tablet 80 mg PO DAILY #90 tabs 01/18/23 07/16/23 Rx clopidogrel 75 mg tablet 75 mg PO QAM #90 tabs 01/18/23 07/16/23 Rx semaglutide 0.25 mg or 0.5 mg (2 2 mg (2.944 mL) subcut .weekly 12 04/12/23 07/16/23 Rx mg/3 mL) subcutaneous pen injector weeks #36 mL (Ozempic) furosemide 20 mg tablet 20 mg PO QAM PRN edema #90 tabs 04/19/23 07/16/23 Rx bupropion HCl 300 mg 24 hr tablet, 300 mg PO DAILY 07/16/23 07/16/23 History extended release cefdinir 300 mg capsule 300 mg PO BID 7 days #14 caps 07/16/23 07/16/23 Rx doxycycline hyclate 100 mg capsule 100 mg PO BID 7 days #14 caps 07/16/23 07/16/23 Rx omeprazole 20 mg capsule,delayed 20 mg PO QAM 07/16/23 07/16/23 History release ondansetron 4 mg disintegrating 4 mg PO Q6H PRN nausea and 07/16/23 07/16/23 Rx tablet vomiting #15 tabs 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 Sensorineural hearing loss (SNHL) of right ear with restricted hearing of left ear Schwannoma Social History Smoking Status: Former smoker Tobacco Type: Cigarettes Second Hand Exposure: No; Do You Dip or Chew Tobacco: No; Tobacco Cessation Education Requested by Patient: No Hx Alcohol Use: Yes Alcohol type: wine Hx Substance Use: No Preferred Language: Mongolian Communication Ability: Effective Knitter Helper Required: No Beliefs That Will Affect Care: None marital status: Current Living Situation: Spouse Other Information That Helps Us Care for You: No Feels Safe at Home: Yes Safety Concerns: Feels Safe At This Time Assistive Devices: Glasses and Hearing Aid - Bilateral Review of Systems Review of Systems: All systems reviewed & are unremarkable except as noted in HPI & below Physical Exam Physical Exam: General- Not in distress Head- atraumatic Eyes- PERRL. ENT- oropharynx clear Neck- supple, no JVD. Lungs- clear to auscultation no wheezing or crackles. Heart- regular rhythm; no murmur, no gallop. Abdomen- normal bowel sounds, soft, nontender, no distension. Extremities- no pretibial edema, no erythema seen Neuro- alert, oriented x 3; PERRL no facial palsy; no dysarthria; moves extremities. Skin- warm & dry Results & Data Results & Data Vital Signs (Past 12 Hours) Vital Signs Temp Pulse Pulse Resp BP BP Pulse Ox 07/16/23 20:41 108 H 22 115/74 92 07/16/23 19:57 107 H 24 103/64 95 07/16/23 18:45 106 H 26 H 98/66 L 93 07/16/23 18:42 109 H 28 H 107/66 92 07/16/23 18:37 106 H 24 97/64 L 93 07/16/23 18:26 109 H 07/16/23 17:54 37 C 115 H 18 142/68 H 95 O2 Del Method 07/16/23 20:41 Room Air 07/16/23 19:57 Room Air 07/16/23 18:45 Room Air 07/16/23 18:42 Room Air 07/16/23 18:37 Room Air 07/16/23 18:26 07/16/23 17:54 Room Air Diagnostic Findings Laboratory Results WBC 10.95 K/ul (4.8-10.8) H 07/16/23 18:33 RBC 4.44 M/uL (4.20-5.40) 07/16/23 18:33 Hgb 13.2 g/dl (12.0-16.0) 07/16/23 18:33 Hct 39.9 % (37.0-47.0) 07/16/23 18:33 MCV 89.9 fL (80.0-100.0) 07/16/23 18:33 MCH 29.7 pg (25.0-34.0) 07/16/23 18:33 MCHC 33.1 g/dL (32.0-36.0) 07/16/23 18:33 RDW Std Deviation 41.4 fL (36.4-46.3) 07/16/23 18:33 RDW Coeff of Isha 12.6 % (11.5-14.5) 07/16/23 18:33 Plt Count 201 K/uL (130-400) 07/16/23 18:33 MPV 9.4 fL (9.4-12.4) 07/16/23 18:33 Immature Gran % (Auto) 0.6 % 07/16/23 18:33 Neut % (Auto) 85.5 % 07/16/23 18:33 Lymph % (Auto) 5.6 % 07/16/23 18:33 [place] % (Auto) 7.6 % 07/16/23 18:33 Eos % (Auto) 0.3 % 07/16/23 18:33 Baso % (Auto) 0.4 % 07/16/23 18:33 Neut # (Auto) 9.37 K/uL (1.40-6.50) H 07/16/23 18:33 Lymph # (Auto) 0.61 K/uL (1.20-3.40) L 07/16/23 18:33 [place] # (Auto) 0.83 K/uL (0.11-0.59) H 07/16/23 18:33 Eos # (Auto) 0.03 K/uL (0.00-0.50) 07/16/23 18:33 Baso # (Auto) 0.04 K/uL (0.00-0.20) 07/16/23 18:33 Immature Gran # (Auto) 0.07 K/uL (0.01-0.20) 07/16/23 18:33 Sodium 132 mmol/L (136-145) L 07/16/23 18:33 Potassium 4.2 mmol/L (3.5-5.1) 07/16/23 18:33 Chloride 102 mmol/L (98-107) 07/16/23 18:33 Carbon Dioxide 21 mmol/L (21-32) 07/16/23 18:33 Anion Gap 9 (3-11) 07/16/23 18:33 BUN 20 mg/dl (6-23) 07/16/23 18:33 Creatinine 1.04 mg/dl (0.6-1.2) 07/16/23 18:33 Est Cr Clr Drug Dosing 59.9 ml/min 07/16/23 18:33 Est GFR ( Amer) 65.3 ml/min 07/16/23 18:33 Est GFR (Non-Af Amer) 56.3 ml/min 07/16/23 18:33 BUN/Creatinine Ratio 19.2 (10-20) 07/16/23 18:33 Glucose 135 mg/dl (70-99(Fasting)) H 07/16/23 18:33 Lactate 1.4 mmol/L (0.4-2.0) 07/16/23 18:33 Calcium 8.8 mg/dl (8.6-10.3) 07/16/23 18:33 Magnesium 1.8 mg/dl (1.7-2.4) 07/16/23 18:33 Troponin I High Sens 3.4 pg/ml (0-14) 07/16/23 18:33 ECG Additional Comments: ECG. Sinus tachycardia rate of 105. Left axis deviation. No significant graham ge was found. Code Status & VTE Plan VTE Prophylaxis Plan VTE Prophylaxis will be ordered: Yes
[2023-07-16] MEDS ORDERED: FUROSEMIDE 20 MG TAB PO PRN (22:44)
[2023-07-16] MEDS ORDERED: ONDANSETRON INJ 2 MG/ML 2 ML VIAL IV PRN (22:44)
[2023-07-16] MEDS ORDERED: ALBUTEROL HFA 8 GM INHALER INH PRN (22:44)
[2023-07-16] MEDS ORDERED: FLUTICASONE PROPIONATE NA SPR 16 GM BTL PRN (22:44)
[2023-07-16] MEDS: SODIUM CHLORIDE 0.9% 1,000 ML IV SCH (22:50)
[2023-07-16] MEDS ORDERED: COUGH DROP (SUGAR FREE) LOZ 24 LOZ/1 BOX BUCCAL ONE (23:57)
[2023-07-17] MEDS: DOXYCYCLINE HYCLATE 100 MG in DEXTROSE 5% MINI-B 100 ML IV SCH ×3 (00:02→23:27)
[2023-07-17] MEDS: ENOXAPARIN INJ 40 MG/0.4 ML SYR SQ SCH ×2 (00:03→20:49)
[2023-07-17 06:38] LABS: Basophils # (auto) 0.04 K/uL (0.00-0.20); Basophils % (auto) 0.4 %; Eosinophils # (auto) 0.01 K/uL (0.00-0.50); Eosinophils % (auto) 0.1 %; Hematocrit (blood only) 35.4 % (37.0-47.0); Hemoglobin 12.2 g/dl (12.0-16.0); Immature Granulocytes # (auto) 0.04 K/uL (0.01-0.20); Immature Granulocytes % (auto) 0.4 %; Lymphocytes # (auto) 0.93 K/uL (1.20-3.40); Mean Corpuscular Hemoglobin 30.3 pg (25.0-34.0); Mean Corpuscular Hgb Conc 34.5 g/dL (32.0-36.0); Mean Corpuscular Volume 88.1 fL (80.0-100.0); Mean Platelet Volume 9.7 fL (9.4-12.4); Monocytes # (auto) 1.22 K/uL (0.11-0.59); Monocytes % (auto) 11.8 %; Neutrophils # (auto) 8.07 K/uL (1.40-6.50); Neutrophils % (auto) 78.3 %; Platelet Count 191 K/uL (130-400); RDW Coefficient of Variation 12.7 % (11.5-14.5); RDW Standard Deviation 41.1 fL (36.4-46.3); Red Blood Count 4.02 M/uL (4.20-5.40); White Blood Count 10.31 K/ul (4.8-10.8)
[2023-07-17 06:50] LABS: BUN Creatinine Ratio 18.8 (10-20); Calcium 8.9 mg/dl (8.6-10.3); Creatinine Clr Calc Pharmacy 78.1 ml/min; Est GFR (African American) 89.7 ml/min; Est GFR (Non-African American) 77.4 ml/min; Magnesium 1.8 mg/dl (1.7-2.4); Potassium 3.9 mmol/L (3.5-5.1)
[2023-07-17 07:37] LABS: Estimated Average Glucose 123 mg/dl; Hemoglobin A1C 5.9 % (4.5-5.6)
[2023-07-17] MEDS: ATORVASTATIN 40 MG TAB PO SCH (09:05)
[2023-07-17] MEDS: CLOPIDOGREL BISULFATE 75 MG TAB PO SCH (09:05)
[2023-07-17] MEDS: METOPROLOL SUCC 25MG EXT REL TAB PO SCH (09:05)
[2023-07-17] MEDS: CALCIUM CARBONATE 1250MG TAB PO SCH (09:05)
[2023-07-17] MEDS: buPROPion XL 300 MG TABCR PO SCH (09:05)
[2023-07-17] MEDS: PANTOprazole 40 MG TAB PO SCH (09:05)
[2023-07-17] MEDS: CHOLECALCIFEROL 5,000 UNITS 125 MCG TAB PO SCH (09:05)
[2023-07-17] MEDS: FLUoxetine HCL 20 MG CAP PO SCH (09:05)
[2023-07-17] MEDS: cefTRIAXone SODIUM 2,000 MG in DEXTROSE 5 % MINI-B 50 ML IV SCH (09:09)
[2023-07-17] MEDS ORDERED: FLUTICASONE PROPIONATE NA SPR 16 GM BTL NAE SCH (09:45)
[2023-07-17] MEDS: SODIUM CHLORIDE 0.9% 1,000 ML IV SCH ×2 (10:36→22:21)
--- NOTE | 2023-07-17 12:57 | Hospitalist Progress Note ---
Date of Service July 17, 2023 Assessment & Plan (1) LLL pneumonia: Plan: 67-year-old female with past medical significant for hyperlipidemia, prediabetes, history of CAD, hypertension, GERD, overactive bladder, left-sided vestibular schwannoma s/p SRS, GERD anxiety disorder, obesity, depression, presents with headache, body aches, generalized weakness, sore throat, cough, chest pain from coughing, shortness of breath and was in the ER earlier in the day and found to be RSV positive and also pneumonia in the CAT scan and discharged on cefdinir and doxycycline but comes back because after going home had lot of nausea and vomiting could not take anything p.o. Left lower lobe pneumonia On the CAT scan done earlier in the day Failed outpatient treatment as patient cannot take p.o. from nausea/ vomiting Started IV Rocephin and doxycycline IV fluids Add muccinex, ISP, flutter valve encouraged use of prn albuterol for sob/wheezing/coughing Close monitor RSV Supportive care Nausea and vomiting Antiemetics and IV fluids Droplet precautions Prediabetes a1c 5.9 pt aware will follow up with PCP History of CAD On Plavix, statin, beta-nida chronic, stable Hypertension On metoprolol chronic, stable GERD Omeprazole Depression/anxiety On bupropion DVT prophylaxis Lovenox Disposition Medical floor, not yet medically stable for d/c, d/c to home when able Full code Pt was seen and examined in collaboration with Dr. chiang, please see addendum A total of 56 minutes was spent coordinating, documenting, and providing care for this patient excluding time spent in the performance of separately billed services. This included personally viewing all current laboratories and imaging studies, medication reconciliation, outpatient chart review, and discussion with specialists. CBC, BMP ordered for a.m. Admission and Anticipated Discharge Date Admission Date: July 16, 2023 Supervising Physician Co-Signing Physician Notes I have seen and discussed the case with the collaborating KEITH. I agree with the above PN. I have reviewed and confirmed the patients medical history, the fi ndings on physical examination, and the patients diagnosis and treatment plan with Bridget PARKER and agree with the information documented. In short, Ms. Gonzales is admitted for management of RSV and superimposed CAP. Patient reports feeling much improved. Exam unremarkable, no resp distress on room air--+cough with deep inhalation. Plan for continue abx, pulm toilet. If able to tolerate po regimen will consider transitioning and d/c tomorrow. rest of plan as above Subjective Pt was seen and examined in room 377-2. Follow up PNA and RSV. She continues to have productive cough. She is coughing so much her chest hurts when she goes. She denies any hemoptysis or SOB at rest. She denies any f/c/s, dizziness, lightheaded, n/v/d, abd pain. Overall poor appetite due to not feeling well. Review of Systems Review of Systems: All systems reviewed & are unremarkable except as noted in HPI & below Physical Exam Physical Exam: Gen: WD/WN, ill appearing, lying in bed, NAD, A&O x3 HEENT: Normocephalic, atraumatic, conjunctivae moist, sclerae anicteric, mucous membranes moist. Lung: Clear to Auscultation bilaterally, no wheezes/rales/rhonchi Heart: Regular rate, regular rhythm, no murmurs, rubs, or gallops Abdomen: Soft, NT, ND +BS x 4 Extremities: No edema Skin: Warm, no rash, negative turgor. Results & Data Results & Data Vital Signs (Past 12 Hours) Vital Signs Temp Pulse Resp BP Pulse Ox O2 Del Method 07/17/23 10:42 Room Air 07/17/23 07:25 36.9 C 99 H 16 107/70 93 Room Air Laboratory Results Short CBC 07/16/23 07/17/23 Range/Units 18:33 05:48 WBC 10.95 H 10.31 (4.8-10.8) K/ul Hgb 13.2 12.2 (12.0-16.0) g/dl Hct 39.9 35.4 L (37.0-47.0) % Plt Count 201 191 (130-400) K/uL BMP 07/16/23 07/17/23 18:33 05:48 Sodium 132 L 134 L Potassium 4.2 3.9 Chloride 102 104 Carbon Dioxide 21 24 BUN 20 15 Creatinine 1.04 0.80 Glucose 135 H 128 H Calcium 8.8 8.9 I have independently reviewed and interpreted patient's labs including CBC, BMP, A1C, mag. Medications Administered Current Inpatient Medications Albuterol (Albuterol Hfa 8 Gm Inhaler) 2 puffs INH Q4H PRN PRN Reason: Shortness Of Breath Or Wheezin Stop: 08/15/23 22:43 Atorvastatin Calcium (Atorvastatin 40 Mg Tab) 80 mg PO DAILY [facility] Stop: 08/16/23 08:59 Last Admin: 07/17/23 09:05 Dose: 80 mg Bupropion HCl (Bupropion Xl 300 Mg Tabcr) 300 mg PO DAILY [facility] Stop: 08/16/23 08:59 Last Admin: 07/17/23 09:05 Dose: 300 mg Calcium Carbonate (Calcium Carbonate 1250mg Tab) 1,250 mg PO DAILY [facility] Stop: 08/16/23 08:59 Last Admin: 07/17/23 09:05 Dose: 1,250 mg Clopidogrel Bisulfate (Clopidogrel Bisulfate 75 Mg Tab) 75 mg PO QAM [facility] Stop: 08/16/23 08:59 Last Admin: 07/17/23 09:05 Dose: 75 mg Enoxaparin Sodium (Enoxaparin Inj 40 Mg/0.4 Ml Syr) 40 mg SQ PM [facility] Stop: 08/15/23 22:43 Last Admin: 07/17/23 00:03 Dose: 40 mg Fluoxetine HCl (Fluoxetine Hcl 20 Mg Cap) 20 mg PO DAILY [facility] Stop: 08/16/23 08:59 Last Admin: 07/17/23 09:05 Dose: 20 mg Fluticasone Propionate (Fluticasone Propionate Na Spr 16 Gm Btl) 2 sprays TIMOTHY DAILY [facility] Stop: 08/16/23 09:44 Last Admin: 07/17/23 10:33 Dose: 2 sprays Furosemide (Furosemide 20 Mg Tab) 20 mg PO QAM PRN PRN Reason: edema Stop: 08/15/23 22:43 Guaifenesin (Guaifenesin 600 Mg Tabcr) 1,200 mg PO Q12 [facility] Stop: 08/16/23 20:59 Sodium Chloride (Nss) 1,000 mls @ 100 mls/hr IV .Q10H [facility] Stop: 08/15/23 22:43 Last Admin: 07/17/23 10:36 Dose: 100 mls/hr Ceftriaxone Sodium 2,000 mg/ (Dextrose) 50 mls @ 100 mls/hr IV DAILY [facility]; Protocol Stop: 07/24/23 08:59 Last Infusion: 07/17/23 10:29 Dose: Infused Doxycycline Hyclate 100 mg/ (Dextrose) 100 mls @ 50 mls/hr IV Q12H [facility] Stop: 07/24/23 00:00 Last Admin: 07/17/23 12:02 Dose: 50 mls/hr Metoprolol Succinate (Metoprolol Succ 25mg Ext Rel Tab) 25 mg PO QAM [facility] Stop: 08/16/23 08:59 Last Admin: 07/17/23 09:05 Dose: 25 mg Ondansetron HCl (Ondansetron Inj 2 Mg/Ml 2 Ml Vial) 4 mg IV Q6H PRN PRN Reason: Nausea Stop: 08/15/23 22:43 Pantoprazole Sodium (Pantoprazole 40 Mg Tab) 40 mg PO [facility] Stop: 08/16/23 08:59 Last Admin: 07/17/23 09:05 Dose: 40 mg Vitamin D (Cholecalciferol 5,000 Units 125 Mcg Tab) 5,000 units PO DAILY [facility] Stop: 08/16/23 08:59 Last Admin: 07/17/23 09:05 Dose: 5,000 units
--- NOTE | 2023-07-17 16:25 | Electrocardiogram Report ---
Test Reason : Blood Pressure : / mmHG Vent. Rate : 105 BPM Atrial Rate : 105 BPM P-R Int : 164 ms QRS Dur : 086 ms QT Int : 330 ms P-R-T Axes : 056 -45 052 degrees QTc Int : 436 ms Sinus tachycardia Left axis deviation Low voltage QRS Possible Anterolateral infarct (cited on or before 16-JUL-2023) Abnormal ECG When compared with ECG of 16-JUL-2023 10:53, No significant change was found Confirmed by Eder Hillman ([id number]) on 07/17/2023 4:24:56 PM Referred By: REFERRED SELF Confirmed By:Jorge Hillman
[2023-07-17 19:25] LABS: A calco-baum cmplx NotReported Not Detected (NotDetected); Bact fragilis Not Reported Not Detected (NotDetected); Blood Culture Id Panel See PCR Comment (NotDetected); C auris Not Reported Not Detected (NotDetected); Calbicans Not Reported Not Detected (NotDetected); Candida glabrata Not Reported Not Detected (NotDetected); Candida krusei Not Reported Not Detected (NotDetected); Cneoformans/gatti Not Reported Not Detected (NotDetected); Cparapsilosis Not Reported Not Detected (NotDetected); E cloacae compx Not Reported Not Detected (NotDetected); Efaecalis Not Reported Not Detected (NotDetected); Efaecium Not Reported Not Detected (NotDetected); Enterobacterales Not Reported Not Detected (NotDetected); Escherichia coli Not Reported Not Detected (NotDetected); H influenzae Not Reported Not Detected (NotDetected); K aerogenes Not Reported Not Detected (NotDetected); Koxytoca Not Reported Not Detected (NotDetected); Kpneumoniae grp Not Reported Not Detected (NotDetected); Lmonocyt Not Reported Not Detected (NotDetected); N meningitidis Not Reported Not Detected (NotDetected); P aeruginosa Not Reported Not Detected (NotDetected); Proteus spp Not Reported Not Detected (NotDetected); Salmonella spp Not Reported Not Detected (NotDetected); Smarcescens Not Reported Not Detected (NotDetected); Staph lugdunensis Not Reported Not Detected (NotDetected); Staph spp. Not Reported DETECTED (NotDetected); Staphaureus Not Reported Not Detected (NotDetected); Staphepi Not Reported DETECTED (NotDetected); Staphylococcus epidermidis DETECTED (NotDetected); Staphylococcus spp. DETECTED (NotDetected); Stenmaltophilia Not Reported Not Detected (NotDetected); Strep agal(GrpB) Not Reported Not Detected (NotDetected); Strep pneum Not Reported Not Detected (NotDetected); Strep pyog (GrpA) Not Reported Not Detected (NotDetected); Strep spp Not Reported Not Detected (NotDetected); mecAC Resistant Gene Not Detected (NotDetected)
[2023-07-17] MEDS: guaiFENesin 600 MG TABCR PO SCH (20:48)
[2023-07-17] MEDS: FLUTICASONE PROPIONATE NA SPR 16 GM BTL NAE SCH (23:28)
[2023-07-17] MEDS: ACETAMINOPHEN 325 MG TAB PO PRN (23:28)
[2023-07-18 08:12] LABS: BUN Creatinine Ratio 16.7 (10-20); Calcium 9.6 mg/dl (8.6-10.3); Creatinine Clr Calc Pharmacy 86.8 ml/min; Est GFR (African American) 101.9 ml/min; Est GFR (Non-African American) 87.9 ml/min
[2023-07-18] MEDS: PANTOprazole 40 MG TAB PO SCH (08:15)
[2023-07-18] MEDS: guaiFENesin 600 MG TABCR PO SCH ×2 (08:15→21:10)
[2023-07-18] MEDS: METOPROLOL SUCC 25MG EXT REL TAB PO SCH (08:15)
[2023-07-18] MEDS: FLUoxetine HCL 20 MG CAP PO SCH (08:16)
[2023-07-18] MEDS: CHOLECALCIFEROL 5,000 UNITS 125 MCG TAB PO SCH (08:16)
[2023-07-18] MEDS: CLOPIDOGREL BISULFATE 75 MG TAB PO SCH (08:16)
[2023-07-18] MEDS: buPROPion XL 300 MG TABCR PO SCH (08:17)
[2023-07-18] MEDS: ATORVASTATIN 40 MG TAB PO SCH (08:17)
[2023-07-18] MEDS: CALCIUM CARBONATE 1250MG TAB PO SCH (08:17)
[2023-07-18 08:19] LABS: Hematocrit (blood only) 41.7 % (37.0-47.0); Hemoglobin 13.6 g/dl (12.0-16.0); Mean Corpuscular Hemoglobin 29.8 pg (25.0-34.0); Mean Corpuscular Hgb Conc 32.6 g/dL (32.0-36.0); Mean Corpuscular Volume 91.2 fL (80.0-100.0); Mean Platelet Volume 9.8 fL (9.4-12.4); Platelet Count 182 K/uL (130-400); RDW Coefficient of Variation 12.7 % (11.5-14.5); RDW Standard Deviation 41.8 fL (36.4-46.3); Red Blood Count 4.57 M/uL (4.20-5.40); White Blood Count 7.41 K/ul (4.8-10.8)
[2023-07-18] MEDS: cefTRIAXone SODIUM 2,000 MG in DEXTROSE 5 % MINI-B 50 ML IV SCH (09:01)
[2023-07-18] MEDS: SODIUM CHLORIDE 0.9% 1,000 ML IV SCH (10:32)
[2023-07-18] MEDS: DOXYCYCLINE HYCLATE 100 MG in DEXTROSE 5% MINI-B 100 ML IV SCH ×2 (11:15→23:46)
[2023-07-18] MEDS: SODIUM CHLORIDE 0.65% NA SOLN 45 ML (OCEAN) SCH ×2 (11:15→21:11)
[2023-07-18] MEDS: SACCHAROMYCES BOULARDII 250 MG CAP PO SCH (12:44)
--- NOTE | 2023-07-18 14:30 | Hospitalist Progress Note ---
Date of Service July 18, 2023 Assessment & Plan (1) LLL pneumonia: Plan: 67-year-old female with past medical significant for hyperlipidemia, prediabetes, history of CAD, hypertension, GERD, overactive bladder, left-sided vestibular schwannoma s/p SRS, GERD anxiety disorder, obesity, depression, presents with headache, body aches, generalized weakness, sore throat, cough, chest pain from coughing, shortness of breath and was in the ER earlier in the day and found to be RSV positive and also pneumonia in the CAT scan and discharged on cefdinir and doxycycline but comes back because after going home had lot of nausea and vomiting could not take anything p.o. Left lower lobe pneumonia On the CAT scan done earlier in the day Failed outpatient treatment as patient cannot take p.o. from nausea/ vomiting Started IV Rocephin and doxycycline Day #2 Pt tolerating diet, will d/c IV fluids muccinex, ISP, flutter valve, ocean nasal spray encouraged use of prn albuterol for sob/wheezing/coughing Close monitor RSV Supportive care Nausea and vomiting Antiemetics and IV fluids Droplet precautions Diarrhea daily probiotic, check stool culture Prediabetes a1c 5.9 pt aware will follow up with PCP History of CAD On Plavix, statin, beta-nida chronic, stable Hypertension On metoprolol chronic, stable GERD Omeprazole Depression/anxiety On bupropion DVT prophylaxis Lovenox Disposition Medical floor, not yet medically stable for d/c, d/c to home when able Full code Pt was seen and examined in collaboration with Dr. chiang, please see addendum A total of 49 minutes was spent coordinating, documenting, and providing care for this patient excluding time spent in the performance of separately billed services. This included personally viewing all current laboratories and imaging studies, medication reconciliation, outpatient chart review, and discussion with specialists. Mag ANCELMO ordered for a.m. Admission and Anticipated Discharge Date Admission Date: July 16, 2023 Supervising Physician Co-Signing Physician Notes I have seen and discussed the case with the collaborating KEITH. I agree with the above PN. I have reviewed and confirmed the patients medical history, the findings on physical examination, and the patients diagnosis and treatment plan with Bridget PARKER and agree with the information documented. In short, Ms. Gonzales is admitted for management of RSV and superimposed CAP. Patient reports feeling much improved, but endorsing cough 2/2 mucus production. Exam unremarkable, no resp distress on room air--+cough with deep inhalation. Plan for continue abx, pulm toilet. Byars spray nasal wash added to aid in sputum clearance.. If able to tolerate po regimen will consider transitioning and d/c tomorrow, will continue to eval and assess ability to maintain po as coughing spells prompt vomiting. rest of plan as above I spent a total of 25 minutes coordinating, documenting, and providing care for this patient excluding time spent in the performance of separately billed services. All of the aforementioned completed outside of collaborating with the assigned advanced practitioner for a full treatment plan. Subjective Pt was seen and examined in room 377-2. Follow up PNA and RSV. She continues to have productive cough. Her mucus is thick and getting stuck in throat, unable to expectorate. She has been using flutter valve and ISP. She denies f/c/s, chest pain, sob at rest, n/v, abd pain. She has been having diarrhea 3-4 episodes so far today, watery. Review of Systems Review of Systems: All systems reviewed & are unremarkable except as noted in HPI & below Physical Exam Physical Exam: Gen: WD/WN, ill appearing, lying in bed, NAD, A&O x3 HEENT: Normocephalic, atraumatic, conjunctivae moist, sclerae anicteric, mucous membranes moist. Lung: Clear to Auscultation bilaterally, no wheezes/rales/rhonchi Heart: Regular rate, regular rhythm, no murmurs, rubs, or gallops Abdomen: Soft, NT, ND +BS x 4 Extremities: No edema Skin: Warm, no rash, negative turgor. Results & Data Results & Data Vital Signs (Past 12 Hours) Vital Signs Temp Pulse Resp BP Pulse Ox O2 Del Method 07/18/23 11:42 37.1 C 80 16 103/65 96 Room Air 07/18/23 08:04 36.7 C 86 18 113/74 94 Room Air 07/18/23 07:55 Room Air Laboratory Results I have independently reviewed and interpreted patient's labs including cbc, bmp. Short CBC 07/18/23 Range/Units 06:53 WBC 7.41 (4.8-10.8) K/ul Hgb 13.6 (12.0-16.0) g/dl Hct 41.7 (37.0-47.0) % Plt Count 182 (130-400) K/uL BMP 07/18/23 06:53 Sodium 138 Potassium 4.0 Chloride 108 H Carbon Dioxide 22 BUN 12 Creatinine 0.72 Glucose 101 H Calcium 9.6 Medications Administered Current Inpatient Medications Acetaminophen (Acetaminophen 325 Mg Tab) 650 mg PO Q6H PRN PRN Reason: Pain or Fever Stop: 08/16/23 22:44 Last Admin: 07/17/23 23:28 Dose: 650 mg Albuterol (Albuterol Hfa 8 Gm Inhaler) 2 puffs INH Q4H PRN PRN Reason: Shortness Of Breath Or Wheezin Stop: 08/15/23 22:43 Atorvastatin Calcium (Atorvastatin 40 Mg Tab) 80 mg PO DAILY [facility] Stop: 08/16/23 08:59 Last Admin: 07/18/23 08:17 Dose: 80 mg Bupropion HCl (Bupropion Xl 300 Mg Tabcr) 300 mg PO DAILY [facility] Stop: 08/16/23 08:59 Last Admin: 07/18/23 08:17 Dose: 300 mg Calcium Carbonate (Calcium Carbonate 1250mg Tab) 1,250 mg PO DAILY [facility] Stop: 08/16/23 08:59 Last Admin: 07/18/23 08:17 Dose: 1,250 mg Clopidogrel Bisulfate (Clopidogrel Bisulfate 75 Mg Tab) 75 mg PO QAM [facility] Stop: 08/16/23 08:59 Last Admin: 07/18/23 08:16 Dose: 75 mg Enoxaparin Sodium (Enoxaparin Inj 40 Mg/0.4 Ml Syr) 40 mg SQ PM [facility] Stop: 08/15/23 22:43 Last Admin: 07/17/23 20:49 Dose: 40 mg Fluoxetine HCl (Fluoxetine Hcl 20 Mg Cap) 20 mg PO DAILY [facility] Stop: 08/16/23 08:59 Last Admin: 07/18/23 08:16 Dose: 20 mg Fluticasone Propionate (Fluticasone Propionate Na Spr 16 Gm Btl) 2 sprays TIMOTHY HS [facility] Stop: 08/16/23 22:59 Last Admin: 07/17/23 23:28 Dose: 2 sprays Furosemide (Furosemide 20 Mg Tab) 20 mg PO QAM PRN PRN Reason: edema Stop: 08/15/23 22:43 Guaifenesin (Guaifenesin 600 Mg Tabcr) 1,200 mg PO Q12 [facility] Stop: 08/16/23 20:59 Last Admin: 07/18/23 08:15 Dose: 1,200 mg Ceftriaxone Sodium 2,000 mg/ (Dextrose) 50 mls @ 100 mls/hr IV DAILY [facility]; Protocol Stop: 07/24/23 08:59 Last Infusion: 07/18/23 10:33 Dose: Infused Doxycycline Hyclate 100 mg/ (Dextrose) 100 mls @ 50 mls/hr IV Q12H [facility] Stop: 07/24/23 00:00 Last Infusion: 07/18/23 13:12 Dose: Infused Metoprolol Succinate (Metoprolol Succ 25mg Ext Rel Tab) 25 mg PO QAM [facility] Stop: 08/16/23 08:59 Last Admin: 07/18/23 08:15 Dose: 25 mg Ondansetron HCl (Ondansetron Inj 2 Mg/Ml 2 Ml Vial) 4 mg IV Q6H PRN PRN Reason: Nausea Stop: 08/15/23 22:43 Pantoprazole Sodium (Pantoprazole 40 Mg Tab) 40 mg PO QAM [facility] Stop: 08/16/23 08:59 Last Admin: 07/18/23 08:15 Dose: 40 mg Saccharomyces Boulardii (Saccharomyces Boulardii 250 Mg Cap) 250 mg PO DAILY [facility] Stop: 08/17/23 11:29 Last Admin: 07/18/23 12:44 Dose: 250 mg Sodium Chloride (Sodium Chloride 0.65% Na Soln 45 Ml (Byars)) 2 sprays NA BID [facility] Stop: 08/17/23 10:14 Last Admin: 07/18/23 11:15 Dose: 2 sprays Vitamin D (Cholecalciferol 5,000 Units 125 Mcg Tab) 5,000 units PO DAILY [facility] Stop: 08/16/23 08:59 Last Admin: 07/18/23 08:16 Dose: 5,000 units
[2023-07-18 15:23] LABS: Adenovirus F 40/41 PCR Not Detected (NotDetected); Astrovirus PCR Not Detected (NotDetected); Campylobacter PCR Not Detected (NotDetected); Cryptosporidium PCR Not Detected (NotDetected); Cyclospora cayetanensis PCR Not Detected (NotDetected); Entamoeba histolytica PCR Not Detected (NotDetected); Enteroaggregative E.coli(EAEC) Not Detected (NotDetected); Enteropathogenic E.coli (EPEC) Not Detected (NotDetected); Enterotoxigenic E.coli (ETEC) Not Detected (NotDetected); Giardia lamblia PCR Not Detected (NotDetected); Norovirus GI/GII PCR Not Detected (NotDetected); Plesiomonas shigelloides PCR Not Detected (NotDetected); Rotavirus A PCR Not Detected (NotDetected); Salmonella PCR Not Detected (NotDetected); Sapovirus PCR Not Detected (NotDetected); Shiga-like Toxin E.coli (STEC) Not Detected (NotDetected); Shigella/Enteroinvasive E.coli Not Detected (NotDetected); Vibrio cholerae PCR Not Detected (NotDetected); Vibrio species PCR Not Detected (NotDetected); Yersinia enterocolitica PCR Not Detected (NotDetected)
[2023-07-18] MEDS ORDERED: LOPERAMIDE HCL 2 MG CAP PO PRN (15:51)
[2023-07-18] MEDS: ACETAMINOPHEN 325 MG TAB PO PRN (17:14)
[2023-07-18] MEDS: ENOXAPARIN INJ 40 MG/0.4 ML SYR SQ SCH (21:10)
[2023-07-18] MEDS: FLUTICASONE PROPIONATE NA SPR 16 GM BTL NAE SCH (21:11)
[2023-07-19] MEDS ORDERED: KETOROLAC TROMETHAMINE 15 MG/ML VIAL IV ONE (07:56)
[2023-07-19 07:58] LABS: Calcium 8.9 mg/dl (8.6-10.3); Magnesium 1.8 mg/dl (1.7-2.4); Potassium 3.5 mmol/L (3.5-5.1)
[2023-07-19 08:04] LABS: BUN Creatinine Ratio 12.7 (10-20); Creatinine Clr Calc Pharmacy 99.2 ml/min; Est GFR (African American) 109.1 ml/min; Est GFR (Non-African American) 94.1 ml/min
[2023-07-19] MEDS: ATORVASTATIN 40 MG TAB PO SCH (08:07)
[2023-07-19] MEDS: FLUoxetine HCL 20 MG CAP PO SCH (08:08)
[2023-07-19] MEDS: CLOPIDOGREL BISULFATE 75 MG TAB PO SCH (08:08)
[2023-07-19] MEDS: guaiFENesin 600 MG TABCR PO SCH (08:08)
[2023-07-19] MEDS: CHOLECALCIFEROL 5,000 UNITS 125 MCG TAB PO SCH (08:08)
[2023-07-19] MEDS: METOPROLOL SUCC 25MG EXT REL TAB PO SCH (08:08)
[2023-07-19] MEDS: buPROPion XL 300 MG TABCR PO SCH (08:08)
[2023-07-19] MEDS: CALCIUM CARBONATE 1250MG TAB PO SCH (08:08)
[2023-07-19] MEDS: SODIUM CHLORIDE 0.65% NA SOLN 45 ML (OCEAN) SCH (08:09)
[2023-07-19] MEDS: SACCHAROMYCES BOULARDII 250 MG CAP PO SCH (08:09)
[2023-07-19] MEDS: PANTOprazole 40 MG TAB PO SCH (08:09)
[2023-07-19] MEDS: cefTRIAXone SODIUM 2,000 MG in DEXTROSE 5 % MINI-B 50 ML IV SCH (08:19)
[2023-07-19] MEDS: DOXYCYCLINE HYCLATE 100 MG in DEXTROSE 5% MINI-B 100 ML IV SCH (12:03)
--- NOTE | 2023-07-19 13:49 | Discharge Summary ---
Discharge Summary Date of Service July 19, 2023 Notes For Next Care Provider Patient hospitalized secondary to viral pneumonia and RSV. She was treated with aggressive pulmonary toilet and symptoms improved. She was empirically placed on IV Rocephin and doxycycline. She is being discharged on oral doxycycline. Feel less likely a bacterial component. Will complete course of antibiotic. On day of discharge she was complaining of back pain, likely musculoskeletal secondary to coughing. She has been prescribed Flexeril at discharge as needed and encouraged to take Tylenol at home. If symptoms persist she is encouraged to follow-up with PCP for further evaluation. Medication Changes From Visit Doxycycline 100 mg twice daily for an additional 5 days. Next dose due 07/20/2023 at 8 AM. Probiotic 1 tablet daily for additional 5 days while on antibiotic therapy. Albuterol inhaler every 4 hours as needed for shortness of breath, wheezing or significant coughing. Flexeril (cyclobenzaprine) 5 mg twice a day as needed for back pain. Recommend utilizing [id number] Mucinex twice daily as needed for coughing. Recommend utilizing [id number] Tylenol as needed for back pain. Continue all other medications as prescribed. Admission HPI Per Admitting Provider 67-year-old female with past medical history significant for hyperlipidemia, prediabetes, history of CAD, hypertension, GERD, overactive bladder, left-sided vestibular schwannoma s/p SRS, GERD anxiety disorder, obesity, depression, presents with headache, body aches, generalized weakness, sore throat, cough, chest pain from coughing, shortness of breath and was in the ER earlier in the day and found to be RSV positive and also pneumonia in the CAT scan and discharged on cefdinir and doxycycline but comes back because after going home had lot of nausea and vomiting could not take anything p.o. Currently resting comfortably. Denies abdominal pain. No diarrhea. Micturating okay. Hemodynamically stable. Past med history. As mentioned above Past surgical history. augmentation of facial bones. Right carpal tunnel surgery. Cholecystectomy. Colonoscopy. Foot surgeries. Ligation of oviducts. Reduction of breast bilateral. Appendectomy. Bilateral removal of eyelid lesions. Bilateral cataracts. Repair of bladder defect. Repair of brow ptosis. Bilateral blepharoplasty upper eyelid revised. Total hysterectomy Social history. . Quit smoking 2019. Smoked half pack a day for 20 years. Alcohol occasional. No drug use. Family history. Aunt has brain cancer. Mother had COPD, diabetes, heart disorder, thyroid disorder. Father had prostate cancer. Diabetes. Sister has thyroid disorder Admission Exam Per Admitting Provider General- Not in distress Head- atraumatic Eyes- PERRL. ENT- oropharynx clear Neck- supple, no JVD. Lungs- clear to auscultation no wheezing or crackles. Heart- regular rhythm; no murmur, no gallop. Abdomen- normal bowel sounds, soft, nontender, no distension. Extremities- no pretibial edema, no erythema seen Neuro- alert, oriented x 3; PERRL no facial palsy; no dysarthria; moves extremities. Skin- warm & dry Principal Dx & Hospital Course #1 = Principal Diagnosis (1) LLL pneumonia: 67-year-old female with past medical significant for hyperlipidemia, prediabetes, history of CAD, hypertension, GERD, overactive bladder, left-sided vestibular schwannoma s/p SRS, GERD anxiety disorder, obesity, depression, presents with headache, body aches, generalized weakness, sore throat, cough, chest pain from coughing, shortness of breath and was in the ER earlier in the day and found to be RSV positive and also pneumonia in the CAT scan and discharged on cefdinir and doxycycline but comes back because after going home had lot of nausea and vomiting could not take anything p.o. Left lower lobe pneumonia On the CAT scan done earlier in the day Failed outpatient treatment as patient cannot take p.o. from nausea/ vomiting Started IV Rocephin and doxycycline Day #3 Pt tolerating diet, will d/c IV fluids muccinex, ISP, flutter valve, ocean nasal spray encouraged use of prn albuterol for sob/wheezing/coughing Close monitor Pt doing well today, 07/19/23, will discharge home on oral doxycycline for additional 5 days. Encouraged to continue pulmonary toilet, as needed Mucinex RSV Supportive care Nausea and vomiting Antiemetics and IV fluids Droplet precautions Diarrhea daily probiotic Stool culture negative, likely viral 2/2 RSV Prediabetes a1c 5.9 pt aware will follow up with PCP History of CAD On Plavix, statin, beta-nida chronic, stable Hypertension On metoprolol chronic, stable GERD Omeprazole Depression/anxiety On bupropion DVT prophylaxis Lovenox Disposition Medically stable for D/C Full code Pt was seen and examined in collaboration with Dr. chiang, please see addendum Discharge Exam Gen: WD/WN, ill appearing, lying in bed, NAD, A&O x3 HEENT: Normocephalic, atraumatic, conjunctivae moist, sclerae anicteric, mucous membranes moist. Lung: Clear to Auscultation bilaterally, no wheezes/rales/rhonchi Heart: Regular rate, regular rhythm, no murmurs, rubs, or gallops Abdomen: Soft, NT, ND +BS x 4 Extremities: No edema Skin: Warm, no rash, negative turgor. Updated Medication List Medication Instructions Recorded Confirmed Type calcium carbonate 600 mg calcium 600 mg PO DAILY 12/05/19 07/16/23 History (1,500 mg) tablet (Calcium) cholecalciferol (vitamin D3) 125 125 mcg PO DAILY 12/05/19 07/16/23 History mcg (5,000 unit) tablet (Vitamin D3) cyanocobalamin (vitamin B-12) 0 mcg PO DAILY 12/05/19 07/16/23 History 1,000 mcg tablet (Vitamin B-12) fluticasone propionate 50 2 spray intranasal DAILY PRN Nasal 12/05/19 07/16/23 History mcg/actuation nasal Congestion spray,suspension (Flonase Allergy Relief) fluoxetine 20 mg capsule 20 mg PO DAILY 04/12/22 07/16/23 History metoprolol succinate 25 mg 25 mg PO QAM #90 tabs 12/06/22 07/16/23 Rx tablet,extended release 24 hr atorvastatin 80 mg tablet 80 mg PO DAILY #90 tabs 01/18/23 07/16/23 Rx clopidogrel 75 mg tablet 75 mg PO QAM #90 tabs 01/18/23 07/16/23 Rx semaglutide 0.25 mg or 0.5 mg (2 2 mg (2.944 mL) subcut .weekly 12 04/12/23 07/16/23 Rx mg/3 mL) subcutaneous pen injector weeks #36 mL (Ozempic) furosemide 20 mg tablet 20 mg PO QAM PRN edema #90 tabs 04/19/23 07/16/23 Rx bupropion HCl 300 mg 24 hr tablet, 300 mg PO DAILY 07/16/23 07/16/23 History extended release cefdinir 300 mg capsule 300 mg PO BID 7 days #14 caps 07/16/23 07/16/23 Rx omeprazole 20 mg capsule,delayed 20 mg PO QAM 07/16/23 07/16/23 History release ondansetron 4 mg disintegrating 4 mg PO Q6H PRN nausea and 07/16/23 07/16/23 Rx tablet vomiting #15 tabs Saccharomyces boulardii 250 mg 250 mg PO DAILY #10 caps 07/19/23 Rx capsule (Florastor) albuterol sulfate 90 mcg/actuation 2 puff inhalation Q4H PRN 07/19/23 Rx aerosol inhaler (Ventolin HFA) shortness of breath or wheezing #6.7 grams cyclobenzaprine 5 mg tablet 5 mg PO BID PRN muscle spasm #6 07/19/23 Rx tabs doxycycline hyclate 100 mg capsule 100 mg PO BID 5 days #10 caps 07/19/23 Rx Hospital Stay Data Consultations 07/16/23 19:50 ED Decision to Admit Stat Diagnostic Imagining Performed Chest CTA: CT ANGIOGRAPHY OF THE CHEST, PULMONARY EMBOLUS PROTOCOL CLINICAL HISTORY: PE, CP, COVID+, shoulder pain COMPARISON STUDY: Chest radiograph performed earlier today. Chest radiograph January 30, 2022. TECHNIQUE: Following IV administration of 119 mL of Optiray, helical axial images of the chest were obtained utilizing the pulmonary embolus protocol. Maximal intensity projections and sagittal and coronal reformats were viewed on an independent 3D workstation. IV contrast was administered without complication. Automated exposure control was utilized for the study. A dose lowering technique was utilized adhering to the principles of ALARA. FINDINGS: No pulmonary emboli are identified. There is no thoracic aortic dissection. Size of the heart is normal. Moderate coronary artery calcification is present. Central airways are patent. Mild bronchial wall thickening is present. Small cluster of tree-in-bud nodules within the left lower lobe are noted with mild adjacent ground glass opacity. No central obstructing mass is present. There is no cavitation. There is no pneumothorax or pleural effusion. Gallbladder is surgically absent. Aberrant right subclavian artery is incidentally noted. IMPRESSION: 1. No pulmonary emboli identified. 2. Small cluster of tree-in-bud nodules with mild groundglass opacity within the left lower lobe suggestive of an infectious process. 3. Mild bronchial wall thickening. Head CT: CT OF THE HEAD WITHOUT CONTRAST CLINICAL HISTORY: pressure, covid, hx brain tumor COMPARISON STUDY: MRI of the brain December 05, 2019. CT DOSE: 1469.01 mGy.cm TECHNIQUE: Helical axial images of the head were obtained without IV contrast. Automated exposure control was utilized for the study. A dose lowering technique was utilized adhering to the principles of ALARA. FINDINGS: No acute intracranial hemorrhage, midline shift or mass effect is present. The ventricular system is unremarkable. The basal cisterns are patent. No extra-axial collections are present. There are no findings to suggest acute dural sinus thrombosis or acute territorial infarct. No significant calvarial abnormalities are present. Ethmoid sinus mucosal thickening is similar to previous MRI. 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 IMPRESSION: 1. No acute intracranial findings. 2. The left internal auditory canal mass shown on MRI of December 05, 2019 is not well-visualized by CT. Pending Results Patient Have Any Pending Studies at Discharge: No Discharge Instructions Given to Patient (Per Discharging Provider) MEDICATION CHANGES: Doxycycline 100 mg twice daily for an additional 5 days. Next dose due 07/20/2023 at 8 AM. Probiotic 1 tablet daily for additional 5 days while on antibiotic therapy. Albuterol inhaler every 4 hours as needed for shortness of breath, wheezing or significant coughing. Flexeril (cyclobenzaprine) 5 mg twice a day as needed for back pain. Recommend utilizing [id number] Mucinex twice daily as needed for coughing. Recommend utilizing [id number] Tylenol as needed for back pain. Continue all other medications as prescribed. SUMMARY OF TEST RESULTS: You were admitted to hospital secondary to pneumonia. You tested positive for a viral infection known as RSV. Your pneumonia is likely to be related to the viral illness. You are being treated with antibiotics just in case there is a bacterial component. PENDING TEST RESULTS: None RECOMMENDATIONS FOR FOLLOW-UP: Please follow-up with your primary care provider as scheduled. Activity as tolerated but would take it easy through the end of the week. Recommend staying well-hydrated. Continue to use flutter valve and incentive spirometry. OTHER INSTRUCTIONS: Seek medical attention if you have: * temperature above 101 * chest pain or trouble breathing * abdominal pain, nausea, vomiting * diarrhea, dark stools or bloody stools * any unanswered questions or concerns Call 911 if symptoms are severe. Please take good care of yourself. It has been a pleasure taking care of you. Please take care of yourself. If you have any questions regarding your recent hospitalization please contact [facility] and request Yoselin Garcia @ [phone]. Ariela Gill PA-C Total Time Total Time Spent Total Time Spent (In Minutes): 45 minutes Supervising Physician Co-Signing Physician Notes I have seen and discussed the case with the collaborating KEITH. I agree with the above PN. I have reviewed and confirmed the patients medical history, the findings on physical examination, and the patients diagnosis and treatment plan with Bridget PARKER and agree with the information documented. In short, Ms. Gonzales is admitted for management of RSV and superimposed CAP. Patient reports feeling much improved. Her cough today is less frequent and less productive. VS remain WNL, afebrile. Exam unremarkable, no resp distress on room air, able to inhale without acute cough. Plan for 5 more days doxy abx, as well as supportive treatment outlined above. Given concern of back spasm, will send with short course of flexeril and to ensure op follow up if back pain does not resolve.UA clean on discharge. rest of plan as above I spent a total of 20 minutes coordinating, documenting, and providing care for this patient excluding time spent in the performance of separately billed services. All of the aforementioned completed outside of collaborating with the assigned advanced practitioner for a full treatment plan.
[2023-07-19 14:05] LABS: Appearance Urine Clear (Clear); Bacteria Urine Automated Negative (Negative); Bilirubin Urine Negative (Negative); Blood Urine Negative (Negative); Color Urine Dark Yellow; Epithelial Cell Urine Auto >30 /lpf (0-5); Glucose Urine UA Negative (Negative); Ketones Urine Trace (Negative); Leukocyte Esterase Urine Negative (Negative); Nitrite Urine Negative (Negative); Protein Urine Trace (Negative); RBC Urine Automated 0-4 /hpf (0-4); Specific Gravity Urine 1.024 (1.000-1.030); Urobilinogen Urine Negative (Negative)
== END 2023-07-19 17:25 | disposition home or self-care (01) | DRG 195 ==
LOC: ED 17:52 → EDINP 20:49 → 3N 22:24